=== PATIENT | female | born 1935 | race Caucasian/White ===

== ENCOUNTER 2020-03-26 07:34 | Outpatient (REF) | payer MEDICARE, SELFPAY ==
[2020-03-26 10:08] LABS: MANUAL DIFF FLAG NO
[2020-03-26 10:11] LABS: Glucose Urine UA NEG (NEG); Leukocyte Esterase Urine NEG (NEG); Nitrite Urine NEG (NEG); PH 6.5 (5.0-8.0); Urine Blood NEG (NEG); Urine Ketones NEG (NEG); Urine Protein NEG (NEG-TRACE)
[2020-03-26 10:14] LABS: Appearance Urine HAZY; Color Urine YELLOW
[2020-03-26 10:15] LABS: Basophils Absolute Auto 0.1 X10*3/uL (0.0-0.2); Eosinophils Absolute Auto 0.1 X10*3/uL (0.0-0.4); Eosinophils Percent Auto 1.5 % (0-4); Hematocrit 30.6 % (37-47); Hemoglobin 11.4 g/dl (12.0-16.0); Imm Gran Abs Auto 0.01 X10*3/uL (0.00-0.03); Imm Gran Pct Auto 0.2 % (0.0-0.4); Lymphocytes Percent Auto 16.6 % (20-40); Mean Corpuscular HGB Conc 37.3 g/dl (31.0-35.0); Mean Corpuscular Hemoglobin 35.3 pg (27.0-33.0); Mean Corpuscular Volume 94.7 fL (80-98); Mean Platelet Volume 11.2 fL (9.4-12.3); Monocytes Absolute Auto 0.4 X10*3/uL (0.1-1.2); Monocytes Percent Auto 6.5 % (2-11); Neutrophils Absolute Auto 4.3 X10*3/uL (2.0-8.3); Neutrophils Percent Auto 74.2 % (45-73); Platelet Count 323 X10*3/uL (160-400); Red Blood Count 3.23 X10*6/uL (4.20-5.50); Red Cell Distribution Width 20.2 % (11.0-16.0); White Blood Count 5.8 X10*3/uL (4.8-10.8)
[2020-03-26 10:43] LABS: Alanine Aminotransferase 11 U/L (0-31); Alkaline Phosphatase 73 U/L (39-117); Anion Gap 12 (12-20); Aspartate Amino Transferase 14 U/L (5-31); Bilirubin Total 0.9 mg/dL (0.0-1.0); Blood Urea Nitrogen 19 mg/dL (9-16); Calcium 8.8 mg/dL (8.4-10.2); Carbon Dioxide 29 mmol/L (22-29); Chloride 102 mmol/L (96-108); Cholesterol 143 mg/dL; Estimated Glomerular Filt Rate > 60; Glucose Fasting 86 mg/dL (60-99); HDL Cholesterol 66 mg/dL; LDL Cholesterol Calculated 62 mg/dl; Potassium 4.3 mmol/l (3.3-5.1); Sodium 139 mmol/L (135-145); Total Protein 6.3 g/dL (6.5-8.0); Triglycerides 76 mg/dL
[2020-03-26 11:11] LABS: T4 Thyroxine 7.3 ug/dL (4.5-12.0); Thyroid Stimulating Hormone 2.65 uIU/mL (0.32-4.0)
[2020-03-26 11:24] LABS: Folate > 20.0 ng/mL (> or = 4.0); Vitamin B12 > 2000 pg/mL (200-900)
[2020-03-26 11:45] LABS: Vitamin D 25-OH Total 164.3 ng/mL (>30)
== END 2020-03-26 07:35 | disposition home or self-care (01) ==
LOC: HO.10HDL 07:34
PROVIDERS: Visit Provider Internal Medicine
DX: I10 Essential (primary) hypertension (principal); E78.00 Pure hypercholesterolemia, unspecified; M81.0 Age-related osteoporosis without current pathological fracture; F41.9 Anxiety disorder, unspecified; N39.0 Urinary tract infection, site not specified
CPT/HCPCS: 36415; 80053; 80061; 81003; 82306; 82607; 82746; 84436; 84443; 85025

== ENCOUNTER 2020-03-30 10:46 | Outpatient (REF) | payer MEDICARE, SELFPAY ==
--- NOTE | 2020-03-30 | MM_ITS ---
EXAMINATION: MM DIAGNOSTIC DIGITAL BREAST TOMOSYNTHESIS, BILATERAL CLINICAL INFORMATION: Due for yearly. Also follow-up probable benign parenchymal asymmetry posterior central left breast. The lifetime risk of breast cancer based on the Tyrer-Cuzick Model is 1%. COMPARISON: Mammography: 09/23/2019, 09/11/2019 (BI-RADS 0), 09/09/2018; outside exams 09/03/2017, 08/31/2016 ([facility]). TECHNIQUE: Digital breast tomosynthesis is performed in both the craniocaudal and mediolateral oblique views along with computer-aided detection (CAD). Synthesized 2D images are generated from the tomosynthesis. Additional left CC views are provided. FINDINGS: There are scattered areas of fibroglandular density (ACR BI-RADS breast composition Category b). There is no developing density or interval mass or architectural abnormality or abnormal calcifications. The finding for follow-up posterior central left breast on CC view is less conspicuous, decreased since 09/11/2019. The axilla and skin contours are unremarkable. Results are provided to the patient at time of visit by the technologist. Chronic surveillance for left-sided finding will be included at next bilateral mammography. MM/MM tomosynthesis diagnostic BI IMPRESSION: 1. No mammographic evidence of malignancy. 2. Finding on left for follow-up is less conspicuous, decreased. ASSESSMENT: BI-RADS 3: Probably Benign RECOMMENDATION: Diagnostic mammography at time of next annual exam, due in 12 months. This patient's information was entered into a reminder system with a target due date for their next mammogram.
== END 2020-03-30 10:47 | disposition home or self-care (01) ==
LOC: HO.MAMMO 10:46
PROVIDERS: Visit Provider Internal Medicine
DX: N64.89 Other specified disorders of breast (principal)
CPT/HCPCS: 77062; 77066

== ENCOUNTER 2020-04-26 11:23 | Outpatient (REF) | payer MEDICARE, SELFPAY ==
[2020-04-26 13:48] LABS: MANUAL DIFF FLAG NO
[2020-04-26 13:58] LABS: Basophils Absolute Auto 0.1 X10*3/uL (0.0-0.2); Basophils Percent Auto 1.1 % (0-2); Eosinophils Absolute Auto 0.1 X10*3/uL (0.0-0.4); Eosinophils Percent Auto 1.5 % (0-4); Hematocrit 33.7 % (37-47); Hemoglobin 10.9 g/dl (12.0-16.0); Imm Gran Abs Auto 0.02 X10*3/uL (0.00-0.03); Imm Gran Pct Auto 0.3 % (0.0-0.4); Immature Retic Fraction 15.2 % (3.0-15.9); Lymphocytes Absolute Auto 1.6 X10*3/uL (1.2-4.9); Lymphocytes Percent Auto 25.4 % (20-40); Mean Corpuscular HGB Conc 32.3 g/dl (31.0-35.0); Mean Corpuscular Hemoglobin 27.5 pg (27.0-33.0); Mean Corpuscular Volume 84.9 fL (80-98); Mean Platelet Volume 12.1 fL (9.4-12.3); Monocytes Absolute Auto 0.5 X10*3/uL (0.1-1.2); Monocytes Percent Auto 7.4 % (2-11); Neutrophils Absolute Auto 3.9 X10*3/uL (2.0-8.3); Neutrophils Percent Auto 64.3 % (45-73); Platelet Count 316 X10*3/uL (160-400); Red Blood Count 3.97 X10*6/uL (4.20-5.50); Red Cell Distribution Width 15.1 % (11.0-16.0); Retic HGB Equivalent 32.5 pg (30.0-35.0); Reticulocyte Percent 1.2 % (0.5-1.8); Reticulocytes Absolute 0.046 X10*6/uL (0.026-0.095); White Blood Count 6.1 X10*3/uL (4.8-10.8)
[2020-04-26 14:43] LABS: Iron 98 mcg/dL (30-160); Percent Iron Saturation 26 % (15-50); Total Iron Binding Capacity 380 mcg/dL (228-428); Unsaturated Iron Binding 282 ug/dL
[2020-04-26 15:04] LABS: Ferritin 10 ng/mL (10-250)
[2020-04-30 07:08] LABS: Folate > 20.0 ng/mL (> or = 4.0); Vitamin B12 > 2000 pg/mL (200-900)
== END 2020-04-26 11:24 | disposition home or self-care (01) ==
LOC: HO.10HDL 11:23
PROVIDERS: Visit Provider Internal Medicine
DX: D64.9 Anemia, unspecified (principal)
CPT/HCPCS: 36415; 82607; 82728; 82746; 83540; 85025; 85045

== ENCOUNTER 2020-06-02 09:54 | Emergency (ER) | payer MEDICARE, SELFPAY ==
--- NOTE | ~2020-06-02 | US_ITS ---
EXAMINATION: US VENOUS ULTRASOUND WITH DOPPLER LOWER EXTREMITY, RIGHT CLINICAL INFORMATION: Right calf pain COMPARISON: None TECHNIQUE: Ultrasound of the deep veins is performed from the hip to the calf with compression sonography and color and pulse Doppler assessment. Spectral analysis with color-flow imaging is performed. FINDINGS: There is normal venous compression and respiratory variation and augmented flow. The visualized common femoral vein, superficial femoral vein, profunda femoral vein, popliteal vein, and the trifurcation region shows no evidence of deep venous thrombosis. There is no significant popliteal fossa cyst. US/US venous duplex LE RT IMPRESSION: No DVT demonstrated in the right lower extremity.
--- NOTE | ~2020-06-02 | XR_ITS ---
EXAMINATION: XR KNEE, RIGHT CLINICAL INFORMATION: Right knee pain. COMPARISON: None TECHNIQUE: Four views of the right knee. FINDINGS: There is loss of medial and patellofemoral compartment joint space with moderate periarticular spurring. No loose bodies, bony erosive changes or joint effusion seen. No acute fracture or dislocation. XR/XR knee RT 4V IMPRESSION: Osteoarthritic changes medial and patellofemoral compartment right knee. No abnormal joint effusion or loose body seen.
[2020-06-02 10:09] VITALS: BP 146/92; PULSE 77; RESP 16; TEMP 36.4; O2SAT 98; BMI 24.6
--- NOTE | 2020-06-02 11:01 | ED.GENADULT ---
HPI - General Adult General Chief complaint: Extremity Injury, Lower Stated complaint: leg pain Time Seen by Provider: 06/02/20 12:34 Source: patient Mode of arrival: ambulatory Limitations: no limitations History of Present Illness HPI narrative: Patient presents to ED for right posterior calf pain since yesterday. Patient denies any recent trauma to right lower extremity. Patient came to the ED to be evaluated due to history of DVT in the right leg. Patient denies any chest pain or shortness of breath. Related Data Home Medications Medication Instructions Recorded Confirmed aspirin 81 mg tablet,delayed 81 mg PO DAILY 04/20/20 04/20/20 release calcium carbonate 600 mg calcium 600 mg PO BID 04/20/20 04/20/20 (1,500 mg) tablet estradiol 1 appful VAGINAL DAILY 04/20/20 04/20/20 fluconazole 150 mg tablet 150 mg PO DAILY 04/20/20 04/20/20 hydrochlorothiazide 25 mg tablet 25 mg PO DAILY 04/20/20 04/20/20 multivitamin 1 tab PO DAILY 04/20/20 04/20/20 omeprazole 20 mg capsule,delayed 20 mg PO BID 04/20/20 04/20/20 release oxybutynin chloride 5 mg 5 mg PO DAILY 04/20/20 04/20/20 tablet,extended release 24 hr Previous Rx's Medication Instructions Recorded raloxifene 60 mg tablet 60 mg PO DAILY #90 tab 01/17/20 celecoxib 200 mg capsule 200 mg PO DAILY #90 cap 03/29/20 atorvastatin 10 mg tablet 10 mg PO DAILY #90 tab 04/09/20 lorazepam 1 mg tablet 1 mg PO BID-QID PRN 90 Days #300 04/20/20 tab Allergies Allergy/AdvReac Type Severity Reaction Status Date / Time lisinopril [LISINOPRIL] Allergy Mild COUGH, Verified 04/06/20 11:21 shortness of breath Review of Systems Review of Systems: Yes all other systems are reviewed and are negative Constitutional: Constitutional: Reports as per HPI and Reports no additional constitutional complaints Eyes: Eyes: Reports as per HPI and Reports no additional eye complaints ENT: Reports system reviewed and no additional complaints, except as documented and Reports as per HPI Cardiovascular: Cardiovascular: Reports as per HPI and Reports no additional cardiovascular complaints Respiratory: Respiratory: Reports as per HPI and Reports no additional respiratory complaints Gastrointestinal: Gastrointestinal: Reports as per HPI and Reports no additional gastrointestinal complaints Genitourinary: Genitourinary: Reports no additional female genitourinary complaints and Reports as per HPI Musculoskeletal: Musculoskeletal: Reports no additional musculoskeletal complaints and Reports as per HPI Comments: Right posterior calf pain Neurologic: Reports system reviewed and no additional complaints, except as documented and Reports as per HPI Psychiatric: Psychiatric: Reports no additional psychiatric complaints and Reports as per HPI [facility] Past Medical History Medical History (Updated 06/02/20 @ 16:23 by WARD Montero) Anxiety Basal cell carcinoma Esophageal stricture GERD (gastroesophageal reflux disease) Hypercholesterolemia Hypertension Macular degeneration Osteoarthritis Osteoporosis Thyroid nodule Surgical History History of appendectomy History of bilateral cataract extraction History of left hip replacement History of right hip replacement History of total abdominal hysterectomy and bilateral salpingo-oophorectomy S/P thyroid biopsy Family History Family History (Updated 03/23/20 @ 09:37 by Maria Victoria Toro Robyn) Father Hemorrhage Mother Colitis Brother Multiple myeloma Sister Lymphoma Son In good health Daughter In good health Daughter In good health Social History Social History (Updated 04/20/20 @ 14:26 by Eileen Osborn CMA) Alcohol intake: never Smoking Status: Never smoker Smoked in Last 30 Days: No Use of substances other than those prescribed or required for medical reasons: No Advance Directives: Yes Advance Directives Information Provided: Yes Advance Directives on File: No Physical Exam Vital Signs: Vital Signs: Last Vital Signs Temp 97.6 F 06/02/20 10:09 Pulse 77 06/02/20 10:09 Resp 16 06/02/20 10:09 BP 146/92 H 06/02/20 10:09 Pulse Ox 98 06/02/20 10:09 Body Mass Index 24.6 Const: General: cooperative, healthy appearing, comfortable, no acute distress, well developed, alert and awake Orientation/consciousness: patient oriented x3 HENMT: Head: Yes normal to inspection, Yes No palpable skull fracture present, Yes normocephalic, Yes atraumatic and Yes abrasion Eyes: General: appearance normal, both eyes and all related structures Neck: Neck: Yes normal visual inspection, Yes full ROM, Yes no lymphadenopathy, Yes no meningeal signs, Yes trachea midline, Yes supple and No tender Resp: Effort & Inspection: normal respiratory effort and able to speak in complete sentences Auscultation: clear to auscultation bilaterally Cardio: Jugular venous distension: no JVD Heart sounds: S1 normal heart sound present and S2 normal heart sound present GI: Inspection: Yes normal to inspection and No abdominal wall ecchymosis Palpation (GI): Soft to palpation, not firm, nontender, no guarding and not rigid : General: No CVA tenderness and Yes no CVA tenderness Back/Spine/Pelvis: Back: no CVA tenderness, No CVA tenderness and No back tenderness Skin: General skin exam: no rashes or lesions noted and elasticity normal Neuro: General: patient oriented x3, moves all extremities and no meningeal signs Cranial nerves: Yes CN's II-XII intact bilaterally Extrem: Other: Right lower extremity: Negative for swelling, redness, hotness, ecchymosis, deformity of knee/thigh/leg/foot. Mild calf tenderness. Palpable pedal pulses. Vascular/motor/neuro exam intact. Negative for pitting edema Psych: Appearance: grossly normal, well kempt and not disheveled Course Course Course Narrative: Due to history of DVT patient will be sent for right lower extremity ultrasound to make sure there is no DVT. Reevaluation(s) Reevaluation #1: Lower extremity negative for DVT. Reevaluation #2: Xray negative for fracture. positive for osteoarthritis. Medical Decision Making MDM Narrative Medical decision making narrative: osteoarthritis Discharge Plan Discharge Clinical Impression: Osteoarthritis Patient Disposition: Home, Self-Care Instructions: Osteoarthritis (ED), Arthritis (ED) Additional Instructions: Return to the ED for lower extremity swelling, pitting edema, redness, calf pain, fever, chills, chest pain, shorntess of breath, worsening knee pain, or any other concerning symptoms. Take over the counter tyelnol for pain. Prescriptions: No Action raloxifene 60 mg tablet 60 mg PO DAILY Qty: 90 RF: 3 celecoxib 200 mg capsule 200 mg PO DAILY Qty: 90 RF: 2 atorvastatin 10 mg tablet 10 mg PO DAILY Qty: 90 RF: 3 multivitamin Tablet 1 tab PO DAILY RF: 0 calcium carbonate [Calcium 600] 600 mg calcium (1,500 mg) tablet 600 mg PO BID RF: 0 aspirin [Adult Aspirin Regimen] 81 mg tablet,delayed release (DR/EC) 81 mg PO DAILY RF: 0 fluconazole [Diflucan] 150 mg tablet 150 mg PO DAILY RF: 0 estradiol [Estrace] 0.01 % (0.1 mg/gram) cream 1 appful vaginal DAILY RF: 0 oxybutynin chloride [Ditropan XL] 5 mg tablet extended release 24hr 5 mg PO DAILY RF: 0 hydrochlorothiazide 25 mg tablet 25 mg PO DAILY RF: 0 omeprazole 20 mg capsule,delayed release(DR/EC) 20 mg PO BID RF: 0 lorazepam 1 mg tablet 1 mg PO BID-QID PRN (Reason: anxiety) 90 Days Qty: 300 RF: 2 Referrals: Po,Tor Fang MD [Primary Care Provider] - 2 days (Ultrasound negative for DVT. knee Xray shows osteoarthritis.) Print Language: Ukrainian
== END 2020-06-02 17:00 | disposition home or self-care (01) ==
PROVIDERS: Emergency Provider Emergency Medicine; PCP Internal Medicine
DX: M19.09 Primary osteoarthritis, other specified site (principal); M79.661 Pain in right lower leg; I10 Essential (primary) hypertension; Z86.718 Personal history of other venous thrombosis and embolism; Z79.82 Long term (current) use of aspirin; Z79.899 Other long term (current) drug therapy
CPT/HCPCS: 73564; 93971; 99283; 99284

== ENCOUNTER 2020-06-08 09:06 | Outpatient (REF) | payer MEDICARE, SELFPAY ==
[2020-06-08 10:26] LABS: MANUAL DIFF FLAG NO
[2020-06-08 10:42] LABS: Basophils Absolute Auto 0.1 X10*3/uL (0.0-0.2); Basophils Percent Auto 1.5 % (0-2); Eosinophils Absolute Auto 0.1 X10*3/uL (0.0-0.4); Eosinophils Percent Auto 2.3 % (0-4); Hematocrit 34.5 % (37-47); Imm Gran Abs Auto 0.01 X10*3/uL (0.00-0.03); Imm Gran Pct Auto 0.2 % (0.0-0.4); Immature Retic Fraction 10.8 % (3.0-15.9); Lymphocytes Absolute Auto 1.3 X10*3/uL (1.2-4.9); Lymphocytes Percent Auto 25.3 % (20-40); Mean Corpuscular HGB Conc 31.9 g/dl (31.0-35.0); Mean Corpuscular Hemoglobin 27.2 pg (27.0-33.0); Mean Corpuscular Volume 85.4 fL (80-98); Mean Platelet Volume 11.9 fL (9.4-12.3); Monocytes Absolute Auto 0.4 X10*3/uL (0.1-1.2); Monocytes Percent Auto 8.1 % (2-11); Neutrophils Absolute Auto 3.3 X10*3/uL (2.0-8.3); Neutrophils Percent Auto 62.6 % (45-73); Platelet Count 300 X10*3/uL (160-400); Red Blood Count 4.04 X10*6/uL (4.20-5.50); Red Cell Distribution Width 15.2 % (11.0-16.0); Retic HGB Equivalent 29.9 pg (30.0-35.0); Reticulocytes Absolute 0.042 X10*6/uL (0.026-0.095); White Blood Count 5.2 X10*3/uL (4.8-10.8)
[2020-06-08 11:01] LABS: Iron 41 mcg/dL (30-160); Percent Iron Saturation 11 % (15-50); Total Iron Binding Capacity 357 mcg/dL (228-428); Unsaturated Iron Binding 316 ug/dL
[2020-06-08 11:08] LABS: Ferritin 11 ng/mL (10-250)
[2020-06-08 11:29] LABS: Folate 19.1 ng/mL (> or = 4.0); Vitamin B12 1815 pg/mL (200-900)
== END 2020-06-08 09:07 | disposition home or self-care (01) ==
LOC: HO.10HDL 09:06
PROVIDERS: Visit Provider Internal Medicine
DX: D64.9 Anemia, unspecified (principal)
CPT/HCPCS: 36415; 82607; 82728; 82746; 83540; 85025; 85045

== ENCOUNTER 2020-10-19 12:15 | Outpatient (REF) | payer MEDICARE, SELFPAY ==
[2020-10-19 14:01] LABS: Glucose Urine UA NEG (NEG); Leukocyte Esterase Urine 3+ (NEG); Nitrite Urine NEG (NEG); Specific Gravity - Urine 1.015 (1.005-1.025); UACC Culture Trigger YES; Urine Blood NEG (NEG); Urine Ketones NEG (NEG); Urine Protein NEG (NEG-TRACE)
[2020-10-19 14:07] LABS: Appearance Urine CLEAR; Color Urine YELLOW
[2020-10-19 14:16] LABS: RBC Urine 0 /HPF (0); Squamous Epithelial Cell Urine TRACE /LPF; WBC Urine 30-49 /HPF (0-4)
[2020-10-19 14:17] LABS: Bacteria Urine 3+ /LPF; Renal Epithelial Cells Urine TRACE /LPF; WBC Clumps Urine NOTED
== END 2020-10-19 12:16 | disposition home or self-care (01) ==
LOC: HO.LAB 12:15
PROVIDERS: PCP Internal Medicine; Visit Provider Internal Medicine
DX: R30.0 Dysuria (principal)
CPT/HCPCS: 81001; 81003; 87086; 87088; 87186

== ENCOUNTER 2021-03-22 12:26 | Outpatient (REF) | payer MEDICARE, SELFPAY ==
--- NOTE | ~2021-03-22 | MM_ITS ---
EXAMINATION: MM DIAGNOSTIC DIGITAL BREAST TOMOSYNTHESIS, BILATERAL CLINICAL INFORMATION: Due for yearly. Also follow-up probable benign parenchymal asymmetry posterior central left breast on CC view. Age 85. No known family history breast cancer. COMPARISON: Mammography: 03/30/2020, 09/23/2019, 09/11/2019 (BI-RADS 0), 09/09/2018, 09/03/2017, 08/31/2016. TECHNIQUE: Digital breast tomosynthesis is performed in both the craniocaudal and mediolateral oblique views along with computer-aided detection (CAD). Synthesized 2D images are generated from the tomosynthesis. FINDINGS: There are scattered areas of fibroglandular density (ACR BI-RADS breast composition Category b). There are for follow-up is less conspicuous and likely similar to 2017. Left breast will be reassessed again at diagnostic exam at time of annual mammography, due in 12 months. The breasts are otherwise unremarkable with no interval mass or architectural abnormality or developing density. There are scattered bilateral vascular calcifications. There are some increased vascular calcifications mid outer right breast. The axilla and skin contours are unremarkable. Results are provided to the patient at time of visit by the technologist. MM/MM tomosynthesis diagnostic BI IMPRESSION: No significant changes from prior exams. No developing density. ASSESSMENT: BI-RADS 3: Probably Benign RECOMMENDATION: Diagnostic mammography at time of next annual exam, due in 12 months. This patient's information was entered into a reminder system with a target due date for their next mammogram.
== END 2021-03-22 12:27 | disposition home or self-care (01) ==
LOC: HO.MAMMO 12:26
PROVIDERS: PCP Internal Medicine; Visit Provider Internal Medicine
DX: N64.89 Other specified disorders of breast (principal)
CPT/HCPCS: 77062; 77066

== ENCOUNTER → 2021-09-20 08:56 | Outpatient (REF) | payer MEDICARE, SELFPAY ==
--- NOTE | 2021-09-20 09:03 | CA_ITS ---
Transthoracic Echocardiogram Patient (Last, First, Middle): Kim Herbert C Gender: Female Date of : 1935 Age: 85 Procedure Date: 09/20/2021 Procedure Type: Transthoracic Echocardiogram Location: OP Height: 162.56 cm Weight: 67.13 kg BSA: 1.72 m2 Heart Rate: bpm BP: 124 / 60 mmHg Conference Assistant: JEANINE Referring MD: Tor Rayo MD Magnetic Tape Typewriter Operator: Luis Sena MD Symptoms: R01.1 - Cardiac murmur, unspecified Study Quality: Good ECG Rhythm: Sinus Conclusions: - 1. Normal LV systolic function with impaired relaxation filling pattern and elevated filling pressures 2. Mildly dilated left atrium 3. Mild aortic stenosis 4. Moderate mitral calcification with [id number] mitral regurgitation 5. Normal RV systolic pressure 6. No gross pericardial effusion Findings Left Ventricle Normal left ventricular size, thickness, and systolic function. The visually estimated ejection fraction is between 60-65%. Spectral Doppler is indicative of an impaired relaxation filling pattern. Elevated filling pressures. E/E prime ratio is >15, consistent with elevated filling pressures. Right Ventricle Normal right ventricular cavity size and systolic function. Atria The left atrium is mildly dilated. There is no evidence of interatrial shunt. The right atrium is likely dilated. Aortic Valve There is mild calcification of the aortic valve. There is mild thickening of the aortic valve. There is mild aortic valve stenosis. The mean gradient is 12 mmHg. The aortic valve area is 1.53 cm2. There is no aortic valve regurgitation. Mitral Valve There is mild anterior and moderate posterior mitral leaflet thickening. There is moderate mitral annular calcification. There is mild to moderate mitral valve regurgitation. There is no mitral valve stenosis. Pulmonic Valve The pulmonic valve was not well visualized. Tricuspid Valve Likely normal tricuspid valve structure and function. There is trace tricuspid valve regurgitation. The right ventricular systolic pressure is normal. The right ventricular systolic pressure is 23 mmHg. Normal right atrial pressure. Great Vessels All visible segments of the aorta are normal in size. The pulmonary artery was not well visualized. Venous The inferior vena cava is normal in size and collapses greater than 50% with inspiration. Pericardium/Pleural There is no evidence of pericardial effusion. Prior Study Comparison Changes noted compared to prior study dated: 10/18/2015. mild aortic stenosis is noted and [id number] mitral regurgitation is noted Measurements 2D Linear Measurements IVSd: 1.07 0.6-0.9/0.6-1.0 cm LVIDd: 3.04 3.9-5.3/4.2-5.9 cm LVIDd Index: 1.77 2.4-3.2/2.2-3.1 cm/m2 LVIDs: 1.82 2.0-3.6 cm LVPWd: 1.09 0.7-1.1 cm Ao Root: 3.10 2.1-3.5 cm LA Diam: 3.50 2.7-3.8/3.0-4.0 cm LAIDs Index: 2.03 1.5-2.3 cm/m2 LV Mass: 117.01 67-162/88-224 g LV Mass Index: 68.03 43-95/49-115 g/m2 LVOT Diam: 2.00 3.0+(-)1.3 cm Mitral Valve MV VTI: 0.39 MV Pk Mat: 1.43 MV Mn Mat: 0.84 MV Pk Grad: 8.00 MV Mn Grad: 3.00 MV Pk E: 0.99 MV PK A: 1.35 MV Decel Time: 265.00 E/A: 0.70 E'Lateral: 4.68 E'Medial: 4.57 E/E' Med: 21.80 E/E' Lat: 21.20 PHT: 78.00 MVA PHT: 2.82 MVA Continuity: 2.29 Decel Loup: 3.75 Aortic Valve AoV Pk Mat: 2.45 AoV Mn Mat: 1.56 AoV VTI: 0.58 AoV Pk Grad: 24.00 Aov Mn Grad: 12.00 GIULIA Cont.VTI: 1.53 LVOT LVOT Pk Mat: 1.08 LVOT Mn Mat: 0.72 LVOT VTI: 0.28 LVOT Pk Grad: 5.00 LVOT Mn Grad: 3.00 LVOT Diam: 2.00 LVOT Area: 3.14 Diastolic Function MV Pk E: 0.99 MV Pk A: 1.35 E/A: 0.70 E'Medial: 4.57 E/E' Med: 21.80 E' Laterial: 4.68 E/E' Lat: 21.20 Right Ventricle TAPSE (mm): 32.00 Tricuspid Valve TR Pk Mat: 2.26 TR Pk Grad: 20.00 RA Press: 3.00 RVSP: 23.00 Great Vessels Aorta Ao Root-2D: 3.10 2.0-3.7 cm Ao Asc: 3.20 2.1-3.4 cm Pulmonary Valve PV Pk Mat: 1.13 Peak PV Grad: 5.00 Updated in Other Vendor System with Status of Final Luis Sena MD electronically signed on 09/20/2021 1:28:04 PM with status of Final
[2021-09-20 09:10] LABS: MANUAL DIFF FLAG NO
--- NOTE | 2021-09-20 09:25 | ECG_ITS ---
Test Reason : R01.1 Blood Pressure : / mmHG Vent. Rate : 087 BPM Atrial Rate : 087 BPM P-R Int : 180 ms QRS Dur : 086 ms QT Int : 368 ms P-R-T Axes : 066 014 049 degrees QTc Int : 442 ms Normal sinus rhythm Normal ECG When compared with ECG of 05-JUN-2006 10:34, No significant change was found Referred By: Natalya Crawford Electronically Signed By:Cody Kramer
[2021-09-20 09:55] LABS: Basophils Percent Auto 0.6 % (0-2); Eosinophils Absolute Auto 0.1 X10*3/uL (0.0-0.4); Hematocrit 36.3 % (37.0-47.0); Hemoglobin 11.9 g/dl (12.0-16.0); Imm Gran Abs Auto 0.03 X10*3/uL (0.00-0.03); Imm Gran Pct Auto 0.4 % (0.0-0.4); Lymphocytes Absolute Auto 1.4 X10*3/uL (1.2-4.9); Lymphocytes Percent Auto 20.4 % (20-40); Mean Corpuscular HGB Conc 32.8 g/dl (31.0-35.0); Mean Corpuscular Hemoglobin 27.2 pg (27.0-33.0); Mean Corpuscular Volume 83.1 fL (80.0-98.0); Mean Platelet Volume 10.7 fL (9.4-12.3); Monocytes Absolute Auto 0.5 X10*3/uL (0.1-1.2); Monocytes Percent Auto 6.9 % (2-11); Neutrophils Absolute Auto 4.7 x10*3/uL (2.0-8.3); Neutrophils Percent Auto 70.7 % (45-73); Platelet Count 309 X10*3/uL (160-400); Red Blood Count 4.37 X10*6/uL (4.20-5.50); Red Cell Distribution Width 14.6 % (11.0-16.0); White Blood Count 6.7 X10*3/uL (4.8-10.8)
[2021-09-20 10:22] LABS: Alanine Aminotransferase 14 U/L (0-31); Albumin Level 4.5 g/dL (3.5-5.0); Alkaline Phosphatase 76 U/L (39-117); Anion Gap 11 (12-20); Aspartate Amino Transferase 18 U/L (5-31); Blood Urea Nitrogen 15 mg/dL (9-16); Calcium 9.4 mg/dL (8.4-10.2); Carbon Dioxide 28 mmol/L (22-29); Chloride 99 mmol/L (96-108); Cholesterol 136 mg/dL; Estimated Glomerular Filt Rate > 60; Glucose Random 93 mg/dL (60-115); HDL Cholesterol 62 mg/dL; LDL Cholesterol Calculated 57 mg/dl; Potassium 4.3 mmol/L (3.3-5.1); Sodium 134 mmol/L (135-145); Triglycerides 88 mg/dL
[2021-09-20 10:47] LABS: Thyroid Stimulating Hormone 2.08 uIU/mL (0.32-4.0)
[2021-09-20 11:22] LABS: Folate > 20.0 ng/mL (> or = 4.0); Vitamin B12 1900 pg/mL (200-900)
== END ==
LOC: HO.CARD 08:56
PROVIDERS: Absent Provider Internal Medicine; PCP Internal Medicine; Visit Provider Nurse Practitioner Family
DX: R01.1 Cardiac murmur, unspecified (principal); I10 Essential (primary) hypertension; K21.9 Gastro-esophageal reflux disease without esophagitis; E78.00 Pure hypercholesterolemia, unspecified; M81.0 Age-related osteoporosis without current pathological fracture
CPT/HCPCS: 36415; 80053; 80061; 82306; 82607; 82746; 84439; 84443; 85025; 93005; 93306

== ENCOUNTER 2021-10-19 15:15 | Outpatient (REF) | payer MEDICARE, SELFPAY ==
[2021-10-19 17:31] LABS: Appearance Urine Clear; Color Urine Yellow; Glucose Urine UA Negative (Negative); Leukocyte Esterase Urine Negative (Negative); Nitrite Urine Negative (Negative); PH 6.5 (5.0-8.0); Specific Gravity - Urine <= 1.005 (1.005-1.025); Urine Blood Negative (Negative); Urine Ketones Negative (Negative); Urine Protein Negative (Neg-Trace)
== END 2021-10-19 15:16 | disposition home or self-care (01) ==
LOC: HO.LAB 15:15
PROVIDERS: PCP Internal Medicine; Visit Provider Internal Medicine
DX: R30.0 Dysuria (principal)
CPT/HCPCS: 81003

== ENCOUNTER 2021-11-15 14:10 | Outpatient (REF) | payer MEDICARE, SELFPAY ==
--- NOTE | ~2021-11-15 | MM_ITS ---
EXAMINATION: BONE DENSITOMETRY CLINICAL INDICATION: Age-related osteoporosis without current pathological fracture. COMPARISON: Previous BD dated 04/08/2019 and baseline BD dated 12/07/2006, spine; 08/27/2014, left forearm radius 33%. TECHNIQUE: Using a [employer]oyoo DXA System (software version: 13.1) manufactured by [employer] dual-energy x-ray absorptiometry was performed of the lumbar spine and left forearm radius 33%. Patient had 2 hip replacements, precluding bone density measurement. The images are of good technical quality. Summary results are attached. FINDINGS: AP SPINE L1-L4 (excluding L2): The data of L1-L4 has been changed to exclude the L2 vertebral body, because degenerative changes at this level may cause overestimation of lumbar spine density. Current: BMD 0.905 g/cm2, Z-score -0.3, T-score -2.2, osteopenia, 1.0% increase from previous, 11.9% decrease from baseline (<5% change is not significant). Prior: BMD 0.896 g/cm2. Baseline: BMD 1.027 g/cm2. LEFT FOREARM RADIUS 33%: BMD 0.569 g/cm2, Z-score -0.2, T-score -3.5, osteoporosis, 12.9% decrease from previous, 15.1% decrease from baseline (<5% change is not significant). Prior: BMD 0.653 g/cm2. Baseline: BMD 0.670 g/cm2. IDENTIFIED RISK FACTORS: Osteoporosis, low calcium intake, family history (parental hip fracture), history of fracture (adult). Early menopause, secondary osteoporosis, thiazide hysterectomy, bilateral oophorectomy. HISTORY OF FRACTURE: Wrist. MEDICATIONS: Calcium supplements or multivitamin, vitamin D. MM/XR DEXA axial skeleton IMPRESSION: 1. DIAGNOSIS: Osteoporosis based on the lowest T-score value of -3.5 in the forearm radius 33% applying World Health Organization criteria. 2. 10-YEAR FRACTURE RISK PREDICTION, FRAX: Not performed in this patient without a femoral neck BMD measurement. 3. Treatment Recommendations: NOF guidelines recommend consideration for treatment in postmenopausal women and men age 50 and older presenting with the following: -A hip or vertebral (clinical or morphometric) fracture. -T-score less than or equal to -2.5 at the femoral neck or spine after appropriate evaluation to exclude secondary causes. -Low bone mass at the hip or spine and a 10-year fracture probability by FRAX of greater than or equal to 3% for hip fracture or greater than or equal to 20% for major osteoporotic fracture based on the [place] adapted WHO algorithm. 4. Other Recommendations: All treatment decisions require clinical judgment and consideration of individual patient factors, including patient preferences, comorbidities, previous drug use, risk factors not captured in the FRAX model (e.g. frailty, falls, vitamin D deficiency, increased bone turnover, interval significant decline in bone density) and possible under or overestimation of fracture risk by FRAX. Additional medical evaluation for secondary cause of low bone mineral density may be appropriate. FUTURE SCAN RECOMMENDATION: People with diagnosed cases of osteoporosis or at high risk for fracture should have regular bone mineral density tests. For patients eligible for Medicare, routine testing is allowed once every 2 years. The testing frequency can be increased to one year for patients who have rapidly progressing disease, those who are receiving or discontinuing medical therapy to restore bone mass, or have additional risk factors.
== END 2021-11-15 14:11 | disposition home or self-care (01) ==
LOC: HO.MAMMO 14:10
PROVIDERS: PCP Internal Medicine; Visit Provider Internal Medicine
DX: Z13.820 Encounter for screening for osteoporosis (principal); M81.0 Age-related osteoporosis without current pathological fracture; Z78.0 Asymptomatic menopausal state
CPT/HCPCS: 77080

== ENCOUNTER 2022-03-22 13:13 | Outpatient (REF) | payer MEDICARE, SELFPAY ==
--- NOTE | ~2022-03-22 | MM_ITS ---
EXAMINATION: MM DIAGNOSTIC DIGITAL BREAST TOMOSYNTHESIS, BILATERAL CLINICAL INFORMATION: Due for yearly. Follow-up probable benign parenchymal asymmetry posterior central left breast. COMPARISON: Mammography: 03/22/2021, 03/30/2020, 09/23/2019, 09/11/2019, 01/10/2019, 09/03/2017, 08/31/2016; left breast ultrasound 09/23/2019 TECHNIQUE: Digital breast tomosynthesis is performed in both the craniocaudal and mediolateral oblique views along with computer-aided detection (CAD). Synthesized 2D images are generated from the tomosynthesis. FINDINGS: There are scattered areas of fibroglandular density (ACR BI-RADS breast composition Category b). The breast parenchymal pattern shows no erosive changes from prior study. There is no developing density or architectural abnormality or significant mass or abnormal calcifications. Again, there are scattered round and vascular calcifications. The area for follow-up is less conspicuous. The axilla and skin contours are are unremarkable. Results are provided to the patient at time of visit by the technologist. MM/MM tomosynthesis diagnostic BI IMPRESSION: No mammographic evidence of malignancy. ASSESSMENT: BI-RADS 2: Benign RECOMMENDATION: Routine annual mammography screening. This patient's information was entered into a reminder system with a target due date for their next mammogram.
== END 2022-03-22 13:14 | disposition home or self-care (01) ==
LOC: HO.MAMMO 13:13
PROVIDERS: Visit Provider Internal Medicine
DX: N64.89 Other specified disorders of breast (principal)
CPT/HCPCS: 77062; 77066

== ENCOUNTER 2022-04-10 09:38 | Outpatient (RCR) | payer MEDICARE, SELFPAY ==
[2022-04-10 10:09] VITALS: BP 138/67; PULSE 75; O2SAT 99
== END 2022-04-11 15:22 | disposition home or self-care (01) ==
LOC: HO.PT 09:38
PROVIDERS: PCP Internal Medicine
DX: M54.50 Low back pain, unspecified (principal); M25.552 Pain in left hip
CPT/HCPCS: 97110; 97162

== ENCOUNTER 2022-09-11 11:22 | Outpatient (AMB) | payer MEDICARE, SELFPAY ==
--- NOTE | 2022-09-11 11:25 | A.OFFPC_ITS ---
Vital Signs 09/11/22 11:27 Height 5 ft 5 in Weight 148 lb BMI 24.6 BP 130/68 Blood Pressure Location Lt brachial Position Sitting Pulse 80 Pulse Source Pulse Oximeter Pulse Oximetry (%) 95 Oxygen Delivery Method Room Air Intake Visit Reasons: right eye September 14 cataract Allergies lisinopril [LISINOPRIL] Allergy (Mild, Verified 09/11/22 11:28) COUGH, shortness of breath Medication List - Last Reconciled 09/11/22 by Tor Rayo MD atorvastatin 10 mg PO DAILY calcium carbonate (Calcium) 600 mg PO BID celecoxib 200 mg PO DAILY estradiol 0.01%(0.1mg/gram) (Estrace) 1 appful vaginal DAILY hydrochlorothiazide 25 mg PO DAILY lorazepam 1 mg PO BID-QID PRN 75 days multivitamin 1 tab PO DAILY omeprazole 20 mg PO BID oxybutynin chloride ER (Ditropan XL) 5 mg PO DAILY raloxifene 60 mg PO DAILY Tobacco use date assessed: 04/20/22 Fall risk assessment: No Falls in past year Last assessed Fall Risk: 09/11/22 Dental Screening Dental Screen Date: 09/11/22 Did you have a dental visit in the last 12 months?: Yes Did you have a dental problem in the last 6 months where you did not have access to dental care?: No Was dental information given to patient?: Patient has dentist HPI right eye September 14 cataract HPI Details 86-year-old female with hypertension, hypercholesterolemia GERD generalized anxiety disorder and osteoporosis last seen in April 2022 coming in for preoperative evaluation for cataract surgery.. Review of the notes patient sees Orthopedics for the left lateral hip pain April 2022 status post left total hip replacement due to this location diagnosis of right trochanteric bursitis sent for physical therapy did also have some steroid injections.. 09/14/2022 Left eye surgery laser [facility] Medical History Basal cell carcinoma Esophageal stricture GERD (gastroesophageal reflux disease) Hypercholesterolemia Hypertension Macular degeneration Osteoarthritis Osteoporosis Thyroid nodule Surgical History History of appendectomy History of bilateral cataract extraction History of left hip replacement History of right hip replacement History of total abdominal hysterectomy and bilateral salpingo-oophorectomy S/P thyroid biopsy Family History (Updated 09/11/22 @ 11:28 by Elieen Osborn CMA) Father Hemorrhage Mother Colitis Brother Multiple myeloma Sister Lymphoma Son In good health Daughter In good health Daughter In good health Social History Housing: House Alcohol intake: never Patient Tobacco Use Status: Never used Tobacco e-Cigarette/Vaping Use: Currently Using Second Hand Smoke Exposure: No service: No Current occupational status: retired Cognitive needs: Yes (cane) Hearing needs: No Vision needs: Yes Questionnaire PHQ-9 Over the last 2 weeks, how often have you been bothered by any of the following problems? 1. Little interest or pleasure in doing things: not at all 2. Feeling down, depressed, or hopeless: not at all 3. Trouble falling or staying asleep, or sleeping too much: not at all 4. Feeling tired or having little energy: not at all 5. Poor appetite or overeating: not at all 6. Feeling bad about yourself - or that you are a failure or have let yourself or your family down: not at all 7. Trouble concentrating on things, such as reading the newspaper or watching television: not at all 8. Moving or speaking so slowly that other people could have noticed. Or the opposite - being so fidgety or restless that you have been moving around a lot more than usual: not at all 9. Thoughts that you would be better off or of hurting yourself in some way: not at all Total score: 0 Depression Screening Interpretation: Negative Source: Developed by Drs. Michael Lindsay, Riki Beasley and colleagues, with an educational caitie from [employer]. Thrive Questionnaire Date Thrive assessed: 04/20/22 AUDIT C Alcohol Use Questionnaire (AUDIT-C) 1. How often do you have a drink containing alcohol?: Monthly or less 2. How many drinks containing alcohol do you have on a typical day when you are drinking?: 1 or 2 3. How often do you have six or more drinks on one occasion?: Never Total Score: 1 DANNA-7 AMB Questionnaire DANNA-7 Date DANNA - 7 assessed: 04/20/22 Source: Developed by Drs. Michael Lindsay, Riki Beasley and colleagues, with an educational caitie from [employer]. Review of Systems Const Denies poor appetite and Denies weakness Eyes Denies no additional complaints ENT Reports Normal hearing present, Denies dizziness, Denies nasal congestion, Denies tinnitus and Denies sore throat Card Denies chest pain, Denies syncope, Denies rapid heart rate and Denies dyspnea Resp Denies cough and Denies dyspnea GI Denies change in stool character, Reports constipation, Denies diarrhea, Denies nausea and Denies vomiting Denies urinary frequency, Denies difficulty voiding and Denies dysuria Neuro Reports Normal hearing present, Denies confusion, Denies dizziness, Denies syncope and Denies weakness Psych Denies confusion Physical exam (Primary Care) Vital Signs: Last Vital Signs Pulse 80 09/11/22 11:27 BP 130/68 09/11/22 11:27 Pulse Ox 95 09/11/22 11:27 Oxygen Delivery Method Room Air 09/11/22 11:27 BMI result Body Mass Index 24.6 Tobacco/Smoking Status: Tobacco use Status Tobacco use date assessed 04/20/22 09/11/22 11:39 Patient Tobacco Use Status Never used Tobacco 09/11/22 11:39 e-Cigarette/Vaping Use Currently Using 09/11/22 11:39 PHQ-9: PHQ-9 Score PHQ-9: Total score 0 09/11/22 11:39 Depression Screening Interpretation: Negative Thrive Assessment: Date of Thrive Assessment Date Thrive assessed 04/20/22 09/11/22 11:39 Const General: No confusion Orientation/consciousness: No confusion Eyes Conjunctivae: conjunctivae normal Resp Auscultation: clear to auscultation bilaterally Cardio Rate: regular rate Rhythm: regular rhythm GI Inspection: Yes normal to inspection Neuro General: No confusion Cranial nerves: Yes Normal hearing present Extrem General: Yes normal to inspection and No edema Assessment and Plan Assessment & Plan (1) Preop exam for internal medicine: Code(s): Z01.818 - Encounter for other preprocedural examination Plan: Going to undergo eye surgery but not cataracts. Blood work requested and EKG and awaiting results. With the age patient belongs to the intermediate risk category (2) Hypertension: Code(s): I10 - Essential (primary) hypertension Qualifiers: Hypertension type: essential hypertension Qualified Code(s): I10 - Essential (primary) hypertension Plan: Continue with blood pressure medication. Decrease salt intake and exercise patient continues on hydrochlorothiazide 25 mg once a day (3) Hypercholesterolemia: Code(s): E78.00 - Pure hypercholesterolemia, unspecified Plan: Avoid fried foods, chicken skin, eggs, butter margarine, pastries and meat. Be it pork or beef they have a lot of cholesterol on atorvastatin 10 mg once a day (4) GERD (gastroesophageal reflux disease): Code(s): K21.9 - Gastro-esophageal reflux disease without esophagitis Qualifiers: Esophagitis presence: without esophagitis Qualified Code(s): K21.9 - Gastro-esophageal reflux disease without esophagitis Plan: Avoid the foods that causes that usually spicy foods, tomato products, juices, coffee, soda and foods that your sensitive to. After eating do not lie down, allow 3-4 hours before in lie down. And keep the head of bed above 30 degrees to avoid the acid from going up. Takes omeprazole 20 mg twice a day (5) Generalized anxiety disorder: Code(s): F41.1 - Generalized anxiety disorder Plan: Continue with lorazepam as needed (6) Hip pain, left: Code(s): M25.552 - Pain in left hip (7) Tinnitus: Code(s): H93.19 - Tinnitus, unspecified ear Orders: Orders Basic Metabolic Panel Today Z01.818 - Encounter for other preprocedural examination ECG 12 lead EKG Today Z01.818 - Encounter for other preprocedural examination Referrals Speech and Hearing Referral H93.19 - Tinnitus, unspecified ear Medications: New lidocaine 5% leave on most painful area for up to 12 hrs 1 patch topical DAILY 30 ea 3RF M25.552 - Pain in left hip Coding Level of Care Code Est Pt Level 4 (70772) Diagnoses Preop exam for internal medicine Z01.818 Hypertension I10 Hypertension type: essential hypertension Hypercholesterolemia E78.00 GERD (gastroesophageal reflux disease) K21.9 Esophagitis presence: without esophagitis Generalized anxiety disorder F41.1 Hip pain, left M25.552 Tinnitus H93.19
[2022-09-11 11:27] VITALS: BP 130/68; PULSE 80; O2SAT 95; BMI 24.6
== END 2022-09-11 12:09 | disposition home or self-care (01) ==
PROVIDERS: PCP Internal Medicine; Visit Provider Internal Medicine
DX: Z01.818 Encounter for other preprocedural examination (principal); I10 Essential (primary) hypertension; E78.00 Pure hypercholesterolemia, unspecified; K21.9 Gastro-esophageal reflux disease without esophagitis; F41.1 Generalized anxiety disorder; M25.552 Pain in left hip; H93.19 Tinnitus, unspecified ear
CPT/HCPCS: 99214

== ENCOUNTER 2022-09-11 12:14 | Outpatient (REF) | payer MEDICARE, SELFPAY | END 2022-09-11 12:15 | disposition home or self-care (01) | LOC: HO.LAB 12:14 | PROVIDERS: PCP Internal Medicine; Visit Provider Internal Medicine | DX: Z01.818 Encounter for other preprocedural examination (principal) | CPT/HCPCS: 36415; 80048; 93005 ==

== ENCOUNTER → 2022-09-11 12:20 | Outpatient (BNV) | payer MEDICARE, SELFPAY | PROVIDERS: PCP Internal Medicine; Visit Provider Internal Medicine Cardiovascular Disease | DX: Z01.818 Encounter for other preprocedural examination (principal); H25.9 Unspecified age-related cataract | CPT/HCPCS: 93010 ==

== ENCOUNTER 2023-03-28 12:50 | Outpatient (REF) | payer MEDICARE, SELFPAY | END 2023-03-28 12:51 | disposition home or self-care (01) | LOC: HO.MAMMO 12:50 | PROVIDERS: PCP Internal Medicine; Visit Provider Internal Medicine | DX: Z12.31 Encounter for screening mammogram for malignant neoplasm of breast (principal) | CPT/HCPCS: 77063; 77067 ==

== ENCOUNTER → 2023-03-28 13:15 | Outpatient (BNV) | payer MEDICARE, SELFPAY | PROVIDERS: PCP Internal Medicine; Visit Provider Radiology Diagnostic Radiology | DX: Z12.31 Encounter for screening mammogram for malignant neoplasm of breast (principal) | CPT/HCPCS: 77063; 77067 ==

== ENCOUNTER 2023-04-24 13:16 | Outpatient (REF) | payer MEDICARE, SELFPAY | END 2023-04-24 13:17 | disposition home or self-care (01) | LOC: HO.SH 13:16 | PROVIDERS: Visit Provider Internal Medicine | DX: H90.3 Sensorineural hearing loss, bilateral (principal); H93.13 Tinnitus, bilateral | CPT/HCPCS: 92557; 92567 ==

== ENCOUNTER 2023-06-04 17:03 | Outpatient (AMB) | payer MEDICARE, SELFPAY ==
--- NOTE | 2023-06-04 17:15 | A.OFFPC_ITS ---
Vital Signs 06/04/23 17:16 Height 5 ft 1 in Weight 155 lb BMI 29.3 BP 130/70 Blood Pressure Location Lt brachial Position Sitting Pulse 90 Pulse Source Pulse Oximeter Pulse Oximetry (%) 98 Oxygen Delivery Method Room Air Intake Visit Reasons: Follow Up Gerd/ HTN Experiential Therapist Required: No Accompanied by: Daughter Allergies lisinopril [LISINOPRIL] Allergy (Mild, Verified 06/04/23 17:21) COUGH, shortness of breath Tobacco use date assessed: 06/04/23 Fall risk assessment: No Falls in past year Last assessed Fall Risk: 06/04/23 Dental Screening Dental Screen Date: 06/04/23 Did you have a dental visit in the last 12 months?: Yes Did you have a dental problem in the last 6 months where you did not have access to dental care?: No Was dental information given to patient?: Patient has dentist HPI Follow Up Gerd/ HTN HPI Details 87-year-old female with hypertension, hy percholesterolemia GERD generalized anxiety disorder last seen in September 2022 for preop for eye surgery. Patient is here for follow-up. Patient follows up with urology with overactive bladder on oxybutynin 5 mg once a day on Estrace for recurrent UTI. Increase dose of oxybutynin given 10 mg once a day. Patient also follows up with ormike morgan left knee injury with compartment osteoarthritis. steroid shot L knee. cannot tolerate the oxybutinin 10 mg - so decreased to 5 mg PFSH Medical History Basal cell carcinoma Esophageal stricture GERD (gastroesophageal reflux disease) Hypercholesterolemia Hypertension Macular degeneration Osteoarthritis Osteoporosis Thyroid nodule Surgical History S/P thyroid biopsy History of bilateral cataract extraction History of total abdominal hysterectomy and bilateral salpingo-oophorectomy History of appendectomy History of right hip replacement History of left hip replacement Family History Father Hemorrhage Mother Colitis Brother Multiple myeloma Sister Lymphoma Son In good health Daughter In good health Daughter In good health Social History Housing: House Alcohol intake: never Patient Tobacco Use Status: Never used Tobacco e-Cigarette/Vaping Use: Currently Using Second Hand Smoke Exposure: No service: No Current occupational status: retired Cognitive needs: Yes (cane) Hearing needs: No Vision needs: Yes Questionnaire PHQ-9 Over the last 2 weeks, how often have you been bothered by any of the following problems? 1. Little interest or pleasure in doing things: not at all 2. Feeling down, depressed, or hopeless: not at all 3. Trouble falling or staying asleep, or sleeping too much: not at all 4. Feeling tired or having little energy: not at all 5. Poor appetite or overeating: not at all 6. Feeling bad about yourself - or that you are a failure or have let yourself or your family down: not at all 7. Trouble concentrating on things, such as reading the newspaper or watching television: not at all 8. Moving or speaking so slowly that other people could have noticed. Or the opposite - being so fidgety or restless that you have been moving around a lot more than usual: not at all 9. Thoughts that you would be better off or of hurting yourself in some way: not at all Total score: 0 Depression Screening Interpretation: Negative Depression Screening Done: Yes 20074 - PHQ-9 Billing: Yes Source: Developed by Drs. Michael Lindsay, Nichole Santos, Riki Jacobo and colleagues, with an educational caitie from [employer]. Thrive Questionnaire Date Thrive assessed: 06/04/23 I am a: Patient What is your living situation today?: I have a steady place to live Within the past 12 months, did the food you bought not last and you didn't have the money to get more?: Never true Within the past 12 months, did you worry whether your food would run out before you got money to buy more?: Never true Do you have trouble paying for medicines?: No Do you have trouble getting transportation to medical appointments?: No Do you have trouble paying your heating and electricity bill?: No Do you have trouble taking care of your child, family member or friend?: No Do you have trouble with day-to-day activities such as bathing, preparing meals, shopping, managing finances, etc.?: No Are you currently unemployed and looking for a job?: No Are you interested in more education?: No Please select the resources that you would like help with: None Currently or been in a relationship where the following occur: no concerns reported THRIVE Score: 0 DANNA-7 AMB Questionnaire DANNA-7 Date DANNA - 7 assessed: 04/20/22 Source: Developed by Drs. Michael Lindsay, Nichole Santos, Riki Jacobo and colleagues, with an educational caitie from [employer]. Physical exam (Primary Care) Vital Signs: Last Vital Signs Pulse 90 06/04/23 17:16 BP 130/70 06/04/23 17:16 Pulse Ox 98 06/04/23 17:16 Oxygen Delivery Method Room Air 06/04/23 17:16 BMI result Body Mass Index 29.3 Tobacco/Smoking Status: Tobacco use Status Tobacco use date assessed 06/04/23 06/04/23 17:22 Patient Tobacco Use Status Never used Tobacco 06/04/23 17:18 e-Cigarette/Vaping Use Currently Using 06/04/23 17:18 PHQ-9: PHQ-9 Score PHQ-9: Total score 0 06/04/23 17:22 Depression Screening Interpretation: Negative Thrive Assessment: Date of Thrive Assessment Date Thrive assessed 06/04/23 06/04/23 17:22 Currently or been in a relationship where the following occur: no concerns reported Const General: alert; No acute distress Eyes Conjunctivae: conjunctivae normal Resp Auscultation: clear to auscultation bilaterally Cardio Rate: regular rate Rhythm: regular rhythm GI Inspection: Yes normal to inspection Extrem General: Yes normal to inspection and No edema Assessment and Plan Assessment & Plan (1) Hypertension: Code(s): I10 - Essential (primary) hypertension Qualifiers: Hypertension type: essential hypertension Qualified Code(s): I10 - Essential (primary) hypertension Plan: Continue with blood pressure medication. Decrease salt intake and exercise patient on hydrochlorothiazide 25 mg once a day (2) Hypercholesterolemia: Code(s): E78.00 - Pure hypercholesterolemia, unspecified Plan: Avoid fried foods, chicken skin, eggs, butter margarine, pastries and meat. Be it pork or beef they have a lot of cholesterol LDL goal of less than 130 and triglyceride of less than 150 patient on atorvastatin 10 mg once a day (3) GERD (gastroesophageal reflux disease): Code(s): K21.9 - Gastro-esophageal reflux disease without esophagitis Qualifiers: Esophagitis presence: without esophagitis Qualified Code(s): K21.9 - Gastro-esophageal reflux disease without esophagitis Plan: Avoid the foods that causes that usually spicy foods, tomato products, juices, coffee, soda and foods that your sensitive to. After eating do not lie down, allow 3-4 hours before in lie down. And keep the head of bed above 30 degrees to avoid the acid from going up. (4) Generalized anxiety disorder: Code(s): F41.1 - Generalized anxiety disorder Plan: Continue with present medication Orders: Orders Complete Blood Count Auto Diff Today I10 - Essential (primary) hypertension Free T4 (Free Thyroxine) Today I10 - Essential (primary) hypertension Thyroid Stimulating Hormone Today I10 - Essential (primary) hypertension Lipid Panel Today E78.00 - Pure hypercholesterolemia, unspecified, I10 - Essential (primary) hypertension Vitamin D 25-OH Total Today I10 - Essential (primary) hypertension Comprehensive Met. Panel Today I10 - Essential (primary) hypertension Vitamin B12 and Folate Today I10 - Essential (primary) hypertension Coding Level of Care Code Est Pt Level 4 (76420) Diagnoses Essential hypertension I10 Hypertension type: essential hypertension Hypercholesterolemia E78.00 Gastroesophageal reflux disease without esophagitis K21.9 Esophagitis presence: without esophagitis Generalized anxiety disorder F41.1
[2023-06-04 17:16] VITALS: BP 130/70; PULSE 90; O2SAT 98; BMI 29.3
== END 2023-06-04 18:11 | disposition home or self-care (01) ==
PROVIDERS: PCP Internal Medicine; Visit Provider Internal Medicine
DX: I10 Essential (primary) hypertension (principal); E78.00 Pure hypercholesterolemia, unspecified; K21.9 Gastro-esophageal reflux disease without esophagitis; F41.1 Generalized anxiety disorder
CPT/HCPCS: 99214

== ENCOUNTER 2023-06-25 08:40 | Outpatient (REF) | payer MEDICARE, SELFPAY ==
[2023-06-25 08:54] LABS: MANUAL DIFF FLAG NO
[2023-06-25 09:20] LABS: Basophils Absolute Auto 0.1 X10*3/uL (0.0-0.2); Basophils Percent Auto 0.5 % (0-2); Eosinophils Absolute Auto 0.1 X10*3/uL (0.0-0.4); Eosinophils Percent Auto 0.5 % (0-4); Hematocrit 35.7 % (37.0-47.0); Hemoglobin 12.1 g/dl (12.0-16.0); Imm Gran Abs Auto 0.05 X10*3/uL (0.00-0.03); Imm Gran Pct Auto 0.5 % (0.0-0.4); Lymphocytes Percent Auto 9.3 % (20-40); Mean Corpuscular HGB Conc 33.9 g/dl (31.0-35.0); Mean Corpuscular Hemoglobin 27.9 pg (27.0-33.0); Mean Corpuscular Volume 82.4 fL (80.0-98.0); Mean Platelet Volume 10.4 fL (9.4-12.3); Monocytes Absolute Auto 0.5 X10*3/uL (0.1-1.2); Neutrophils Percent Auto 84.2 % (45-73); Platelet Count 323 X10*3/uL (160-400); Red Blood Count 4.33 X10*6/uL (4.20-5.50); Red Cell Distribution Width 14.2 % (11.0-16.0); White Blood Count 10.7 X10*3/uL (4.8-10.8)
[2023-06-25 09:49] LABS: Alanine Aminotransferase 16 U/L (0-31); Albumin Level 4.4 g/dL (3.5-5.0); Alkaline Phosphatase 86 U/L (39-117); Anion Gap 11 (12-20); Aspartate Amino Transferase 18 U/L (5-31); Bilirubin Total 1.2 mg/dL (0.0-1.0); Blood Urea Nitrogen 15 mg/dL (9-16); Calcium 9.5 mg/dL (8.4-10.2); Carbon Dioxide 32 mmol/L (22-29); Chloride 93 mmol/L (96-108); Cholesterol 128 mg/dL (<200); Estimated Glomerular Filt Rate > 60; Glucose Random 99 mg/dL (60-115); HDL Cholesterol 50 mg/dL (>40); LDL Cholesterol Calculated 56 mg/dL (<100); Potassium 3.6 mmol/L (3.3-5.1); Sodium 132 mmol/L (135-145); Triglycerides 111 mg/dL (<150)
[2023-06-25 10:07] LABS: Thyroid Stimulating Hormone 1.45 uIU/mL (0.32-4.0); Vitamin D 25-OH Total 88.2 ng/mL (>30)
[2023-06-25 11:18] LABS: Folate 13.7 ng/mL (> or = 4.0); Vitamin B12 1638 pg/mL (200-900)
== END 2023-06-25 08:41 | disposition home or self-care (01) ==
LOC: HO.LAB 08:40
PROVIDERS: PCP Internal Medicine; Visit Provider Internal Medicine
DX: E78.00 Pure hypercholesterolemia, unspecified (principal); I10 Essential (primary) hypertension
CPT/HCPCS: 36415; 80053; 80061; 82306; 82607; 82746; 84439; 84443; 85025

== ENCOUNTER 2023-12-04 13:31 | Outpatient (AMB) | payer MEDICARE, SELFPAY ==
--- NOTE | 2023-12-04 13:36 | MHC.PC.OV ---
Vital Signs 12/04/23 13:38 Height 5 ft 1 in Weight 153 lb BMI 28.9 BP 138/72 Blood Pressure Location Lt brachial Position Sitting Pulse 83 Pulse Source Pulse Oximeter Pulse Oximetry (%) 98 Oxygen Delivery Method Room Air Intake Visit Reasons: DANNA Allergies lisinopril [LISINOPRIL] Allergy (Mild, Verified 12/04/23 13:39) COUGH, shortness of breath Tobacco use date assessed: 06/04/23 Fall risk assessment: No Falls in past year Last assessed Fall Risk: 12/04/23 Dental Screening Dental Screen Date: 06/04/23 HPI DANNA HPI Details 88-year-old overweight female with hypertension hypercholesterolemia GERD and generalized anxiety disorder last seen in June 2023. Patient follows up with Ophthalmology Dr. Tomy Howe seen in September 12. cough for a long time advised to take allergy med for 2 weeks and will evaluate [facility] Medical History (Updated 12/04/23 @ 18:55 by Tor Rayo MD) Ingrown toenail Vision abnormalities Dysuria Cataract Hip pain, left Preop exam for internal medicine Esophageal stricture Basal cell carcinoma Macular degeneration Osteoarthritis GERD (gastroesophageal reflux disease) Thyroid nodule Osteoporosis Hypercholesterolemia Hypertension Surgical History (Updated 12/04/23 @ 13:50 by Tor Rayo MD) Status post closed reduction of dislocated total hip prosthesis S/P thyroid biopsy History of bilateral cataract extraction History of total abdominal hysterectomy and bilateral salpingo-oophorectomy History of appendectomy History of right hip replacement History of left hip replacement Family History Father Hemorrhage Mother Colitis Brother Multiple myeloma Sister Lymphoma Son In good health Daughter In good health Daughter In good health Social History Housing: House Alcohol intake: never Patient Tobacco Use Status: Never used Tobacco e-Cigarette/Vaping Use: Currently Using Second Hand Smoke Exposure: No service: No Current occupational status: retired Cognitive needs: Yes (cane) Hearing needs: No Vision needs: Yes Questionnaire PHQ-9 Over the last 2 weeks, how often have you been bothered by any of the following problems? 1. Little interest or pleasure in doing things: not at all 2. Feeling down, depressed, or hopeless: not at all 3. Trouble falling or staying asleep, or sleeping too much: not at all 4. Feeling tired or having little energy: not at all 5. Poor appetite or overeating: not at all 6. Feeling bad about yourself - or that you are a failure or have let yourself or your family down: not at all 7. Trouble concentrating on things, such as reading the newspaper or watching television: not at all 8. Moving or speaking so slowly that other people could have noticed. Or the opposite - being so fidgety or restless that you have been moving around a lot more than usual: not at all 9. Thoughts that you would be better off or of hurting yourself in some way: not at all Total score: 0 Depression Screening Interpretation: Negative Depression Screening Done: Yes 05590 - PHQ-9 Billing: Yes Source: Developed by Drs. Michael Lindsay, Nichole Santos, Riki Jacobo and colleagues, with an educational caitie from [employer]. Thrive Questionnaire Date Thrive assessed: 06/04/23 I am a: Patient Are you currently unemployed and looking for a job?: No AUDIT C Alcohol Use Questionnaire (AUDIT-C) 1. How often do you have a drink containing alcohol?: Monthly or less 2. How many drinks containing alcohol do you have on a typical day when you are drinking?: 1 or 2 3. How often do you have six or more drinks on one occasion?: Never Total Score: 1 DANNA-7 AMB Questionnaire DANNA-7 Date DANNA - 7 assessed: 12/04/23 Feeling nervous, anxious, or on edge: 0 = Not at all Not being able to stop or control worryin = Not at all Worrying too much about different things: 0 = Not at all Trouble relaxin = Not at all Being so restless that it is hard to sit still: 0 = Not at all Becoming easily annoyed or irritable: 0 = Not at all Feeling afraid as if something awful might happen: 0 = Not at all Total DANNA-7 score (0-4 normal; 5-9 mild; 10-14 moderate; 15-21 severe): 0 Source: Developed by Drs. Michael Lindsay, Nichole Santos, Riki Jacobo and colleagues, with an educational caitie from [employer]. DANNA-7 Assessment Billing DANNA-7 Assessment Tool: DANNA-7 Assessment 91186 Physical exam (Primary Care) Vital Signs: Last Vital Signs Pulse 83 12/04/23 13:38 BP 138/72 12/04/23 13:38 Pulse Ox 98 12/04/23 13:38 Oxygen Delivery Method Room Air 12/04/23 13:38 BMI result Body Mass Index 28.9 Tobacco/Smoking Status: Tobacco use Status Tobacco use date assessed 06/04/23 12/04/23 13:44 Patient Tobacco Use Status Never used Tobacco 12/04/23 13:44 e-Cigarette/Vaping Use Currently Using 12/04/23 13:44 PHQ-9: PHQ-9 Score PHQ-9: Total score 0 12/04/23 13:51 Depression Screening Interpretation: Negative Thrive Assessment: Date of Thrive Assessment Date Thrive assessed 06/04/23 12/04/23 13:44 Const General: alert; No acute distress Eyes Conjunctivae: conjunctivae normal Resp Auscultation: clear to auscultation bilaterally Cardio Rate: regular rate Rhythm: regular rhythm GI Inspection: Yes normal to inspection Extrem General: Yes normal to inspection and No edema Coding Level of Care Code Est Pt Level 4 (48955) Diagnoses Gastroesophageal reflux disease without esophagitis K21.9 Esophagitis presence: without esophagitis Hypercholesterolemia E78.00 Essential hypertension I10 Hypertension type: essential hypertension Age-related osteoporosis without current pathological fracture M81.0 Osteoporosis type: age-related Presence of current pathological fracture: without current pathological fracture Chronic cough R05.3 Cough type: chronic Nonrheumatic aortic valve stenosis I35.0 Cardiac valve disease etiology: nonrheumatic Additional Codes DANNA-7 Assessment Billing - DANNA-7 Assessment Tool: DANNA-7 Assessment [id number] ([id number]) Assessment & Plan Assessment & Plan (1) GERD (gastroesophageal reflux disease): Code(s): K21.9 - Gastro-esophageal reflux disease without esophagitis Category: Medical Qualifiers: Esophagitis presence: without esophagitis Qualified Code(s): K21.9 - Gastro-esophageal reflux disease without esophagitis Plan: Avoid the foods that causes that usually spicy foods, tomato products, juices, coffee, soda and foods that your sensitive to. After eating do not lie down, allow 3-4 hours before in lie down. And keep the head of bed above 30 degrees to avoid the acid from going up. (2) Hypercholesterolemia: Code(s): E78.00 - Pure hypercholesterolemia, unspecified Category: Medical Plan: Avoid fried foods, chicken skin, eggs, butter margarine, pastries and meat. Be it pork or beef they have a lot of cholesterol LDL goal of less than 130 and triglyceride of less than 150 on atorvastatin 10 mg once a day June 2023 last blood work (3) Hypertension: Code(s): I10 - Essential (primary) hypertension Category: Medical Qualifiers: Hypertension type: essential hypertension Qualified Code(s): I10 - Essential (primary) hypertension Plan: Continue with blood pressure medication. Decrease salt intake and exercise patient is on hydrochlorothiazide 25 mg once a day. Concern about hyponatremia (4) Osteoporosis: Comment: November 2016, April 2019, 2021 Code(s): M81.0 - Age-related osteoporosis without current pathological fracture Category: Medical Qualifiers: Osteoporosis type: age-related Presence of current pathological fracture: without current pathological fracture Qualified Code(s): M81.0 - Age-related osteoporosis without current pathological fracture Plan: Continue with raloxifene and bone density is due (5) Cough: Code(s): R05.9 - Cough, unspecified Category: Medical Qualifiers: Cough type: chronic Qualified Code(s): R05.3 - Chronic cough Plan: Discussed about workup and advised to give a trial of allergy medication. Chest x-ray requested (6) Aortic stenosis: Comment: 2021 1.5 cm Code(s): I35.0 - Nonrheumatic aortic (valve) stenosis Category: Medical Qualifiers: Cardiac valve disease etiology: nonrheumatic Qualified Code(s): I35.0 - Nonrheumatic aortic (valve) stenosis Plan: Will continue to monitor Orders: Orders XR DEXA axial skeleton Today M81.0 - Age-related osteoporosis without current pathological fracture Free T4 (Free Thyroxine) Today E78.00 - Pure hypercholesterolemia, unspecified Thyroid Stimulating Hormone Today E78.00 - Pure hypercholesterolemia, unspecified Vitamin D 25-OH Total Today E78.00 - Pure hypercholesterolemia, unspecified Magnesium Today E78.00 - Pure hypercholesterolemia, unspecified XR chest 2V Today R05.9 - Cough, unspecified CA echo transthoracic complete Today I35.0 - Nonrheumatic aortic (valve) stenosis, R05.9 - Cough, unspecified Complete Blood Count Auto Diff Today E78.00 - Pure hypercholesterolemia, unspecified Comprehensive Met. Panel Today E78.00 - Pure hypercholesterolemia, unspecified Lipid Panel Today E78.00 - Pure hypercholesterolemia, unspecified Vitamin B12 and Folate Today E78.00 - Pure hypercholesterolemia, unspecified B Type Natriuretic Peptide Today R05.9 - Cough, unspecified
[2023-12-04 13:38] VITALS: BP 138/72; PULSE 83; O2SAT 98; BMI 28.9
== END 2023-12-04 14:13 | disposition home or self-care (01) ==
PROVIDERS: PCP Internal Medicine; Visit Provider Internal Medicine
DX: K21.9 Gastro-esophageal reflux disease without esophagitis (principal); E78.00 Pure hypercholesterolemia, unspecified; I10 Essential (primary) hypertension; M81.0 Age-related osteoporosis without current pathological fracture; R05.3 Chronic cough; I35.0 Nonrheumatic aortic (valve) stenosis

== ENCOUNTER → 2023-12-04 13:31 | Outpatient (BNVA) | payer MEDICARE, SELFPAY | PROVIDERS: PCP Internal Medicine; Visit Provider Internal Medicine | DX: I35.0 Nonrheumatic aortic (valve) stenosis (principal); E78.00 Pure hypercholesterolemia, unspecified; R05.9 Cough, unspecified; I10 Essential (primary) hypertension; M81.0 Age-related osteoporosis without current pathological fracture; K21.9 Gastro-esophageal reflux disease without esophagitis | CPT/HCPCS: 96127; 99212 ==

== ENCOUNTER 2023-12-08 10:14 | Outpatient (REF) | payer MEDICARE, SELFPAY ==
--- NOTE | ~2023-12-08 | XR_ITS ---
EXAMINATION: XR CHEST 2 VIEWS CLINICAL INFORMATION: Cough, unspecified R05.9. COMPARISON: XR Chest 07/08/2015 TECHNIQUE: 2 views of the chest were obtained. FINDINGS: Slight interstitial prominence which may reflect infectious/inflammatory etiology. Elevation right hemidiaphragm. No pneumothorax. Trachea is midline. Cardiac mediastinal silhouette is not enlarged. Aorta demonstrates atherosclerotic calcifications. No large pleural effusion. Osseous structures are intact. Soft tissues are unremarkable. XR/XR chest 2V IMPRESSION: 1. Slight interstitial prominence which may reflect infectious/inflammatory etiology. 2. Elevation right hemidiaphragm. Electronically signed by: Wyatt Broussard MD 02/19/2024 01:34 PM EST
== END 2023-12-08 10:15 | disposition home or self-care (01) ==
LOC: HO.XRAY 10:14
PROVIDERS: PCP Internal Medicine; Visit Provider Internal Medicine
DX: R05.9 Cough, unspecified (principal)
CPT/HCPCS: 71046

== ENCOUNTER 2023-12-15 10:05 | Outpatient (REF) | payer MEDICARE, SELFPAY ==
[2023-12-15 10:29] LABS: MANUAL DIFF FLAG NO
[2023-12-15 11:00] LABS: Basophils Absolute Auto 0.1 X10*3/uL (0.0-0.2); Basophils Percent Auto 0.8 % (0-2); Eosinophils Absolute Auto 0.1 X10*3/uL (0.0-0.4); Eosinophils Percent Auto 0.8 % (0-4); Hematocrit 35.6 % (37.0-47.0); Hemoglobin 12.2 g/dl (12.0-16.0); Imm Gran Abs Auto 0.02 X10*3/uL (0.00-0.03); Imm Gran Pct Auto 0.3 % (0.0-0.4); Lymphocytes Absolute Auto 1.1 X10*3/uL (1.2-4.9); Mean Corpuscular HGB Conc 34.3 g/dl (31.0-35.0); Mean Corpuscular Hemoglobin 29.1 pg (27.0-33.0); Mean Platelet Volume 10.4 fL (9.4-12.3); Monocytes Absolute Auto 0.5 X10*3/uL (0.1-1.2); Monocytes Percent Auto 7.3 % (2-11); Neutrophils Absolute Auto 4.6 x10*3/uL (2.0-8.3); Neutrophils Percent Auto 73.8 % (45-73); Platelet Count 333 X10*3/uL (160-400); Red Blood Count 4.19 X10*6/uL (4.20-5.50); White Blood Count 6.2 X10*3/uL (4.8-10.8)
[2023-12-15 11:24] LABS: B Type Natriuretic Peptide 46 pg/mL (<100)
[2023-12-15 11:55] LABS: Alanine Aminotransferase 18 U/L (0-31); Albumin Level 4.5 g/dL (3.5-5.0); Alkaline Phosphatase 77 U/L (39-117); Anion Gap 13 (12-20); Aspartate Amino Transferase 18 U/L (5-31); Bilirubin Total 1.3 mg/dL (0.0-1.0); Blood Urea Nitrogen 13 mg/dL (9-16); Calcium 10.2 mg/dL (8.4-10.2); Carbon Dioxide 30 mmol/L (22-29); Chloride 96 mmol/L (96-108); Cholesterol 141 mg/dL (<200); Estimated Glomerular Filt Rate > 60; Glucose Random 97 mg/dL (60-115); HDL Cholesterol 56 mg/dL (>40); LDL Cholesterol Calculated 66 mg/dL (<100); Magnesium 2.1 mg/dL (1.6-2.6); Potassium 3.4 mmol/L (3.3-5.1); Sodium 136 mmol/L (135-145); Total Protein 6.9 g/dL (6.5-8.0); Triglycerides 97 mg/dL (<150)
[2023-12-15 12:11] LABS: Free T4 (Free Thyroxine) 1.07 ng/dL (0.71-1.85); Thyroid Stimulating Hormone 1.88 uIU/mL (0.32-4.0); Vitamin D 25-OH Total 105.1 ng/mL (>30)
[2023-12-15 12:12] LABS: Folate 14.8 ng/mL (> or = 4.0); Vitamin B12 1400 pg/mL (200-900)
== END 2023-12-15 10:06 | disposition home or self-care (01) ==
LOC: HO.LAB 10:05
PROVIDERS: PCP Internal Medicine; Visit Provider Internal Medicine
DX: R05.9 Cough, unspecified (principal); E78.00 Pure hypercholesterolemia, unspecified
CPT/HCPCS: 36415; 80053; 80061; 82306; 82607; 82746; 83735; 83880; 84439; 84443; 85025

== ENCOUNTER → 2023-12-26 14:51 | Outpatient (REF) | payer MEDICARE, SELFPAY ==
--- NOTE | 2023-12-26 14:54 | CA_ITS ---
Transthoracic Echocardiogram Patient (Last, First, Middle): Kim Herbert C Gender: Female Date of : 1935 Age: 88 Procedure Date: 12/26/2023 Procedure Type: Transthoracic Echocardiogram Location: OP Height: 162.56 cm Weight: 69.4 kg BSA: 1.75 m2 Heart Rate: bpm BP: 130 / 78 mmHg Project Estimator: KRISTEL Referring MD: Tor Rayo MD Symptoms: R05.9 - Cough, unspecified Study Quality: Adequate ECG Rhythm: Sinus Conclusions: - The left ventricular systolic function is normal. The calculated ejection fraction is 64% by biplane method. - There is moderate to severe aortic valve stenosis. - There is moderate posterior mitral annular calcification. Findings Left Ventricle Normal left ventricular cavity size. The left ventricular systolic function is normal. The calculated ejection fraction is 64% by biplane method. There is no evidence of regional wall motion abnormalities. Evidence suggests grade I (mild) diastolic dysfunction. There is mild septal asymmetric hypertrophy. Right Ventricle Normal right ventricular cavity size and systolic function. Atria The left atrium is mildly dilated. The right atrium is normal in size. Aortic Valve There is moderate calcification of the aortic valve. There is moderate to severe aortic valve stenosis. The peak aortic velocity is 3.54 m/s with a calculated peak gradient of 50 mmHg. The mean gradient is 29 mmHg. The aortic valve area is 0.72 cm2. There is trace (trivial) aortic valve regurgitation. Dimensionless index 0.31. Stroke volume index 32ml/m2. Mitral Valve There is moderate posterior mitral annular calcification. There is mild mitral valve regurgitation. There is no mitral valve stenosis. Pulmonic Valve The pulmonic valve is likely normal. Tricuspid Valve There is trace tricuspid valve regurgitation. There is no evidence of pulmonary hypertension. Great Vessels The asc aorta is normal in size. Venous The inferior vena cava is normal in size and collapses greater than 50% with inspiration. Pericardium/Pleural There is no evidence of pericardial effusion. Prior Study Comparison Changes noted compared to prior study dated: 09/20/2021. Progression of aortic stenosis. Measurements 2D Linear Measurements IVSd: 1.19 0.6-0.9/0.6-1.0 cm LVIDd: 3.54 3.9-5.3/4.2-5.9 cm LVIDd Index: 2.02 2.4-3.2/2.2-3.1 cm/m2 LVIDs: 2.29 2.0-3.6 cm LVPWd: 0.94 0.7-1.1 cm LA Diam: 4.00 2.7-3.8/3.0-4.0 cm LAIDs Index: 2.29 1.5-2.3 cm/m2 LV Mass: 143.64 67-162/88-224 g LV Mass Index: 82.08 43-95/49-115 g/m2 LVOT Diam: 1.80 3.0+(-)1.3 cm 2D Systolic Function EF 4C: 67.10 >55% EF 2C: 63.10 >55% EF BiP: 63.50 >55% Mitral Valve MV Pk E: 0.94 MV PK A: 1.29 MV Decel Time: 218.00 E/A: 0.70 E'Lateral: 4.79 E'Medial: 4.03 E/E' Med: 23.20 E/E' Lat: 19.50 PHT: 64.00 MVA PHT: 3.44 Decel [place]: 4.30 MR Vol - PW Dopp: 11.52 MR VTI: 1.92 MR ERO: 6.00 MR Alias Mat: 0.37 MR RAD: 0.40 Aortic Valve AoV Pk Mat: 3.54 AoV Mn Mat: 2.55 AoV VTI: 0.78 AoV Pk Grad: 50.00 Aov Mn Grad: 29.00 GIULIA Cont.VTI: 0.72 LVOT LVOT Pk Mat: 1.09 LVOT Mn Mat: 0.74 LVOT VTI: 0.22 LVOT Pk Grad: 5.00 LVOT Mn Grad: 2.00 LVOT Diam: 1.80 LVOT Area: 2.54 Diastolic Function MV Pk E: 0.94 MV Pk A: 1.29 E/A: 0.70 E'Medial: 4.03 E/E' Med: 23.20 E' Laterial: 4.79 E/E' Lat: 19.50 Right Ventricle TAPSE (mm): 21.90 TVS' Mat: 11.20 Tricuspid Valve TR Pk Mat: 2.38 TR Pk Grad: 23.00 RA Press: 3.00 RVSP: 26.00 Great Vessels Aorta Sinus of Valsalva: 3.50 2.0-3.5 cm Ao Asc: 3.70 2.1-3.4 cm Updated in Other Vendor System with Status of Final Aguilar Mcelroy MD electronically signed on 12/26/2023 4:13:56 PM with status of Final
== END ==
LOC: HO.CARD 14:51
PROVIDERS: PCP Internal Medicine; Visit Provider Internal Medicine
DX: R05.9 Cough, unspecified (principal); I35.0 Nonrheumatic aortic (valve) stenosis
CPT/HCPCS: 90471; 90656; 93306

== ENCOUNTER → 2023-12-26 14:54 | Outpatient (BNV) | payer MEDICARE, SELFPAY | PROVIDERS: PCP Internal Medicine; Visit Provider Internal Medicine | DX: I35.2 Nonrheumatic aortic (valve) stenosis with insufficiency (principal); I34.0 Nonrheumatic mitral (valve) insufficiency; I35.8 Other nonrheumatic aortic valve disorders; I34.81 Nonrheumatic mitral (valve) annulus calcification | CPT/HCPCS: 93306 ==

== ENCOUNTER 2023-12-26 16:01 | Outpatient (AMB) | payer MEDICARE, SELFPAY ==
--- NOTE | 2023-12-26 16:03 | AM.OFFVISNUR ---
Intake Visit Reasons: Flu shot Allergies lisinopril [LISINOPRIL] Allergy (Mild, Verified 12/04/23 13:39) COUGH, shortness of breath Office Procedures Flu Questionnaire Does the patient have a severe egg allergy?: No Does the patient have severe life threatening allergies?: No Does the patient have a fever or illness today?: No Has the patient ever had Guillain-Aneta Syndrome?: No Has the patient ever had any past reaction to a flu shot?: No Assessment & Plan Assessment & Plan Orders: Orders Influenza [id number] Immunization Today Z23 - Encounter for immunization Medications: New Fluarix Triv [id number] (PF) (flu vacc [id number] 6mos up(PF)) 0.5 mL IM ONCE 0.5 mL 0RF NS Z23 - Encounter for immunization
== END 2023-12-26 16:13 | disposition home or self-care (01) ==
PROVIDERS: PCP Internal Medicine; Visit Provider Internal Medicine
DX: Z23 Encounter for immunization (principal)

== ENCOUNTER 2024-03-27 09:50 | Outpatient (AMB) | payer MEDICARE, SELFPAY ==
[2024-03-27 10:04] VITALS: BP 136/72; PULSE 94; O2SAT 98; BMI 29.3
--- NOTE | 2024-03-27 10:04 | MHC.PC.OV ---
Vital Signs 03/27/24 10:04 Height 5 ft 1 in Weight 155 lb BMI 29.3 BP 136/72 Blood Pressure Location Lt brachial Position Sitting Pulse 94 Pulse Source Pulse Oximeter Pulse Oximetry (%) 98 Oxygen Delivery Method Room Air Intake Visit Reasons: cough, osteoporosis Allergies lisinopril [LISINOPRIL] Allergy (Mild, Verified 03/27/24 10:04) COUGH, shortness of breath Tobacco use date assessed: 06/04/23 Fall risk assessment: No Falls in past year Last assessed Fall Risk: 03/27/24 Dental Screening Dental Screen Date: 03/27/24 Did you have a dental visit in the last 12 months?: Yes Did you have a dental problem in the last 6 months where you did not have access to dental care?: No Was dental information given to patient?: Patient has dentist HPI cough, osteoporosis HPI Details The patient is an 88-year-old female presenting with a history of aortic stenosis and for a follow-up evaluation. She has been managed conservatively for aortic stenosis, noted during her last evaluation in December to have a valve opening measurement of 0.72 cm? indicating significant tightness. She remains asymptomatic but has had routine cardiology follow-ups, the last of which was with Dr. Donnelly. An agreement has been made to re-evaluate her condition with an echocardiogram in four months. Her cardiac condition is monitored alongside her anxiety disorder, which is currently managed with as-needed medications. Her GERD is treated with omeprazole, and her osteopenia is under surveillance with routine bone density studies, her last being in November 2021. An upcoming bone density scan is scheduled to assess her current bone health status. She has had a history of elevated Vitamin B12, reaching levels above 1400 pg/mL noted from previous lab work; however, no supplemental B12 is currently given. Her Vitamin D levels are elevated in prior evaluations, but no adjustments have been made at present due to seasonal exposure variations. She maintains a hydration regimen mindful of her low-normal sodium and takes potassium-rich foods to balance effects from hydrochlorothiazide therapy. [facility] Medical History (Updated 03/27/24 @ 10:38 by Tor Rayo MD) Anemia Ingrown toenail Vision abnormalities Dysuria Cataract Hip pain, left Preop exam for internal medicine Esophageal stricture Basal cell carcinoma Macular degeneration Osteoarthritis GERD (gastroesophageal reflux disease) Thyroid nodule Osteoporosis Hypercholesterolemia Hypertension Surgical History (Updated 12/04/23 @ 13:50 by Tor Rayo MD) Status post closed reduction of dislocated total hip prosthesis S/P thyroid biopsy History of bilateral cataract extraction History of total abdominal hysterectomy and bilateral salpingo-oophorectomy History of appendectomy History of right hip replacement History of left hip replacement Family History Father Hemorrhage Mother Colitis Brother Multiple myeloma Sister Lymphoma Son In good health Daughter In good health Daughter In good health Social History Housing: House Alcohol intake: never Patient Tobacco Use Status: Never used Tobacco Tobacco use type: Cigarette e-Cigarette/Vaping Use: Currently Using Second Hand Smoke Exposure: No service: No Current occupational status: retired Cognitive needs: Yes (cane) Hearing needs: No Vision needs: Yes Questionnaire PHQ-9 Over the last 2 weeks, how often have you been bothered by any of the following problems? 1. Little interest or pleasure in doing things: not at all 2. Feeling down, depressed, or hopeless: not at all 3. Trouble falling or staying asleep, or sleeping too much: not at all 4. Feeling tired or having little energy: not at all 5. Poor appetite or overeating: not at all 6. Feeling bad about yourself - or that you are a failure or have let yourself or your family down: not at all 7. Trouble concentrating on things, such as reading the newspaper or watching television: not at all 8. Moving or speaking so slowly that other people could have noticed. Or the opposite - being so fidgety or restless that you have been moving around a lot more than usual: not at all 9. Thoughts that you would be better off or of hurting yourself in some way: not at all Total score: 0 Depression Screening Interpretation: Negative Depression Screening Done: Yes 03742 - PHQ-9 Billing: Yes Source: Developed by Drs. Michael Lindsay, Nichole Santos, Riki Jacobo and colleagues, with an educational caitie from [employer]. Thrive Questionnaire Date Thrive assessed: 03/27/24 I am a: Patient What is your living situation today?: I have a steady place to live Within the past 12 months, did the food you bought not last and you didn't have the money to get more?: Never true Within the past 12 months, did you worry whether your food would run out before you got money to buy more?: Never true Do you have trouble paying for medicines?: No Do you have trouble getting transportation to medical appointments?: No Do you have trouble paying your heating and electricity bill?: No Do you have trouble taking care of your child, family member or friend?: No Do you have trouble with day-to-day activities such as bathing, preparing meals, shopping, managing finances, etc.?: No Are you currently unemployed and looking for a job?: No Are you interested in more education?: No Currently or been in a relationship where the following occur: No concerns reported THRIVE Score: 0 AUDIT C Alcohol Use Questionnaire (AUDIT-C) 1. How often do you have a drink containing alcohol?: Monthly or less 2. How many drinks containing alcohol do you have on a typical day when you are drinking?: 1 or 2 3. How often do you have six or more drinks on one occasion?: Never Total Score: 1 DANNA-7 AMB Questionnaire DANNA-7 Date DANNA - 7 assessed: 03/27/24 Feeling nervous, anxious, or on edge: 0 = Not at all Not being able to stop or control worryin = Not at all Worrying too much about different things: 0 = Not at all Trouble relaxin = Not at all Being so restless that it is hard to sit still: 0 = Not at all Becoming easily annoyed or irritable: 0 = Not at all Feeling afraid as if something awful might happen: 0 = Not at all Total DANNA-7 score (0-4 normal; 5-9 mild; 10-14 moderate; 15-21 severe): 0 Source: Developed by Drs. Michael Lindsay, Nichole Santos, Riki Jacobo and colleagues, with an educational caitie from [employer]. DANNA-7 Assessment Billing DANNA-7 Assessment Tool: DANNA-7 Assessment 94757 Physical exam (Primary Care) Vital Signs: Last Vital Signs Pulse 94 03/27/24 10:04 BP 136/72 03/27/24 10:04 Pulse Ox 98 03/27/24 10:04 Oxygen Delivery Method Room Air 03/27/24 10:04 BMI result Body Mass Index 29.3 Tobacco/Smoking Status: Tobacco use Status Tobacco use date assessed 06/04/23 03/27/24 10:05 Patient Tobacco Use Status Never used Tobacco 03/27/24 10:05 Tobacco use type Cigarette 03/27/24 10:05 e-Cigarette/Vaping Use Currently Using 03/27/24 10:05 PHQ-9: PHQ-9 Score PHQ-9: Total score 0 03/27/24 10:39 Depression Screening Interpretation: Negative Thrive Assessment: Date of Thrive Assessment Date Thrive assessed 03/27/24 03/27/24 10:05 Currently or been in a relationship where the following occur: No concerns reported Const General: alert; No acute distress Eyes Conjunctivae: conjunctivae normal Resp Auscultation: clear to auscultation bilaterally Cardio Rate: regular rate Rhythm: regular rhythm GI Inspection: Yes normal to inspection Extrem General: Yes normal to inspection and No edema Coding Level of Care Code Est Pt Level 4 (21835) Diagnoses Nonrheumatic aortic valve stenosis I35.0 Cardiac valve disease etiology: nonrheumatic Generalized anxiety disorder F41.1 Gastroesophageal reflux disease without esophagitis K21.9 Esophagitis presence: without esophagitis Age-related osteoporosis without current pathological fracture M81.0 Osteoporosis type: age-related Presence of current pathological fracture: without current pathological fracture Essential hypertension I10 Hypertension type: essential hypertension Hypercholesterolemia E78.00 Additional Codes DANNA-7 Assessment Billing - DANNA-7 Assessment Tool: DANNA-7 Assessment 17063 ([id number]) PHQ-9 - 05203 - PHQ-9 Billing: Yes ([id number]) Assessment & Plan Assessment & Plan (1) Aortic stenosis: Comment: mild 2021 1.5 cm December 2023he left ventricular systolic function is normal. The calculated ejection fraction is 64% by biplane method. - There is moderate to severe aortic valve stenosis. 0.72 cm2 - There is moderate posterior mitral annular calcification. Code(s): I35.0 - Nonrheumatic aortic (valve) stenosis Category: Medical Qualifiers: Cardiac valve disease etiology: nonrheumatic Qualified Code(s): I35.0 - Nonrheumatic aortic (valve) stenosis (2) Generalized anxiety disorder: Code(s): F41.1 - Generalized anxiety disorder Category: Medical (3) GERD (gastroesophageal reflux disease): Code(s): K21.9 - Gastro-esophageal reflux disease without esophagitis Category: Medical Qualifiers: Esophagitis presence: without esophagitis Qualified Code(s): K21.9 - Gastro-esophageal reflux disease without esophagitis (4) Osteoporosis: Comment: November 2016, April 2019, 2021 Code(s): M81.0 - Age-related osteoporosis without current pathological fracture Category: Medical Qualifiers: Osteoporosis type: age-related Presence of current pathological fracture: without current pathological fracture Qualified Code(s): M81.0 - Age-related osteoporosis without current pathological fracture (5) Hypertension: Code(s): I10 - Essential (primary) hypertension Category: Medical Qualifiers: Hypertension type: essential hypertension Qualified Code(s): I10 - Essential (primary) hypertension (6) Hypercholesterolemia: Code(s): E78.00 - Pure hypercholesterolemia, unspecified Category: Medical Plan - To monitor aortic stenosis with planned follow-up echocardiogram in four months. - Continued referral and follow-up with cardiology for aortic valve assessment. - Ongoing management of anxiety with current medication regimen as needed. - Maintain GERD treatment with omeprazole daily. - Surveillance of osteopenia with the upcoming bone density scan. - Regular blood work to monitor Sodium and Potassium levels; dietary adjustments for potassium intake. - Advisement against supplementation due to consistently high levels. - Monitor Vitamin D; no additional supplementation required. - Counseling on preventive measures against seasonal illnesses and adherence to hygiene practices. - Regular vaccination updates and health maintenance, including flu and potential RSV vaccinations.
== END 2024-03-27 10:56 | disposition home or self-care (01) ==
PROVIDERS: PCP Internal Medicine; Visit Provider Internal Medicine
DX: I35.0 Nonrheumatic aortic (valve) stenosis (principal); F41.1 Generalized anxiety disorder; K21.9 Gastro-esophageal reflux disease without esophagitis; M81.0 Age-related osteoporosis without current pathological fracture; I10 Essential (primary) hypertension; E78.00 Pure hypercholesterolemia, unspecified

== ENCOUNTER → 2024-03-27 09:50 | Outpatient (BNVA) | payer MEDICARE, SELFPAY | PROVIDERS: PCP Internal Medicine; Visit Provider Internal Medicine | DX: I35.0 Nonrheumatic aortic (valve) stenosis (principal); F41.1 Generalized anxiety disorder; K21.9 Gastro-esophageal reflux disease without esophagitis; M81.0 Age-related osteoporosis without current pathological fracture; I10 Essential (primary) hypertension; E78.00 Pure hypercholesterolemia, unspecified | CPT/HCPCS: 96127; 99212 ==

== ENCOUNTER 2024-04-02 13:20 | Outpatient (REF) | payer MEDICARE, SELFPAY ==
--- NOTE | ~2024-04-02 | MM_ITS ---
EXAMINATION: DXA BONE DENSITY AXIAL HISTORY: Estrogen deficiency TECHNIQUE: [employer] Dual energy absorptiometry (DEXA) of the lumbar spine and distal forearm was performed. The hips were not evaluated due to a history of prior bilateral total hip arthroplasty. COMPARISON: Comparison is made with the prior examination dated 11/15/2021. FINDINGS: The bone mineral density of the lumbar spine is 0.930 with a T-score of -2.1, and a Z-score of -0.3. This represents a BMD change of -1.9% compared to the prior exam. This is not statistically significant. The bone mineral density of the distal forearm is 0.558 with a T-score of -3.6, and a Z-score of -0.2. This represents BMD change of -1.9% compared to the prior exam. MM/XR DEXA axial skeleton IMPRESSION: Based on bone mineral density, and according to World Health Organization (WHO) criteria, the diagnosis is consistent with osteoporosis. All bone density values are in grams per centimeter squared (g/cm2). Statistically, 68% of repeat scans fall within 1 SD (+/- 0.010 g/cm2 for AP spine L1-L4) and 1 SD (+/- 0.012 g/cm2 for femur total) FRAX is a trademark of the [employer] Metabolic [employer] Disease, a World Health Organization (WHO) Collaborating Center. Electronically signed by: Michael Jamison MD 04/07/2024 11:51 AM EST
--- OUTSIDE RECORDS SUMMARY | 2024-04-02 15:27 | XMS_ITS | Clinical Summary ---
Author Organization [facility] Address [address] [place] [address] Care Team Providers Care Automatic Stacker Name Role Phone Tor Rayo MD Primary Care Provider [phone] Allergies Active Allergy Reactions Criticality Noted Date Comments Lisinopril 07/01/2017 Medications Medication Sig Dispensed Refills Start Date End Date Status atorvastatin (LIPITOR) tablet 10 mg 0 05/14/2017 Active hydrochlorothiazide (HYDRODIURIL) tablet 25 mg 0 04/20/2017 Active raloxifene (EVISTA) tablet 60 mg TAKE 1 TABLET ONCE A DAY ORALLY 90 DAYS 3 04/29/2017 Active omeprazole (PRILOSEC) 20 MG capsule 0 04/09/2017 Active celecoxib (CELEBREX) 200 MG capsule 1 CAPSULE ONCE A DAY ORALLY 90 DAYS 3 06/18/2017 Active Active Problems Problem Noted Date Diagnosed Date History of hysterectomy Hx: UTI (urinary tract infection) Dysuria Frequency of urination Nocturia Social History Tobacco Use Types Packs/Day Years Used Date Smoking Tobacco: Never Assessed Sex and Gender Information Value Date Recorded Sex Assigned at Not on file Gender Identity Not on file Sexual Orientation Not on file Last Filed Vital Signs Vital Sign Reading Time Taken Comments Blood Pressure 122/76 07/02/2017 1:46 PM EDT Pulse - - Temperature - - Respiratory Rate - - Oxygen Saturation - - Inhaled Oxygen Concentration - - Weight 68.5 kg (151 lb) 07/02/2017 1:46 PM EDT Height 165.1 cm (5' 5 ) 07/02/2017 1:46 PM EDT Body Mass Index 25.13 07/02/2017 1:46 PM EDT Plan of Treatment Health Maintenance Due Date Last Done Comments COVID-19 Vaccine (#1) 04/12/1936 Depression Screening 1947 Preventative Health Evaluation 10/10/1953 DTap / Tdap / Td (1 - Tdap) 10/10/1954 Shingrix-Zoster Vaccine (1 of 2) 10/10/1985 Fall Risk Assessment 10/10/2000 Osteoporosis Screening (DEXA Scan) 10/10/2000 Pneumococcal Vaccine (1 of 1 - PCV) 10/10/2000 RSV Adult > 60+ Yrs or Pregn ant (1 - 1-dose 75+ series) 10/10/2010 Influenza Vaccine (#1) 2023 Hepatitis B Vaccines Aged Out No long er eligible based on patient's age to complete this topic RSV Ped < 20 months Aged Out No longe r eligible based on patient's age to complete this topic Care Teams Automatic Stacker Relationship Specialty Start Date End Date Po, Tor Fang MD [address] [place] [address] [address] [facility] [place] [address] PCP - General Internal Medicine 06/12/17
--- OUTSIDE RECORDS SUMMARY | 2024-04-02 15:27 | XMS_ITS ---
Author Organization [facility] Address [address] [place] [id number] Care Team Providers Care Charging Manipulator Name Role Phone Tor Rayo Primary Care Provider Marisol Carlson [phone] Encounters Encounter Location Date Provider Diagnosis [facility] [address] [place] [address] 02/05/2024 Marisol Morales Plan Of Treatment No Information Progress Notes * SKAGGSKim STARR CDOB: 6 (88 yo F)Acc No.[id number]:02/05/2024 Progress Note Patient:?Alexi SKAGGSith Jaclyn Provider:?Marisol Morales DPM :1935???Age:88 Y???Sex:Female D ate:02/05/2024 Address:[address] [place], [place] [id number] Pcp:Tor Rayo Subjective: * Chief Complaints: * ??? * Medical History:? Objective: * Vitals:? Assessment: Plan: * Treatment: * Images: * The named appointment provid er may or may not be the originator of this progress note, and it is not deemed complete until electronically signed by the appointment provider. Sign off status: Pending * Provider:?Marisol Morales DPM Date:?05/2023 Generated for Elinai charlotte/Famontserrat/eTransmitting on:?04/02/2024 03:27 PM EST
--- OUTSIDE RECORDS SUMMARY | 2024-04-02 15:27 | XMS_ITS | Encounter Summary ---
Author Organization [facility] Address [address] [place] [address] Care Team Providers Care Cisco Unified Communications Engineer Name Role Phone Tor Rayo MD Primary Care Provider [phone] Encounter Details Date Type Department Care Team (Late st Contact Info) Description 03/25/2024 Lab Requisition [facility] - Main Lab [address] [place] [id number] Ashley Brown MD [address] [facility] [address] [place] [address] Urinary tract infection, site not specified Social History Tobacco Use Types Packs/Day Years Used Date Smoking Tobacco: Never Assessed Sex and Gender Information Value Date Recorded Sex Assigned at Not on file Gender Identity Not on file Sexual Orientation Not on file documented as of this encounter Plan of Treatment Not on file documented as of this encounter Procedures Procedure Name Priority Date/Time Associated Diagnosis Comments BACTERIAL IDENTIFICATION AND SUSCEPTIBILITY, AEROBIC Routine 03/24/2024 12:00 AM EST Urinary tract infection, site not specified documented in this encounter Results * (ABNORMAL) Bacterial identification and susceptibility, aerobic (03/24/2024 12:00 AM EST) Culture, Bacterial ID and Sensitivity Escherichia coli(A) MADONNA 03/27/2024 10:36 AM EST [facility] Comment: This is an edited result. Previous organism was Gram negative bacilli on 03/25/2024 at 1349 EST. Culture, Bacterial ID and Sensitivity Pseudomonas aeruginosa(A) MADONNA 03/27/2024 10:36 AM EST [facility] Comment: The organism value for this result has been updated. These results have been appended to the previously preliminary verified report. Culture, Bacterial ID and Sensitivity Proteus mirabilis(A) MADONNA 03/27/2024 10:36 AM EST [facility] Comment: The organism value for this result has been updated. These results have been appended to the previously preliminary verified report. Edited result: Previously reported as Proteus species on 03/26/2024 at 0828 EST. Other Urine specimen from urethra / Unknown 03/24/2024 03/25/2024 12:46 PM EST Narrative Organism Antibiotic Method Susceptibility Escherichia coli Amoxicillin/Clavulanate MADONNA <=2 ug/ml: Susceptible Escherichia coli Ampicillin/Sulbactam MADONNA <=2 ug/ml: Susceptible Escherichia coli Piperacillin/Tazobactam MADONNA <=4 ug/ml: Susceptible Escherichia coli Cefazolin (Urine) MADONNA 2 ug/ml: Susceptible Escherichia coli Cefoxitin MADONNA <=4 ug/ml: Susceptible Escherichia coli Ceftazidime MADONNA <=0.5 ug/ml: Susceptible Escherichia coli Ceftriaxone MADONNA <=0.25 ug/ml: Susceptible Escherichia coli Cefepime MADONNA <=0.12 ug/ml: Susceptible Escherichia coli Meropenem MADONNA <=0.25 ug/ml: Susceptible Escherichia coli Amikacin MADONNA 2 ug/ml: Susceptible Escherichia coli Gentamicin MADONNA <=1 ug/ml: Susceptible Escherichia coli Ciprofloxacin MADONNA <=0.06 ug/ml: Susceptible Escherichia coli Levofloxacin MADONNA <=0.12 ug/ml: Susceptible Escherichia coli Nitrofurantoin MADONNA <=16 ug/ml: Susceptible Escherichia coli Trimethoprim/Sulfame thoxazol e MADONNA <=20 ug/ml: Susceptible Pseudomonas aeruginosa Piperacillin/Tazobactam MADONNA 16 ug/ml: Susceptible Pseudomonas aeruginosa Ceftazidime MADONNA 2 ug/ml: Susceptible Pseudomonas aeruginosa Cefepime MADONNA 2 ug/ml: Susceptible Pseudomonas aeruginosa Meropenem MADONNA <=0.25 ug/ml: Susceptible Pseudomonas aeruginosa Amikacin MADONNA 2 ug/ml: Susceptible Pseudomonas aeruginosa Ciprofloxacin MADONNA 0.5 ug/ml: Susceptible Pseudomonas aeruginosa Levofloxacin MADONNA 1 ug/ml: Susceptible Proteus mirabilis Ampicillin/Sulbactam MADONNA <=2 ug/ml: Susceptible Proteus mirabilis Piperacillin/Tazobactam MADONNA <=4 ug/ml: Susceptible Proteus mirabilis Cefazolin (Urine) MADONNA 2 ug/ml: Susceptible Proteus mirabilis Cefoxitin MADONNA <=4 ug/ml: Susceptible Proteus mirabilis Ceftazidime MADONNA <=0.5 ug/ml: Susceptible Proteus mirabilis Ceftriaxone MADONNA <=0.25 ug/ml: Susceptible Proteus mirabilis Cefepime MADONNA <=0.12 ug/ml: Susceptible Proteus mirabilis Meropenem MADONNA <=0.25 ug/ml: Susceptible Proteus mirabilis Amikacin MADONNA 2 ug/ml: Susceptible Proteus mirabilis Gentamicin MADONNA <=1 ug/ml: Susceptible Proteus mirabilis Ciprofloxacin MADONNA <=0.06 ug/ml: Susceptible Proteus mirabilis Levofloxacin MADONNA <=0.12 ug/ml: Susceptible Proteus mirabilis Nitrofurantoin MADONNA 128 ug/ml: Resistant Proteus mirabilis Trimethoprim/Sulfame thoxazol e MADONNA <=20 ug/ml: Susceptible Ashley Brown MD LAB MICROBIO LOGY - GENERAL ORDERABLES [facility] [address] [place] [address], documented in this encounter Visit Diagnoses Diagnosis Urinary tract infection, site not specified documented in this encounter Care Teams Cisco Unified Communications Engineer Relationship Specialty Start Date End Date Tor Rayo MD [address] [place] [address] [address] [facility] [place] [address] PCP - General Internal Medicine 03/25/24 documented as of this encounter
--- OUTSIDE RECORDS SUMMARY | 2024-04-02 15:27 | XMS_ITS ---
Author Organization [facility] Address [address] [place] [address] Care Team Providers Care Certified Lactation Educator Name Role Phone Tor Rayo Primary Care Provider Marisol Carlson [phone] REASON FOR VISIT Seen Sooner Encounters Encounter Location Date Provider Diagnosis [facility] [address] [place] [address] 11/14/2023 Marisol Morales Plan Of Treatment No Information Progress Notes * SHARIFA Kim CDOB: (88 yo F)Acc No.[id number]:11/14/2023 Progress Note Patient:?Kim SKAGGS Provider:?Marisol Morales DPM :1935???Age:88 Y???Sex:Female D ate:11/14/2023 Address:[address] [place], [place] [id number] Pcp:Tor Rayo Subjective: * Chief Complaints: * ???1. Seen Sooner. * Medical History:? Objective: * Vitals:? Assessment: Plan: * Treatment: * Images: * The named appointment provid er may or may not be the originator of this progress note, and it is not deemed complete until electronically signed by the appointment provider. Sign off status: Pending * Provider:?Marisol Morales DPM Date:?01/2024 Generated for Anita porter/Carmita/eTransmitting on:?04/02/2024 03:26 PM EST
--- OUTSIDE RECORDS SUMMARY | 2024-04-02 15:27 | XMS_ITS | Clinical Summary ---
Author Organization [address] [facility] Address [address] [place] [address] Phone Care Team Providers Care Baker Test Name Role Phone Tor Rayo MD Primary Care Provider [phone] Encounters Date Type Department Care Team Description 03/25/2024 Lab Requisition [facility] - Main Lab [address] [facility] [place] [address] Ashley Brown MD Urinary tract infection, site not specified from Last 3 Months Social History Tobacco Use Types Packs/Day Years Used Date Smoking Tobacco: Never Assessed Sex and Gender Information Value Date Recorded Sex Assigned at Not on file Gender Identity Not on file Sexual Orientation Not on file Plan of Treatment Health Maintenance Due Date Last Done Comments DTaP,Tdap,and Td Vaccines (1 - Tdap) 10/10/1954 Zoster Vaccines (1 of 2) 10/10/1985 Pneumococcal Vaccine: 65+ Ye ars (1 of 1 - PCV) 10/10/2000 RSV Immunization Patients 60 + Years Old (1 - 1-dose 75+ series) 10/10/2010 Depression Screening 02/05/2022 Falls Risk Assessment 02/05/2022 Medicare Annual Wellness Visit 02/05/2022 Osteoporosis Screening (Bone Density Screening) 02/05/2022 Social Influencers of Health Screening 02/05/2022 COVID-19 Vaccine ( - 2023-2 5 season) 2023 Influenza Vaccine (#1) 2023 HIB Vaccines Aged Out No longer eligi ble based on patient's age to complete this topic HPV Vaccines Aged Out No longer eligi ble based on patient's age to complete this topic Hepatitis A Vaccines Aged Out No long er eligible based on patient's age to complete this topic Hepatitis B Vaccines Aged Out No long er eligible based on patient's age to complete this topic IPV Vaccines Aged Out No longer eligi ble based on patient's age to complete this topic MMR Vaccines Aged Out No longer eligi ble based on patient's age to complete this topic Meningococcal ACWY Vaccine Aged Out N o longer eligible based on patient's age to complete this topic RSV Immunization Patients Un arvind 20 months Aged Out No longer eligible b ased on patient's age to complete this topic Varicella Vaccines Aged Out No longer eligible based on patient's age to complete this topic Procedures Procedure Name Priority Date/Time Associated Diagnosis Comments BACTERIAL IDENTIFICATION AND SUSCEPTIBILITY, AEROBIC Routine 03/24/2024 12:00 AM EST Urinary tract infection, site not specified from Last 3 Months Results * (ABNORMAL) Bacterial identification and susceptibility, aerobic (03/24/2024 12:00 AM EST) Culture, Bacterial ID and Sensitivity Escherichia coli(A) MADONNA 03/27/2024 10:36 AM EST [facility] Comment: This is an edited result. Previous organism was Gram negative bacilli on 03/25/2024 at 1349 EST. Culture, Bacterial ID and Sensitivity Pseudomonas aeruginosa(A) MADONNA 03/27/2024 10:36 AM EST [facility] Comment: The organism value for this result has been updated. These results have been appended to the previously preliminary verified report. Culture, Bacterial ID and Sensitivity Proteus mirabilis(A) MADONNA 03/27/2024 10:36 AM EST [facility] Comment: The organism value for this [...] MD LAB MICROBIO LOGY - GENERAL ORDERABLES RAJNI [facility] [address] [place] [address], [place] [phone] from Last 3 Months Care Teams Baker Test Relationship Specialty Start Date End Date Po, MD Tor [address] [place] [address] Dr [address] [facility] [place] [address] PCP - General Internal Medicine 03/25/24
--- OUTSIDE RECORDS SUMMARY | 2024-04-02 15:27 | XMS_ITS | Patient Health Record ---
Author Organization [facility] Address [address] [place] [address] Care Team Providers Care Mobile Mechanic Name Role Phone Tor Rayo Primary Care Provider Unavailmilli e Marisol Morales Unavailable [phone] Allergies Allergen (clinical drug ingredient) Drug/Non Drug Allergy documented on EMR Reaction Allergy Type Onset Date Status lisinopril Lisinopril coughing Drug Allergy Activ e Reason For Referral Diagnosis 1 Unspecified atherosc lerosis of [place] arteries of extremities, bilateral legs (I70.203) Diagnosis 2 Tinea unguium (B35.1 ) Diagnosis 3 Pain in right toe(s) (M79.674) Diagnosis 4 Pain in left toe(s) (M79.675) Diagnosis 5 Ingrowing nail (L60. 0) Diagnosis 6 Pes planus of right foot (M21.41) Diagnosis 7 Metatarsalgia of rig ht foot (M77.41) Diagnosis 8 Cellulitis of right toe (L03.031) Referring Provider First Name Tor Referring Provider Last Name Referred [facility] Referred Provider Marisol Morales Referred Address [address] [facility],[place], [place],[address], Referred Provider Specialty Podiatry Referral Priority Routine Medications Medication SIG (Take, Route, Frequency, Duration) Notes Start Date End Date Status Keflex 500 MG 1 capsule Orally every 12 hrs for 5 days 01/17/2019 Not-Taking Keflex 500 MG 1 capsule Orally every 12 hrs for 7 days 08/01/2016 Not-Taking hydroCHLOROthiazide 12.5 MG Orally Active Macrodantin Not-Taki ng Atorvastatin Calcium Active Lisinopril Not-Takin g Raloxifene HCl Activ e Cephalexin 500 MG 1 tablet Orally Twice a day for 5 days Not-Taking Aspirin Not-Taking Multi Vitamin Daily Active Omeprazole Active CeleBREX Active Calcium Active Ammonium Lactate 12 % APPLY TO AFFECTED AREA TWICE A DAY TO FEET for 30 Active Immunizations Vaccine Route Administration Date Status Jason nts COVID-19 Pfizer BioNTech Vaccine Unknown 11/29/2020 Administered First Dose: 04/10/20 Second Dose: 05/01/20 Social History Tobacco Use: Social History Observation Description Date Details (start date - stop date) Never Smoker NA - NA Tobacco Use/Smoking Question Answer Notes Are you a: nonsmoker Additional Findings: Tobacco Non-User Current no n-smoker Alcohol Screen Question Answer Notes Did you have a drink containing alcohol in the p ast year? No Points 0 Interpretation Negative Tobacco use other than smoking: Question Answer Notes Are you an other tobacco user? No Problems Problem Type SNOMED Code ICD Code Onset Dates Problem Status W/U Status Risk Notes Problem [id number] Unspecified atherosclerosis of [place] arteries of extremities, bilateral legs (I70.203) Active confirmed Problem Acquired hammer toe of left foot (2021737285976193) Other hammer toe(s) (acquired), left foot (M20.42) Active confirmed Problem Atherosclerosis of [place] artery of both lower extremities, with unspecified presence of clinical manifestation (I70.203) Active confirmed Problem Localized, primary osteoarthritis of the ankle and/or foot (906480089) Arthritis of joint of lesser toe, left (M19.072) Active confirmed Vital Signs Blood pressure diastolic 80 mm Hg 06/26/2023 Height 5 ft 4 in in 11/13/2023 Blood pressure systolic 130 mm Hg 06/26/2023 Weight 130 lbs 11/13/2023 BMI 22.31 kg/m2 11/13/2023 Encounters Encounter Location Date [facility] [address] 06/26/2023 Marisol Morales Atherosclerosis of [place] artery of both lower extremities, with unspecified presence of clinical manifestation I70.203 ; Tinea unguium B35.1 ; Pain in right toe(s) M79.674 and Pain in left toe(s) M79.675 [facility] [address] 11/13/2023 Marisol Morales Atherosclerosis of [place] artery of both lower extremities, with unspecified presence of clinical manifestation I70.203 ; Other hammer toe(s) (acquired), left foot M20.42 ; Tinea unguium B35.1 ; Pain in right toe(s) M79.674 ; Pain in left toe(s) M79.675 and Arthritis of joint of lesser toe, left M19.072 [facility] [address] [address] [place] [address] [facility]14[facility]2023 [facility] [address] 11/12/2023 Marisol Morales [facility] [address] 02/04/2024 Marisol Morales Assessments Encounter Date Diagnosis (ICD Code) Assessment Notes Treatment Notes Treatment Clinical Notes Section Notes 06/26/2023 Tinea unguium (ICD-10 - B35.1) 06/26/2023 Atherosclerosis of [place] artery of both lower extremities, with unspecified presence of clinical manifestation (ICD-10 - I70.203) 11/13/2023 Other hammer toe(s) (acquired), left foot (ICD-10 - M20.42) 11/13/2023 Atherosclerosis of [place] artery of both lower extremities, with unspecified presence of clinical manifestation (ICD-10 - I70.203) 11/13/2023 Tinea unguium (ICD-10 - B35.1) 06/26/2023 Pain in right toe(s) (ICD-10 - M79.674) 06/26/2023 Pain in left toe(s) (ICD-10 - M79.675) 11/13/2023 Pain in right toe(s) (ICD-10 - M79.674) 11/13/2023 Pain in left toe(s) (ICD-10 - M79.675) 11/13/2023 Arthritis of joint of lesser toe, left (ICD-10 - M19.072) Plan Of Treatment Pending Test Test Name Order Date *Uric Acid, Serum 06/27/2016 ESR 06/27/2016 X ray : Foot, left 3V 07/26/2016 X ray : Foot, left 3V 06/29/2017 [id number] NAIL, 6 OR MORE 09/07/2017 07616-FEVBTET NAIL, 6 OR MORE 12/07/2017 [id number] NAIL, 6 OR MORE 05/23/2016 [id number] NAIL, 6 OR MORE 05/08/2017 [id number] NAIL, 1-5 01/11/2016 21947-XWGCTYD NAIL, 1-5 02/15/2015 [id number] NAIL, 1-5 03/24/2015 05455-TRTPSGN NAIL, 1-5 07/07/2015 80338-Aongbktv Plate 03/24/2015 74676-Ifccgagv Plate 02/15/2016 84372-Xyibgssb Plate 04/04/2016 71375-Twynhtes Plate 02/15/2015 05635-Uwtdszdl Plate 01/30/2018 57513-Tledohgn Plate 07/26/2016 25756- Debride <25 sq cm 08/01/2016 41642 I&D ABSCESS- SIMPLE,SINGLE 016 [id number]-PUVEGSXZ DYSTROPHIC NAILS ANY # K2094-WNAYLUCA DYSTROPHIC NAILS ANY # Insurance Providers Payer Name Payer Address Payer Phone Subscriber Number Group Number Insured Name Patient Relationship to Insured Coverage Start Date Coverage End Date Blue[employer] 65 Medicare Preferred [address] [place] [address] [id number] Kim Skaggs Self - patient is the insured Medical (General) History Medical History History ICD Code osteoarthritis Osteoporosis Reflux Hypertension High Cholesterol Surgical History Surgery Date(Month/Year) left hip replacement 2003 right hip replacement 2000 Basal Cells removed from nose 03/25 left hand/ cyst 09/10/2020
--- OUTSIDE RECORDS SUMMARY | 2024-04-02 15:27 | XMS_ITS ---
Author Organization [facility] Address [address] [place] [address] Care Team Providers Care Ordering Machine Operator Name Role Phone Tor Rayo Primary Care Provider Marisol Carlson [phone] REASON FOR VISIT cx 02/08/24 Encounters Encounter Location Date Provider Diagnosis [address] [address] 02/04/2024 Marisol Morales Plan Of Treatment No Information Progress Notes * Kim SKAGGS CDOB: [birth year] (88 yo F)Acc No.[id number]:02/04/2024 Patient:?Kim SKAGGS :1935???Age:88 Y???Sex:Female Address:[address] [place] [address], [address] * true * Date:? Generated for Anita porter/Carmita/eTransmitting on:?04/02/2024 03:26 PM EST
== END 2024-04-02 13:21 | disposition home or self-care (01) ==
LOC: HO.MAMMO 13:20
PROVIDERS: PCP Internal Medicine; Visit Provider Internal Medicine
DX: Z12.31 Encounter for screening mammogram for malignant neoplasm of breast (principal); M81.0 Age-related osteoporosis without current pathological fracture
CPT/HCPCS: 77063; 77067; 77080

== ENCOUNTER → 2024-04-02 14:00 | Outpatient (BNV) | payer MEDICARE, SELFPAY | PROVIDERS: PCP Internal Medicine; Visit Provider Radiology Diagnostic Radiology | DX: M81.0 Age-related osteoporosis without current pathological fracture (principal) | CPT/HCPCS: 77063; 77067; 77080; 77081 ==

== ENCOUNTER 2024-06-26 11:36 | Outpatient (AMB) | payer MEDICARE, SELFPAY ==
--- NOTE | 2024-06-26 11:44 | MHC.PC.OV ---
Vital Signs 06/26/24 12:02 Height 5 ft 1 in Weight 150 lb 4 oz BMI 28.4 BP 130/74 Blood Pressure Location Lt brachial Position Sitting Pulse 88 Pulse Source Pulse Oximeter Temp 97.3 F Temp Source Temporal Artery Scan Pulse Oximetry (%) 97 Oxygen Delivery Method Room Air Intake Visit Reasons: DANNA, hypercholesterolo, Track Laying Machine Operator Required: No Accompanied by: Daughter Allergies lisinopril [LISINOPRIL] Allergy (Mild, Verified 06/26/24 12:02) COUGH, shortness of breath Tobacco use date assessed: 06/26/24 Fall risk assessment: No Falls in past year Last assessed Fall Risk: 06/26/24 Dental Screening Dental Screen Date: 03/27/24 [facility] Medical History (Updated 06/26/24 @ 12:07 by Tor Rayo MD) Anemia Ingrown toenail Vision abnormalities Dysuria Cataract Hip pain, left Preop exam for internal medicine Esophageal stricture Basal cell carcinoma Macular degeneration Osteoarthritis GERD (gastroesophageal reflux disease) Thyroid nodule Osteoporosis Hypercholesterolemia Hypertension Surgical History Status post closed reduction of dislocated total hip prosthesis S/P thyroid biopsy History of bilateral cataract extraction History of total abdominal hysterectomy and bilateral salpingo-oophorectomy History of appendectomy History of right hip replacement History of left hip replacement Family History Father Hemorrhage Mother Colitis Brother Multiple myeloma Sister Lymphoma Son In good health Daughter In good health Daughter In good health Social History Housing: House Alcohol intake: never Patient Tobacco Use Status: Never used Tobacco Tobacco use type: Cigarette e-Cigarette/Vaping Use: Currently Using Second Hand Smoke Exposure: No service: No Current occupational status: retired Cognitive needs: Yes (cane) Hearing needs: No Vision needs: Yes Questionnaire Thrive Questionnaire Date Thrive assessed: 03/27/24 DANNA-7 AMB Questionnaire DANNA-7 Date DANNA - 7 assessed: 03/27/24 Source: Developed by Drs. Michael Lindsay, Nichole Santos, Riki Jacobo and colleagues, with an educational caitie from [employer]. Physical exam (Primary Care) Vital Signs: Last Vital Signs Temp 97.3 F 06/26/24 12:02 Pulse 88 06/26/24 12:02 BP 130/74 06/26/24 12:02 Pulse Ox 97 06/26/24 12:02 Oxygen Delivery Method Room Air 06/26/24 12:02 BMI result Body Mass Index 28.4 Tobacco/Smoking Status: Tobacco use Status Tobacco use date assessed 06/26/24 06/26/24 12:03 Patient Tobacco Use Status Never used Tobacco 06/26/24 11:44 Tobacco use type Cigarette 06/26/24 11:44 e-Cigarette/Vaping Use Currently Using 06/26/24 11:44 Thrive Assessment: Date of Thrive Assessment Date Thrive assessed 03/27/24 06/26/24 11:44 Const General: alert; No acute distress Eyes Conjunctivae: conjunctivae normal Resp Auscultation: clear to auscultation bilaterally Cardio Rate: regular rate Rhythm: regular rhythm GI Inspection: Yes normal to inspection Extrem General: Yes normal to inspection and No edema Coding Level of Care Code Est Pt Level 4 (48299) Diagnoses Nonrheumatic aortic valve stenosis I35.0 Cardiac valve disease etiology: nonrheumatic Essential hypertension I10 Hypertension type: essential hypertension Hypercholesterolemia E78.00 Age-related osteoporosis without current pathological fracture M81.0 Osteoporosis type: age-related Presence of current pathological fracture: without current pathological fracture Gastroesophageal reflux disease without esophagitis K21.9 Esophagitis presence: without esophagitis Generalized anxiety disorder F41.1 Assessment & Plan Assessment & Plan (1) Aortic stenosis: Comment: mild 2021 1.5 cm December 2023he left ventricular systolic function is normal. The calculated ejection fraction is 64% by biplane method. - There is moderate to severe aortic valve stenosis. 0.72 cm2 - There is moderate posterior mitral annular calcification. Dr. Martin Code(s): I35.0 - Nonrheumatic aortic (valve) stenosis Category: Medical Qualifiers: Cardiac valve disease etiology: nonrheumatic Qualified Code(s): I35.0 - Nonrheumatic aortic (valve) stenosis Plan: Last echocardiogram in December 2023 moderately severe at 0.[address] Martin echo next week. (2) Hypertension: Code(s): I10 - Essential (primary) hypertension Category: Medical Qualifiers: Hypertension type: essential hypertension Qualified Code(s): I10 - Essential (primary) hypertension Plan: Continue with blood pressure medication. Decrease salt intake and exercise on hydrochlorothiazide only (3) Hypercholesterolemia: Code(s): E78.00 - Pure hypercholesterolemia, unspecified Category: Medical Plan: Avoid fried foods, chicken skin, eggs, butter margarine, pastries and meat. Be it pork or beef they have a lot of cholesterol LDL goal of less than 70 and triglyceride of less than 150 on atorvastatin 10 mg once a day (4) Osteoporosis: Comment: November 2016, April 2019, 2021March 2024 Code(s): M81.0 - Age-related osteoporosis without current pathological fracture Category: Medical Qualifiers: Osteoporosis type: age-related Presence of current pathological fracture: without current pathological fracture Qualified Code(s): M81.0 - Age-related osteoporosis without current pathological fracture Plan: No significant change from prior bone density (5) GERD (gastroesophageal reflux disease): Code(s): K21.9 - Gastro-esophageal reflux disease without esophagitis Category: Medical Qualifiers: Esophagitis presence: without esophagitis Qualified Code(s): K21.9 - Gastro-esophageal reflux disease without esophagitis Plan: Avoid the foods that causes that usually spicy foods, tomato products, juices, coffee, soda and foods that your sensitive to. After eating do not lie down, allow 3-4 hours before in lie down. And keep the head of bed above 30 degrees to avoid the acid from going up. On omeprazole (6) Generalized anxiety disorder: Code(s): F41.1 - Generalized anxiety disorder Category: Medical Plan: Continue with lorazepam as needed Plan History of Present Illness The patient is an 88-year-old female presenting for follow-up management primarily for aortic stenosis and osteoporosis. Her aortic stenosis has shown moderate to severe progression on an echocardiogram from December 2023 with a valve area of 0.72 cm?. She adjusts her activity to prevent exertional dyspnea and reports stability in her symptoms, including avoided episodes of fatigue or deterioration in exercise tolerance. Osteoporosis was identified through a March 2024 bone density scan, revealing decreased density in the lumbar spine. The patient reports stable bone condition with minimal change since prior assessments. Routine blood tests from December 2023 showed no anemia and normal renal and liver function, alongside favorable lipid profiles (LDL cholesterol at 66 mg/dL), with active management using atorvastatin and hydrochlorothiazide. Her treatment for GERD with omeprazole continues without noted complications. During evaluations, the patient denies new symptoms such as shortness of breath, fatigue, or increased tiredness, reinforcing her current medication regimen for essential hypertension, hypercholesterolemia, and anxiety with lorazepam as needed. Health Maintenance - Annual echocardiograms to monitor progression of aortic stenosis - Bone density testing in March 2024 showed osteoporosis with lumbar spine involvement - Routine blood work conducted in December 2023 with adequate lipid management and no anemia, normal electrolytes, and renal and liver function Social History Review of Systems - Cardiovascular: Denies chest pain or dyspnea. Reports slowing of gait without need for mid-activity pauses. - Musculoskeletal: Reports awareness of weak bones but denies changes since last bone density assessment. - Neurological: Denies fatigue or unexpected tiredness. - Respiratory: Denies shortness of breath upon normal exertion. - Digestive: Denies new or worsening symptoms of reflux. Physical Exam Results - Labs: LDL cholesterol at 66 mg/dL; normal anemia screening, renal, and liver function tests as of December 2023. - Tests and Diagnostics: Echocardiogram from December 2023 showed moderately severe aortic stenosis with valve area of 0.72 cm?. Bone density test from March 2024 indicating osteoporosis in the lumbar spine. Plan The ongoing management plan will continue with hydrochlorothiazide and atorvastatin for hypertension and cholesterol levels, respectively. The patient's current echo results suggest no immediate procedural risk, allowing time for observation until further cardiology input next Sunday, with subsequent discussion to start potential TAVR preparations as appropriate. Management of osteoporosis remains consistent with previous assessments, and gastrointestinal symptoms of GERD managed by ongoing omeprazole without new symptoms to report. Periodic reevaluation of anxiety and medication effects with lorazepam will be applied, tailoring therapy according to patient response. Pre-procedural imaging and repeat chest x-ray might be evaluated during the TAVR workup process. Patient was informed and verbally consented to the use of an ambient scribe for clinic note documentation during this visit. Discussion Notes I discussed with the patient the ongoing stability of her aortic stenosis, confirmed through echo findings, and reinforced continued surveillance with echocardiograms. We went over the coordinated plan for cardiology involvement, Dr. Martin?s subsequent follow-up, and the anticipatory guidance for potential TAVR discussions. I assured the patient that procedural interventions are straightforward with great outcome history, especially regarding transcatheter method planning. For osteoporosis, no significant osteoporosis treatment change is required with stable bone density reports noted. The patient expressed comfort with medications including omeprazole and lorazepam for GERD and anxiety, respectively. I reiterated the need to maintain follow-up consistency for medication effects and periodic lipid re-evaluation. The possibility of technique correlation with chest x-ray results was discussed briefly, with plans to address possible research manufacturing operator variability verification in adjunct clinical settings. Patient Instructions - Continue current medications as prescribed. - Attend follow-up echocardiogram and cardiology consultation next Sunday. - Report any new or worsening symptoms such as chest pain, increased fatigue, or significant changes in physical health. - Maintain routine physical activity within comfortable limits and report noticeable changes. - Follow up with Dr. Martin for further continuity of care. - Adhere to lifestyle recommendations including a heart-healthy diet and routine low-impact physical activity to promote bone health.
[2024-06-26 12:02] VITALS: BP 130/74; PULSE 88; TEMP 36.3; O2SAT 97; BMI 28.4
--- OUTSIDE RECORDS SUMMARY | 2024-06-26 14:00 | XMS_ITS ---
Author Organization [facility] Address [address] [place] [address] Care Team Providers Care Commercial Credit Specialist Name Role Phone Tor Rayo Primary Care Provider Marisol Carlson Unavailable [phone] Allergies Allergen (clinical drug ingredient) Drug/Non Drug Allergy documented on EMR Reaction Allergy Type Onset Date Status Lisinopril coughing Drug Allergy Active REASON FOR VISIT At Risk Footcare, Painful Nail(s) aggrevated by shoes and causing difficulty standing/walking. Medications Medication SIG (Take, Route, Frequency, Duration) Notes Start Date End Date Status Raloxifene HCl Activ e Atorvastatin Calcium 10 MG 1 tablet Oral ly Once a day Active Multi Vitamin Daily Active PreserVision AREDS 2 Active hydroCHLOROthiazide 25 MG 1 tablet in th e morning Orally Once a day Active Macrodantin Not-Taki ng Cephalexin 500 MG 1 tablet Orally Twic e a day for 5 days Not-Taking Lisinopril Not-Takin g Keflex 500 MG 1 capsule Orally every 12 hrs for 7 days 08/01/2016 Not-Taking Keflex 500 MG 1 capsule Orally every 12 hrs for 5 days 01/17/2019 Not-Taking Omeprazole 20 MG as directed Orally Once a day Active Calcium Active CeleBREX Active Aspirin Not-Taking Ammonium Lactate 12 % APPLY TO AFFECTED AREA TWICE A DAY TO FEET for 30 Not-Taking Social History Tobacco Use: Social History Observation Description Date Details (start date - stop date) Never Smoker NA - NA Tobacco Use/Smoking Question Answer Notes Are you a: nonsmoker Additional Findings: Tobacco Non-User Current no n-smoker Tobacco use other than smoking: Question Answer Notes Are you an other tobacco user? No Vital Signs Height 5 ft 4 in in 06/20/2024 Weight 151 lbs 06/20/2024 BMI 25.92 kg/m2 06/20/2024 Blood pressure systolic 130 mm Hg 06/21/19 25 Blood pressure diastolic 80 mm Hg 025 Encounters Encounter Location Date Provider Diagnosis [facility] [address] [place] [address] 06/20/2024 Marisol Morales Atherosclerosis of [place] artery of both lower extremities, with unspecified presence of clinical manifestation I70.203 ; Tinea unguium B35.1 ; Pain in right toe(s) M79.674 and Pain in left toe(s) M79.675 Assessments Encounter Date Diagnosis (ICD Code) Assessment Notes Treatment Notes Treatment Clinical Notes Section Notes 06/20/2024 Atherosclerosis of [place] artery of both lower extremities, with unspecified presence of clinical manifestation (ICD-10 - I70.203) 06/20/2024 Tinea unguium (ICD-10 - B35.1) 06/20/2024 Pain in right toe(s) (ICD-10 - M79.674) 06/20/2024 Pain in left toe(s) (ICD-10 - M79.675) Plan Of Treatment Next Appt Details Follow Up: 3 Months, Reason: Provider Name:Marisol nails, 09/24/2024 11:30:00 AM, [address] [place] [address], [id number], Procedure Notes * Category Sub-Category Detail Notes Debride Nail 6-10 Nail debridement Due to the cl inical pathology outlined in the exam findings, performance of this nail treatment is medically necessary as its management by an unskilled/untrained nonprofessional would put this patients foot and overall health at risk. Therefore, debridement to affected nail(s), as described in exam ( TA, T1, T2, T3, T4, T5, T6, T7, T8, T9, ), was performed exclusively by the physician of record to reduce/remove overall nail length, girth, thickness, subungual debris, and necrotic tissue, by manual and/or electrical means through the use of a nail nipper and/or dremel-type cutter grinder, to a more viable healthy nail plate or bed tissue 6-10 nails in total. Silver nitrate was used for any petechial bleeding as necessary. Definitive antifungal treatment options, both pharmaceutical and surgical, have been reviewed and discussed with the patient. The patient solely prefers the use of intermittent/as needed professional debridement services for their nail condition and understands the need for additional periodic treatments to maintain effectiveness in symptomatic relief - 03385 Keratoma Treatment Parring or Cutting o f Benign Hyperkeratotic Lesion(s) , (-56) 2-4 Lesions - Due to the at risk nature of the patients medical condition as documented in the exam findings, performance of this keratoderma treatment is medically necessary as its management by an unskilled/untrained nonprofessional would put this patients foot and overall health at risk. Therefore, the benign hyperkeratotic lesions, (2) in total, locations as stated and described in the exam ( SUB MTH (s) 1 B/L, Plantar Heel(s), B/L), were pared, and/or cut utilizing a sterile 15 blade, tissue nippers, and/or power dremel instrumentation by the physician of record - 06160, Q8 Progress Notes * Kim SKAGGS CDOB: 6 (88 yo F)Acc No.[id number]:06/20/2024 Progress Note Patient:?Kim SKAGGS C Provider:?Marisol Morales DPM :1935???Age:88 Y???Sex:Female D ate:06/20/2024 Address:[address] [place], [place] [address] Pcp:Tor Rayo Subjective: * Chief Complaints: * ???At Risk FootcarePainful N ail(s) aggrevated by shoes and causing difficulty standing/walking. * HPI: ???At Risk footcare:?Pt States Last PCP Visit:?Date?09/03/2023 * ROS:?General/Constitutional:?Nausea?denies.?Vomiting?denies.?Hunger Thirst?denies.?Loss appetite?denies.?Chills?denies.?Fatigue?denies.?Fever?denies.?Night Sweats?denies.?Unexplained weight loss?denies.?Unexplained weight gain?denies.?HEENTM:?Dentures?denies.?Dizziness?denies.?Glasses/contacts?denies.?Retinopathy?de nies.?Blurred/double vision?denies.?TMJ?denies.?Discharge/drainage?denies.?Implants?denies.?Sore throat?denies.?Dental implants?denies.?Hard of hearing ?denies.?Difficulty chewing/swallowing/speaking?denies.?Nose bleeds?denies.?Sore mouth?denies.?Respiratory:?On Oxygen?denies.?Pneumonia/pleurisy?denies.?Bronchitis?denies.?Emphysema?denies.?C oughing?denies.?Cough blood?denies.?Shortness of breath?denies.?Wheezing?denies.?Cardiovascular:?Pacemaker?denies.?MVP?denies.?WPW?denies.?CHF?denies.?Heart attack?denies.?Septal defect?denies.?Rapid beat?denies.?Chest pain ?denies.?Atrial Fib.?denies.?Murmur/Palpitations?denies.?Gastrointestinal:?Hemorrhoids?denies.?Stomach/Abdominal pain?denies.?Dark blood stool?denies.?Irritable bowel ?denies.?Constipation?denies.?Diarrhea?denies.?Hematology:?Swelling?denies.?Clots?denies.?Varicose Veins?denies.?Bruising?denies.?Bleeding problem?denies.?Genitourinary:?Blood urine?denies.?Frequent/Painfu/urination/bladder control?denies.?Kidney stones?denies.?Infection (UTI)?denies.?Nephropathy?denies.?sex trans dis (STD)?denies.?Prostate?denies.?Musculoskeletal:?Hammertoes?denies.?Bunions?denies.?Back Pain?denies.?Muscle Cramps/ Resting?denies.?Muscle cramps / walking?denies.?Generalized aches and pains?admits.?Weakness?denies.?Integ.:?Mascorro?denies.?Scars?denies.?Corns/calluses?denies.?Ingrown nails?admits.?Painful nails?denies.?Open Sores?denies.?Rashes?denies.?Neurologic:?Difficulty sleeping?denies.?Brain disorder?denies.?Numbness?denies.?Balance trouble?denies.?Confusion?denies.?Fainting/blackouts?denies.?Tingling?denies.?Tr emors?denies.? * Medical History:? * Surgical History:?left hip r eplacement 2004right hip replacement 2001Basal Cells removed from nose 03/25le hand/ cyst 09/10/2020 * Hospitalization/Major Diagno stic Procedure:?Denies Past Hospitalization * Family History:?Mother: dece ased, crohns disease.?Father: , diagnosed with Other specified conditions influencing health status.? * Social History:?Tobacco Use:?Tobacco Use/Smoking?Are you a:?nonsmoker ?Additional Findings: Tobacco Non-User?Current non-smoker ?Tobacco use other than smoking?Are you an other tobacco user??No ???Miscellaneous:?Caffeine: yes, coffee, 1-2 cups per day. ?Children: yes, 3. ?Exercise: yes, walking, [facility]. ?Marital status: . ?Occupation: retired nurse. * Medications:?TakingPreserVis ion AREDS 2 hydroCHLOROthiazide 25 MG Tablet 1 tablet in the morning Orally Once a day Atorvastatin Calcium 10 MG Tablet 1 tablet Orally Once a day Raloxifene HCl Multi Vitamin Daily Omeprazole 20 MG Capsule Delayed Release as directed Orally Once a day CeleBREX Calcium Taking PreserVision AREDS 2 Taking hydroCHLOROthiazide 25 MG Tablet 1 tablet in the morning Orally Once a day Taking Atorvastatin Calcium 10 MG Tablet 1 tablet Orally Once a day Taking Raloxifene HCl Taking Multi Vitamin Daily Taking Omeprazole 20 MG Capsule Delayed Release as directed Orally Once a day Taking CeleBREX Taking Calcium Not-Taking/PRNAmmonium Lactate 12 % Cream APPLY TO AFFECTED AREA TWICE A DAY TO FEET Aspirin Keflex 500 MG Capsule 1 capsule Orally every 12 hrs Keflex 500 MG Capsule 1 capsule Orally every 12 hrs Macrodantin Lisinopril Cephalexin 500 MG Tablet 1 tablet Orally Twice a day Medication List reviewed and reconciled with the patientNot-Taking/PRN Ammonium Lactate 12 % Cream APPLY TO AFFECTED AREA TWICE A DAY TO FEET Not-Taking/PRN Aspirin Not-Taking/PRN Keflex 500 MG Capsule 1 capsule Orally every 12 hrs Not- Taking/PRN Keflex 500 MG Capsule 1 capsule Orally every 12 hrs Not-Taking/PRN Macrodantin Not-Taking/PRN Lisinopril Not-Taking/PRN Cephalexin 500 MG Tablet 1 tablet Orally Twice a day Medication List reviewed and reconciled with the patient * Allergies:?Lisinopril: cough ingyes[Allergies Verified] Objective: * Vitals:?Ht: 5 ft 4 in, Wt: 1 51, BMI: 25.92, Shoe size: 8.5-9, BP: 130/80 mm Hg, Wt-k.49 kg. * Examination: ???Dermatologic: ?SKIN FINDINGS:?Skin exam reveals Keratotic lesion(s) located at, SUB MTH (s) 1 B/L, Plantar Heel(s), B/L.?Vascular: ?DP PULSES (B):? 1/4, B/L.?PT PULSES (B):? 0/4, B/L.?CAPILLARY FILL TIME:? delayed, all digits, B/L.?TROPHIC CONDITION-TEXTURE/ELASTICITY/TURGOR/HAIR GROWTH (B):? decreased, B/L.?TEMPERTURE GRADIENT (C):? decreased, cool to cool, proximal to distal, B/L.?PIGMENTATION:?normal, B/L.?EDEMA (C):?absent, B/L.?Nails: ?NAILS are:?Elongated, overgrown, dystrophic, lytic, greater than 3mm thick, discolored and friable with crumbly malodorous subungual debris, with pain on palpation, , TA, T1, T2, T3, T4, T5, T6, T7, T8, T9.?Orthopedic: ?MUSCLE STRENGTH:?5/5 all groups in a symmetrical fashion, B/L.?BUNION:?Medially prominent 1st MPJ , Lateral tracking 1st MPJ incompletely reducible , LEFT.?DIGITAL DEFORMITIES:?Digital contracture, PIPJ, 2-5 B/L, reducible with WB, or to push-up test, no over, nor underlapping.? Assessment: * Assessment: 1.?Tinea unguium - B35.1 (Pr imary)???2.?Atherosclerosis of [place] artery of both lower extremities, with unspecified presence of clinical manifestation - I70.203???3.?Pain in right toe(s) - M79.674???4.?Pain in left toe(s) - M79.675??? Plan: * Treatment: * Procedures:?Debride Nail 6-10:?Nail debridement?Due to the clinical pathology outlined in the exam findings, performance of this nail treatment is medically necessary as its management by an unskilled/untrained nonprofessional would put this patients foot and overall health at risk. Therefore, debridement to affected nail(s), as described in exam ( TA, T1, T2, T3, T4, T5, T6, T7, T8, T9, ), was performed exclusively by the physician of record to reduce/remove overall nail length, girth, thickness, subungual debris, and necrotic tissue, by manual and/or electrical means through the use of a nail nipper and/or dremel-type cutter grinder, to a more viable healthy nail plate or bed tissue 6- 10 nails in total. Silver nitrate was used for any petechial bleeding as necessary. Definitive antifungal treatment options, both pharmaceutical and surgical, have been reviewed and discussed with the patient. The patient solely prefers the use of intermittent/as needed professional debridement services for their nail condition and understands the need for additional periodic treatments to maintain effectiveness in symptomatic relief - 23497.?Keratoma Treatment:?Parring or Cutting of Benign Hyperkeratotic Lesion(s)?,(-56) 2-4 Lesions - Due to the at risk nature of the patients medical condition as documented in the exam findings, performance of this keratoderma treatment is medically necessary as its management by an unskilled/untrained nonprofessional would put this patients foot and overall health at risk. Therefore, the benign hyperkeratotic lesions, (2) in total, locations as stated and described in the exam ( SUB MTH (s) 1 B/L,Plantar Heel(s),B/L), were pared, and/or cut utilizing a sterile 15 blade, tissue nippers, and/or power dremel instrumentation by the physician of record - 72457, Q8.? * Procedure Codes:?66998 DEBRI DE NAIL, 6 OR MORE, Modifiers: XS 37186 TRIM SKIN LESIONS, 2 TO 4, Modifiers: XS , Q8 * Follow Up:?3 Months * Images: * Sign off status: Completed true * Provider:?Marisol Morales DPM Date:? Generated for Anita porter/Carmita/Boaz on:?06/26/2024 01:59 PM EDT History and Physical Notes * HPI (History of Present Illness) Category Sub-Category Detail Notes Category Not es At Risk footcare Pt States Last PCP Visit: Date: Examination Category Sub-Category Detail Notes Category Not es Dermatologic SKIN FINDINGS: Skin exam reveal s Keratotic lesion(s) located at, SUB MTH (s) 1 B/L, Plantar Heel(s), B/L Orthopedic BUNION: Medially promine nt 1st MPJ , Lateral tracking 1st MPJ incompletely reducible , LEFT DIGITAL DEFORMITIES: Digital contracture , PIPJ, 2-5 B/L, reducible with WB, or to push-up test, no over, nor underlapping MUSCLE STRENGTH: 5/5 all groups in a symmetrical fashion, B/L Vascular DP PULSES (B): 1/4, B/L PT PULSES (B): 0/4, B/L CAPILLARY FILL TIME: delayed, all digits , B/L TEMPERTURE GRADIENT (C): decreased, cool to cool, proximal to distal, B/L TROPHIC CONDITION-TEXTURE/ELASTICITY/TURGOR/HAIR GROWTH (B): decreased, B/L EDEMA (C): absent, B/L PIGMENTATION: normal, B/L Nails NAILS are: Elongated, overg rown, dystrophic, lytic, greater than 3mm thick, discolored and friable with crumbly malodorous subungual debris, with pain on palpation, , TA, T1, T2, T3, T4, T5, T6, T7, T8, T9
--- OUTSIDE RECORDS SUMMARY | 2024-06-26 14:00 | XMS_ITS ---
Author Organization [facility] Address [address] [place] [address] Care Team Providers Care Communications Officer Name Role Phone Tor Rayo Primary Care Provider Marisol Carlson [phone] Encounters Encounter Location Date Provider Diagnosis [address] [address] 02/05/2024 Marisol Morales Plan Of Treatment Next Appt Details Provider Name:Marisol nails, 09/24/2024 11:30:00 AM, [address] [place], [address], Progress Notes * Kim SKAGGS CDOB: (88 yo F)Acc No.[id number]:02/05/2024 Progress Note Patient:?Kim SKAGGS Provider:?Marisol Morales DPM :1935???Age:88 Y???Sex:Female D ate:02/05/2024 Address:[address] [place] [address] Pcp:Tor Rayo Subjective: * Chief Complaints: * ??? * Medical History:? Objective: * Vitals:? Assessment: Plan: * Treatment: * Images: * The named appointment provid er may or may not be the originator of this progress note, and it is not deemed complete until electronically signed by the appointment provider. Sign off status: Pending * Provider:?Marisol Morales DPM Date:?05/2023 Generated for Anita porter/Carmita/Boaz on:?06/26/2024 02:00 PM EDT
--- OUTSIDE RECORDS SUMMARY | 2024-06-26 14:00 | XMS_ITS ---
Author Organization [facility] Address [address] [place] [address] Care Team Providers Care Wallpaper Installer Name Role Phone Tor Rayo Primary Care Provider Marisol Carlson Unavailable [phone] Rosa Fuentes [phone] REASON FOR VISIT Seen Sooner Encounters Encounter Location Date Provider Diagnosis [address] [address] 06/23/2024 Rosa Fuentes Plan Of Treatment Next Appt Details Provider Name:Marisol nails, 09/24/2024 11:30:00 AM, [address] [place] [address], [phone], Progress Notes * Kim SKAGGS CDOB: (88 yo F)Acc No.[id number]:06/23/2024 Progress Note Patient:?Kim SKAGGS Provider:?Rosa Fuentes DPM :1935???Age:88 Y???Sex:Female D ate:06/23/2024 Address:[address] [place] [phone] Pcp:Tor Rayo Subjective: * Chief Complaints: * ???1. Seen Sooner. * Medical History:? Objective: * Vitals:? Assessment: Plan: * Treatment: * Images: * The named appointment provid er may or may not be the originator of this progress note, and it is not deemed complete until electronically signed by the appointment provider. Sign off status: Pending * Provider:?Rosa Fuentes DPM Date:?0 06/23/2024 Generated for Anita porter/Carmita/Boaz on:?06/26/2024 02:00 PM EDT
--- OUTSIDE RECORDS SUMMARY | 2024-06-26 14:00 | XMS_ITS | Clinical Summary ---
Author Organization [facility] Address [address] [place] [address] Phone Care Team Providers Care Supervising Broker Name Role Phone Tor Rayo MD Primary Care Provider [phone] Social History Tobacco Use Types Packs/Day Years Used Date Smoking Tobacco: Never Assessed Comments Unknown Sex and Gender Information Value Date Recorded Sex Assigned at Not on file Legal Sex Female 2:10 AM EST Gender Identity Not on file Sexual Orientation Not on file Plan of Treatment Health Maintenance Due Date Last Done Comments DTaP,Tdap,and Td Vaccines (1 - Tdap) 10/10/1954 Pneumococcal Vaccine: 50+ Ye ars (1 of 1 - PCV) 10/10/1985 Zoster Vaccines (1 of 2) 10/10/1985 RSV Immunization Adult Patie nts (1 - 1-dose 75+ series) 10/10/2010 Depression Screening 02/05/2022 Falls Risk Assessment 02/05/2022 Medicare Annual Wellness Visit 02/05/2022 Osteoporosis Screening (Bone Density Screening) 02/05/2022 Social Influencers of Health Screening 02/05/2022 COVID-19 Vaccine ( - 2023-2 5 season) 2023 Influenza Vaccine (Season Ended) 2024 HIB Vaccines Aged Out No longer eligi [...] patient's age to complete this topic Meningococcal B Vaccine Aged Out No l onger eligible based on patient's age to complete this topic RSV Immunization Patients Un arvind 20 months Aged Out No longer eligible b ased on patient's age to complete this topic Varicella Vaccines Aged Out No longer eligible based on patient's age to complete this topic Insurance BLUE CROSS - [place] MEDICARE ADVANTAGE Care Teams Supervising Broker Relationship Specialty Start Date End Date Tor Rayo MD [address] [place] [address] [address] [facility] [place] [address] PCP - General Internal Medicine 03/25/24
--- OUTSIDE RECORDS SUMMARY | 2024-06-26 14:00 | XMS_ITS | Encounter Summary ---
Author Organization [facility] Address [address] [place] [address] Care Team Providers Care Development Executive Name Role Phone Tor Rayo MD Primary Care Provider [phone] Encounter Details Date Type Department Care Team (Late st Contact Info) Description 03/25/2024 Lab Requisition [facility] [address] [place] [address] Ashley Brown MD [address] [facility] [address] [place] [address] Urinary tract infection, site not specified Social [...] Escherichia coli(A) MADONNA 03/27/2024 10:36 AM EST [facility] Comment: This is an edited result. Previous organism was Gram negative bacilli on 03/25/2024 at 1349 EST. Culture, Bacterial ID and Sensitivity Pseudomonas aeruginosa(A) MADONNA 03/27/2024 10:36 AM EST [facility] Comment: The organism value for this result has been updated. These results have been appended to the previously preliminary verified report. Culture, Bacterial ID and Sensitivity Proteus mirabilis(A) MADONNA 03/27/2024 10:36 AM EST [facility] Comment: The organism value for [...] Trimethoprim/Sulfame thoxazol e MADONNA <=20 ug/ml: Susceptible us Ashley Brown MD LAB MICROBIOLOGY - G ENERAL ORDERABLES Final Result Performing Organization Address [facility]/State/ZIP Co de Phone Number [facility] [address] [place] [address], documented in this encounter Visit Diagnoses Diagnosis Urinary tract infection, site not specified documented in this encounter Care Teams Development Executive Relationship Specialty Start Date End Date Tor Rayo MD [address] [place] [address] [address] [facility] [place] [address] PCP - General Internal Medicine 03/25/24 documented as of this encounter
--- OUTSIDE RECORDS SUMMARY | 2024-06-26 14:00 | XMS_ITS | Clinical Summary ---
Author Organization [facility] Address [address] [place] [address] Care Team Providers Care Corral Boss Name Role Phone Tor Rayo MD Primary Care Provider [phone] Allergies Active Allergy Reactions Criticality Noted Date [...] age to complete this topic Care Teams Corral Boss Relationship Specialty Start Date End Date Po, Tor Fang MD [address] [place] [address] Dr [address] [facility] [place] [address] PCP - General Internal Medicine 06/12/17
--- OUTSIDE RECORDS SUMMARY | 2024-06-26 14:00 | XMS_ITS | Patient Health Record ---
Author Organization [facility] Address [address] [place] [address] Care Team Providers Care Die Cut Operator Name Role Phone Tor Rayo Primary Care Provider Marisol Carlson Unavailable [phone] Rosa Fuentes Unavailable [phone] Allergies Allergen (clinical drug ingredient) Drug/Non Drug Allergy documented on EMR Reaction Allergy Type Onset Date Status Lisinopril coughing Drug Allergy Active Reason For Referral Diagnosis 1 Unspecified atherosc lerosis of mi'kmaq arteries of extremities, bilateral legs (I70.203) Diagnosis [...] Name Tor Referring Provider [facility] Name [facility] Provider Marisol Morales Referred Address [address] [facility],[place], [place],[address], Referred Provider Specialty Podiatry Referral Priority Routine Medications Medication SIG (Take, Route, Frequency, Duration) Notes Start Date End Date Status Aspirin Not-Taking Ammonium Lactate 12 % APPLY TO AFFECTED AREA TWICE A DAY TO FEET for 30 Not-Taking PreserVision AREDS 2 Active Keflex 500 MG 1 capsule Orally every 12 hrs for 7 days 08/01/2016 Not-Taking Keflex 500 MG 1 capsule Orally every 12 hrs for 5 days 01/17/2019 Not-Taking hydroCHLOROthiazide 25 MG 1 tablet in th e morning Orally Once a day Active Macrodantin Not-Taki ng Raloxifene HCl Activ e Cephalexin 500 MG 1 tablet Orally Twic e a day for 5 days Not-Taking Atorvastatin Calcium 10 MG 1 tablet Oral ly Once a day Active Lisinopril Not-Takin g Omeprazole 20 MG as directed Orally Once a day Active Multi Vitamin Daily Active Calcium Active CeleBREX Active Immunizations Vaccine Route Administration Date Status Comme nts COVID-19 Pfizer BioNTech Vaccine Unknown 11/29/2020 [...] Problem Status W/U Status Risk Notes Problem [id number] Unspecified atherosclerosis 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'kmaq arteries of extremities, bilateral legs (I70.203) Active confirmed Problem Acquired hammer toe of left foot (2647146501887509) Other hammer toe(s) (acquired), left foot (M20.42) Active confirmed Problem Bilateral atherosclerosis of arteries of lower limbs (disorder) (70617947415382157 ) Atherosclerosis of mi'kmaq artery of both lower extremities, with unspecified presence of clinical manifestation (I70.203) Active confirmed Problem Localized, primary osteoarthritis of the ankle and/or foot (482807243) Arthritis of joint of lesser toe, left (M19.072) Active confirmed Vital Signs Blood pressure diastolic 80 mm Hg 06/20/2024 Height 5 ft 4 in in 06/20/2024 Blood pressure systolic 130 mm Hg 06/20/2024 Weight 151 lbs 06/20/2024 BMI 25.92 kg/m2 06/20/2024 Encounters Encounter Location Date Provider Diagnosis [facility] [address] [place] [address] 11/13/2023 Marisol Morales Atherosclerosis of mi'kmaq artery of both lower extremities, with unspecified presence of clinical manifestation I70.203 ; Other hammer toe(s) (acquired), left foot M20.42 ; Tinea unguium B35.1 ; Pain in right toe(s) M79.674 ; Pain in left toe(s) M79.675 and Arthritis of joint of lesser toe, left M19.072 [facility] [address] [place] [address] 06/20/2024 Marisol Morales Atherosclerosis of mi'kmaq artery of both lower extremities, with unspecified presence of clinical manifestation I70.203 ; Tinea unguium B35.1 ; Pain in right toe(s) M79.674 and Pain in left toe(s) M79.675 [facility] [address] 11/12/2023 Marisol Morales [address] [address] 02/04/2024 Marisol Morales Assessments Encounter Date Diagnosis (ICD Code) Assessment Notes Treatment Notes Treatment Clinical Notes Section Notes 11/13/2023 Other hammer toe(s) (acquired), left foot (ICD-10 - M20.42) 11/13/2023 Atherosclerosis of mi'kmaq artery of both lower extremities, with unspecified presence of clinical manifestation (ICD-10 - I70.203) 06/20/2024 Tinea unguium (ICD-10 - B35.1) 06/20/2024 Atherosclerosis of mi'kmaq artery of both lower extremities, with unspecified presence of clinical manifestation (ICD-10 - I70.203) 06/20/2024 Pain in right toe(s) (ICD-10 - M79.674) 11/13/2023 Tinea unguium (ICD-10 - B35.1) 06/20/2024 Pain in left toe(s) (ICD-10 - [...] X ray : Foot, left 3V 06/29/2017 07847-SXFHCZG NAIL, 6 OR MORE 09/07/2017 67675-XXARDCB NAIL, 6 OR MORE 12/07/2017 99514-XUHUBMA NAIL, 6 OR MORE 05/23/2016 97425-JHYBMDS NAIL, 6 OR MORE 05/08/2017 03381-IXWABVS NAIL, 1-5 01/11/2016 72379-PWYQYOJ NAIL, 1-5 02/15/2015 24609-YHQKEKB NAIL, 1-5 03/24/2015 34062-HXXPGWX NAIL, 1-5 07/07/2015 79905-Kffgifvx Plate 03/24/2015 54010-Opqnyrdz Plate 02/15/2016 63219-Uvwzpwuj Plate 04/04/2016 88399-Zrzltbex Plate 02/15/2015 46075-Gzxqephw Plate 01/30/2018 35416-Mjobqqlg Plate 07/26/2016 88257- Debride <25 sq cm 08/01/2016 43587 I&D ABSCESS- SIMPLE,SINGLE 016 B1806-YAFORGTC DYSTROPHIC NAILS ANY # [id number] DYSTROPHIC NAILS ANY # Next Appt Details Provider Name:Marisol nails, 09/24/2024 11:30:00 AM, [address] [place] [address], [phone], Insurance Providers Payer Name Payer Address Payer Phone Subscriber Number Group Number Insured Name Patient Relationship to Insured Coverage Start Date Coverage End Date [facility] 65 Medicare Preferred [address] [place] [address] [id number] Kim Skaggs Self - patient is the insured Medical (General) History Medical History History ICD Code osteoarthritis Osteoporosis Reflux Hypertension High Cholesterol Surgical History Surgery Date(Month/Year) left hip replacement 2003 right hip replacement 2000 Basal Cells removed from nose 03/25 left hand/ cyst 09/10/2020
== END 2024-06-26 12:15 | disposition home or self-care (01) ==
LOC: HO.HMCH 11:37
PROVIDERS: PCP Internal Medicine; Visit Provider Internal Medicine
DX: I35.0 Nonrheumatic aortic (valve) stenosis (principal); I10 Essential (primary) hypertension; E78.00 Pure hypercholesterolemia, unspecified; M81.0 Age-related osteoporosis without current pathological fracture; K21.9 Gastro-esophageal reflux disease without esophagitis; F41.1 Generalized anxiety disorder

== ENCOUNTER → 2024-06-26 11:36 | Outpatient (BNVA) | payer MEDICARE, SELFPAY | PROVIDERS: PCP Internal Medicine; Visit Provider Internal Medicine | DX: E78.00 Pure hypercholesterolemia, unspecified (principal); I35.0 Nonrheumatic aortic (valve) stenosis; I10 Essential (primary) hypertension; M81.0 Age-related osteoporosis without current pathological fracture; K21.9 Gastro-esophageal reflux disease without esophagitis; F41.1 Generalized anxiety disorder | CPT/HCPCS: 99212 ==

== ENCOUNTER 2024-07-15 10:23 | Outpatient (AMB) | payer MEDICARE, SELFPAY ==
--- NOTE | 2024-07-15 10:32 | A.OFFPC_ITS ---
Vital Signs 07/15/24 10:33 Height 5 ft 1 in Weight 152 lb BMI 28.7 BP 120/80 Blood Pressure Location Lt brachial Position Sitting Pulse 79 Pulse Source Pulse Oximeter Temp 97.1 F Temp Source Temporal Artery Scan Pulse Oximetry (%) 97 Oxygen Delivery Method Room Air Intake Visit Reasons: [facility] 07/02 afib Intake Note: Patient is here for hospital discharge follow up. Patient was discharged from [facility] on 07/02/24. Financial Manager Required: No Deep Submergence Vehicle Operator: Present Accompanied by: Daughter Allergies lisinopril [LISINOPRIL] Allergy (Mild, Verified 07/15/24 10:35) COUGH, shortness of breath Medication List - Last Reviewed 07/15/24 by MERARY Medrano apixaban (Eliquis) 5 mg PO BID atorvastatin 10 mg PO DAILY calcium carbonate (Calcium 600) 600 mg PO BID celecoxib 200 mg PO DAILY estradiol 0.01%(0.1mg/gram) (Estrace) 1 appful vaginal DAILY lidocaine 5% 1 patch topical DAILY lorazepam 1 mg PO BID-QID PRN 75 days metoprolol succinate ER 25 mg PO DAILY multivitamin 1 tab PO DAILY omeprazole 20 mg PO BID raloxifene 60 mg PO DAILY trospium mg PO Tobacco use date assessed: 07/15/24 Fall risk assessment: No Falls in past year Last assessed Fall Risk: 07/15/24 Dental Screening Dental Screen Date: 03/27/24 HPI [facility] 07/02 afib HPI Details 88-year-old female with past medical his tory of hypertension, hypercholesterolemia, osteoporosis, GERD, generalized anxiety disorder and aortic stenosis last seen 06/[address] Rayo coming in for hospital discharge follow up. In review of the notes, patient was seen in [facility] 06/30/2024 for rapid heart rate and concern for AFib in the setting of chest pain. Patient was found to be in atrial fibrillation and admitted for further workup.? Presenting with concerns regarding atrial fibrillation management post-recent hospitalization. She experienced a singular episode of atrial fibrillation, returning to sinus rhythm without intervention while admitted at [facility]. The patient's history of hydrochlorothiazide use may link to hypokalemia contributing to the cardiac event, following which it was discontinued. Echocardiographic assessment for aortic stenosis showed no progression, leading to delay in planned TAVR. The patient is now managed on metoprolol and apixaban, with emphasis on monitoring heart rate and preventing atrial fibrillation recurrence. She was seen by her buff wheel fabricator post-hospitalization advised to continue on metoprolol and Eliquis without plans of Holter monitor and TAVR was postponed. Per her daughter she was advised by cards she could stay on the Celebrex and conjunction with the Eliquis. [facility] Medical History Anemia Ingrown toenail Vision abnormalities Dysuria Cataract Hip pain, left Preop exam for internal medicine Esophageal stricture Basal cell carcinoma Macular degeneration Osteoarthritis GERD (gastroesophageal reflux disease) Thyroid nodule Osteoporosis Hypercholesterolemia Hypertension Surgical History Status post closed reduction of dislocated total hip prosthesis S/P thyroid biopsy History of bilateral cataract extraction History of total abdominal hysterectomy and bilateral salpingo-oophorectomy History of appendectomy History of right hip replacement History of left hip replacement Family History Father Hemorrhage Mother Colitis Brother Multiple myeloma Sister Lymphoma Son In good health Daughter In good health Daughter In good health Social History Housing: House Alcohol intake: never Patient Tobacco Use Status: Never used Tobacco Tobacco use type: Cigarette e-Cigarette/Vaping Use: Never Used Second Hand Smoke Exposure: No service: No Current occupational status: retired Cognitive needs: Yes (cane) Hearing needs: No Vision needs: Yes Questionnaire PHQ-9 Over the last 2 weeks, how often have you been bothered by any of the following problems? 1. Little interest or pleasure in doing things: not at all 2. Feeling down, depressed, or hopeless: not at all 3. Trouble falling or staying asleep, or sleeping too much: not at all 4. Feeling tired or having little energy: not at all 5. Poor appetite or overeating: not at all 6. Feeling bad about yourself - or that you are a failure or have let yourself or your family down: not at all 7. Trouble concentrating on things, such as reading the newspaper or watching television: not at all 8. Moving or speaking so slowly that other people could have noticed. Or the opposite - being so fidgety or restless that you have been moving around a lot more than usual: not at all 9. Thoughts that you would be better off or of hurting yourself in some way: not at all Total score: 0 Depression Screening Interpretation: Negative Depression Screening Done: Yes Source: Developed by Drs. Michael Lindsay, Nichole Santos, Riki Jacobo and colleagues, with an educational caitie from hereO. Thrive Questionnaire Date Thrive assessed: 03/27/24 I am a: Patient What is your living situation today?: I have a steady place to live Within the past 12 months, did the food you bought not last and you didn't have the money to get more?: Never true Within the past 12 months, did you worry whether your food would run out before you got money to buy more?: Never true Do you have trouble paying for medicines?: No Do you have trouble getting transportation to medical appointments?: No Do you have trouble paying your heating and electricity bill?: No Do you have trouble taking care of your child, family member or friend?: No Do you have trouble with day-to-day activities such as bathing, preparing meals, shopping, managing finances, etc.?: No Are you currently unemployed and looking for a job?: No Are you interested in more education?: No Please select the resources that you would like help with: None Currently or been in a relationship where the following occur: No concerns reported THRIVE Score: 0 AUDIT C Alcohol Use Questionnaire (AUDIT-C) 1. How often do you have a drink containing alcohol?: Never Total Score: 0 DANNA-7 AMB Questionnaire DANNA-7 Date DANNA - 7 assessed: 03/27/24 Feeling nervous, anxious, or on edge: 0 = Not at all Not being able to stop or control worryin = Not at all Worrying too much about different things: 0 = Not at all Trouble relaxin = Not at all Being so restless that it is hard to sit still: 0 = Not at all Becoming easily annoyed or irritable: 0 = Not at all Feeling afraid as if something awful might happen: 0 = Not at all Total DANNA-7 score (0-4 normal; 5-9 mild; 10-14 moderate; 15-21 severe): 0 Source: Developed by Drs. Michael Lindsay, Nichole Santos, Riki Jacobo and colleagues, with an educational caitie from here[employer]. Review of Systems Const Denies body aches, Denies chills, Denies fever(s), Denies headache(s) and Denies poor appetite Eyes Reports no additional complaints ENT Denies dizziness and Denies headache(s) Card Denies chest pain, Denies syncope, Denies irregular heart rhythm, Denies lightheadedness and Denies dyspnea Resp Denies cough and Denies dyspnea Reports no additional complaints Musc Reports no additional complaints and Denies abnormal gait Skin/Breast Reports system reviewed and no additional complaints, except as documented Neuro Denies abnormal gait, Denies dizziness, Denies syncope and Denies headache(s) Psych Reports no additional complaints Physical exam (Primary Care) Vital Signs: Last Vital Signs Temp 97.1 F 07/15/24 10:33 Pulse 79 07/15/24 10:33 BP 120/80 07/15/24 10:33 Pulse Ox 97 07/15/24 10:33 Oxygen Delivery Method Room Air 07/15/24 10:33 BMI result Body Mass Index 28.7 Tobacco/Smoking Status: Tobacco use Status Tobacco use date assessed 07/15/24 07/15/24 10:34 Patient Tobacco Use Status Never used Tobacco 07/15/24 10:34 Tobacco use type Cigarette 07/15/24 10:34 e-Cigarette/Vaping Use Never Used 07/15/24 10:39 PHQ-9: PHQ-9 Score PHQ-9: Total score 0 07/15/24 10:44 Depression Screening Interpretation: Negative Thrive Assessment: Date of Thrive Assessment Date Thrive assessed 03/27/24 07/15/24 10:34 Currently or been in a relationship where the following occur: No concerns reported Const General: cooperative, healthy appearing, comfortable and no acute distress Orientation/consciousness: patient oriented x3 HENMT Head: Yes normocephalic Ears: hearing grossly normal bilaterally General nose exam: Normal external nose present Eyes General: appearance normal, both eyes and all related structures Conjunctivae: conjunctivae normal Neck Neck: Yes full ROM and Yes no lymphadenopathy Resp Effort & Inspection: normal respiratory effort Auscultation: clear to auscultation bilaterally, no crackles, no rales, no rhonchi and no wheezes Cardio Rate: regular rate Rhythm: regular rhythm Heart sounds: Murmur heart sound present () Skin General skin exam: no rashes or lesions noted Neuro General: patient oriented x3 Gait exam (Neuro): Normal gait present Extrem General: Yes normal to inspection, Yes full ROM and No edema Psych Affect: normal affect Attitude: cooperative Insight: Good insight present (Psych) Judgement: Good judgement present (Psych) Coding Level of Care Code Est Pt Level 4 (02708) Diagnoses Nonrheumatic aortic valve stenosis I35.0 Cardiac valve disease etiology: nonrheumatic Essential hypertension I10 Hypertension type: essential hypertension Atrial fibrillation I48.91 Assessment & Plan Assessment & Plan (1) Aortic stenosis: Comment: mild 2021 1.5 cm December 2023he left ventricular systolic function is normal. The calculated ejection fraction is 64% by biplane method. - There is moderate to severe aortic valve stenosis. 0.72 cm2 - There is moderate posterior mitral annular calcification. Dr. Donnelly Code(s): I35.0 - Nonrheumatic aortic (valve) stenosis Category: Medical Qualifiers: Cardiac valve disease etiology: nonrheumatic Qualified Code(s): I35.0 - Nonrheumatic aortic (valve) stenosis Plan: Patient has been following with Dr. Donnelly recent echo showing no progression of aortic stenosis and Cardiology recommending postponing TAVR and repeat echo in 9 months to monitor progression. Patient is not currently symptomatic. Denies any chest pain or shortness of breath. (2) Hypertension: Code(s): I10 - Essential (primary) hypertension Category: Medical Qualifiers: Hypertension type: essential hypertension Qualified Code(s): I10 - Essential (primary) hypertension Plan: Continue on current blood pressure medication. Avoid salt intake and encourage healthy diet and regular exercise. (3) Atrial fibrillation: Comment: 06/2023 Code(s): I48.91 - Unspecified atrial fibrillation Category: Medical Plan: Patient found to be in atrial fibrillation while admitted at [facility] patient converted to normal sinus rhythm spontaneously and without intervention. While admitted her hydrochlorothiazide was discontinued due to hypokalemia and patient was started on metoprolol for rate control and Eliquis for anticoagulation. She was seen by her buff wheel fabricator who did not address this and no plans for Holter monitor to continue monitoring for atrial fibrillation. Plan to obtain hospital notes and Cardiology notes for next steps. Plan The patient will proceed with a therapeutic regimen inclusive of metoprolol XL 25 mg for heart rate control and apixaban 5 mg BID to mitigate thromboembolic risk from atrial fibrillation. A athletic monitor is recommended to track any arrhythmia recurrence. Continuation of this management strategy is based on the lack of further atrial fibrillation episodes and controlled blood pressure readings. Her medication plan excludes hydrochlorothiazide due to adverse electrolyte effects linked to her recent hospitalization. Reevaluation for aortic stenosis will accompany echocardiographic assessment in nine months, while maintaining regular cardiology consultations. This note was constructed using voice recognition software. While every effort has been made to ensure accuracy and aluminum siding applicator, still areas may have been included sometimes these areas may affect the content or meeting of the given symptoms. Total time spent caring for the patient today was 30 minutes. This includes time spent before the visit reviewing the chart, time spent during the visit, and time spent after the visit and documentation. Patient was informed and verbally consented to the use of an ambient scribe for clinic note documentation during this visit. Medications: New apixaban (Eliquis) 5 mg PO BID 90 days 180 tabs 0RF metoprolol succinate ER 25 mg PO DAILY 90 tabs 0RF
[2024-07-15 10:33] VITALS: BP 120/80; PULSE 79; TEMP 36.2; O2SAT 97; BMI 28.7
--- OUTSIDE RECORDS SUMMARY | 2024-07-15 11:30 | XMS_ITS ---
Author Organization [facility] Address [address] [place] [address] Care Team Providers Care Rabbler Name Role Phone Tor Rayo Primary Care Provider Marisol Carlson Unavailable [phone] Allergies Allergen (clinical drug ingredient) Drug/Non Drug Allergy documented on EMR Reaction Allergy Type Onset Date Status lisinopril Lisinopril coughing Drug Allergy Activ e REASON FOR VISIT At Risk Footcare, Painful [...] 025 Encounters Encounter Location Date Provider Diagnosis [facility] [address] [place] [address] 06/20/2024 Marisol Morales Atherosclerosis of prairie band artery of both lower extremities, with unspecified presence of clinical manifestation I70.203 ; Tinea unguium B35.1 ; Pain in right toe(s) M79.674 and Pain in left toe(s) M79.675 Assessments Encounter Date Diagnosis (ICD Code) Assessment Notes Treatment Notes Treatment Clinical Notes Section Notes 06/20/2024 Atherosclerosis of prairie band artery of both lower extremities, with unspecified presence of clinical manifestation (ICD-10 - I70.203) 06/20/2024 Tinea unguium (ICD-10 - B35.1) 06/20/2024 Pain in right toe(s) (ICD-10 - M79.674) 06/20/2024 Pain in left toe(s) (ICD-10 - M79.675) Plan Of Treatment Next Appt Details Follow Up: 3 Months, Reason: Provider Name:Marisol nails, 09/24/2024 11:30:00 AM, [address] [place] [address], [phone], Procedure Notes * Category Sub-Category Detail Notes [...] use of a nail nipper and/or dremel-type grinder set up operator external, to a more viable healthy nail plate [...] to maintain effectiveness in symptomatic relief - 60406 Keratoma Treatment Parring or Cutting o f [...] instrumentation by the physician of record - 27792, Q8 Progress Notes * Kim SKAGGS CDOB: 6 (88 yo F)Acc No.[id number]:06/20/2024 Progress Note Patient:?Kim SKAGGS Provider:?Marisol Morales DPM :1935???Age:88 Y???Sex:Female D ate:06/20/2024 Address:[address] [place], [place] [phone] Pcp:Tor Rayo Subjective: * Chief Complaints: * [...] hip replacement 2001Basal Cells removed from nose 03/25left hand/ cyst 09/10/2020 * Hospitalization/Major Diagno stic [...] 1.?Tinea unguium - B35.1 (Pr imary)???2.?Atherosclerosis of prairie band artery of both lower extremities, with unspecified [...] use of a nail nipper and/or dremel-type grinder set up operator external, to a more viable healthy nail plate [...] to maintain effectiveness in symptomatic relief - 50523.?Keratoma Treatment:?Parring or Cutting of Benign Hyperkeratotic Lesion(s)?,(-56) [...] instrumentation by the physician of record - 52625, Q8.? * Procedure Codes:?09399 DEBRI DE NAIL, 6 OR MORE, Modifiers: XS 17061 TRIM SKIN LESIONS, 2 TO 4, Modifiers: XS , Q8 * Follow Up:?3 Months * Images: * Sign off status: Completed true * Provider:?Marisol Morales DPM Date:? Generated for Anita porter/Carmita/Boaz on:?07/15/2024 11:30 AM EDT History and Physical Notes * HPI [...]
--- OUTSIDE RECORDS SUMMARY | 2024-07-15 11:30 | XMS_ITS | Patient Health Record ---
Author Organization [facility] Address [address] [place] [address] Care Team Providers Care Rfid Engineer Name Role Phone Tor Rayo Primary Care Provider Marisol Carlson Unavailable [phone] Rosa Fuentes Unavailable [phone] Allergies Allergen (clinical drug ingredient) Drug/Non Drug Allergy documented on EMR Reaction Allergy Type Onset Date Status lisinopril Lisinopril coughing Drug Allergy Activ e Reason For Referral Diagnosis 1 Unspecified atherosc lerosis of [place] arteries of extremities, bilateral legs (I70.203) Diagnosis [...] Name Tor Referring Provider Last Name [facility] Referred Provider Marisol Morales Referred Address [address] [facility],[place], [place],[address], Referred Provider Specialty Podiatry Referral Priority Routine [...] Problem Status W/U Status Risk Notes Problem [id number] Unspecified atherosclerosis of [place]ogn[place] arteries of extremities, bilateral legs (I70.203) Active confirmed Problem Acquired hammer toe of left foot (4986311690724450) Other hammer toe(s) (acquired), left foot (M20.42) Active confirmed Problem Bilateral atherosclerosis of arteries of lower limbs (disorder) (73664727497709551 ) Atherosclerosis of afognak artery of both lower extremities, with unspecified presence of clinical manifestation (I70.203) Active confirmed Problem Localized, primary osteoarthritis of the ankle and/or foot (396058320) Arthritis of joint of lesser toe, left (M19.072) Active confirmed Vital Signs Blood pressure diastolic 80 mm Hg 06/20/2024 Height 5 ft 4 in in 06/20/2024 Blood pressure systolic 130 mm Hg 06/20/2024 Weight 151 lbs 06/20/2024 BMI 25.92 kg/m2 06/20/2024 Encounters Encounter Location Date Provider Diagnosis [facility] [address] [place] [address] 11/13/2023 Marisol Morales Atherosclerosis of afognak artery of both lower extremities, with unspecified presence of clinical manifestation I70.203 ; Other hammer toe(s) (acquired), left foot M20.42 ; Tinea unguium B35.1 ; Pain in right toe(s) M79.674 ; Pain in left toe(s) M79.675 and Arthritis of joint of lesser toe, left M19.072 [facility] [address] [place] [address] 06/20/2024 Marisol Morales Atherosclerosis of afognak artery of both lower extremities, with unspecified presence of clinical manifestation I70.203 ; Tinea unguium B35.1 ; Pain in right toe(s) M79.674 and Pain in left toe(s) M79.675 [facility] [address] 11/12/2023 Marisol Morales [facility] [address] [place] [address] 02/04/2024 Marisol Morales Assessments Encounter Date Diagnosis (ICD Code) Assessment Notes Treatment Notes Treatment Clinical Notes Section Notes 11/13/2023 Other hammer toe(s) (acquired), left foot (ICD-10 - M20.42) 11/13/2023 Atherosclerosis of afognak artery of both lower extremities, with unspecified presence of clinical manifestation (ICD-10 - I70.203) 06/20/2024 Tinea unguium (ICD-10 - B35.1) 06/20/2024 Atherosclerosis of afognak artery of both lower extremities, with unspecified [...] X ray : Foot, left 3V 06/29/2017 58552-BAEDPEJ NAIL, 6 OR MORE 09/07/2017 30858-HEFCTAO NAIL, 6 OR MORE 12/07/2017 52768-HSVCTWT NAIL, 6 OR MORE 05/23/2016 64695-QDSZCSW NAIL, 6 OR MORE 05/08/2017 27488-AYMCCRY NAIL, 1-5 01/11/2016 36765-OYKCSTM NAIL, 1-5 02/15/2015 30480-UHPYRJQ NAIL, 1-5 03/24/2015 94726-KEGPMXD NAIL, 1-5 07/07/2015 33207-Kqxsvukj Plate 03/24/2015 56126-Gecndyot Plate 02/15/2016 94714-Ohdsyxef Plate 04/04/2016 29871-Mibjfwkt Plate 02/15/2015 10325-Gkhaxpec Plate 01/30/2018 90444-Fepfqyxt Plate 07/26/2016 74932- Debride <25 sq cm 08/01/2016 44261 I&D ABSCESS- SIMPLE,SINGLE 016 A0776-DYQUAHPI DYSTROPHIC NAILS ANY # A8344-VWEWBXES DYSTROPHIC NAILS ANY # Next Appt Details Provider Name:Marisol Robyn nails, 09/24/2024 11:30:00 AM, [address] [place], [address], Insurance Providers Payer Name Payer Address Payer Phone Subscriber Number Group Number Insured Name Patient Relationship to Insured Coverage Start Date Coverage End Date [facility] 65 Medicare Preferred [address] [place] [address] [id number] Kim Skaggs Self - patient is the insured Medical (General) History Medical History History ICD Code osteoarthritis Osteoporosis Reflux Hypertension High Cholesterol Surgical History Surgery Date(Month/Year) left hip replacement 2003 right hip replacement 2000 Basal Cells removed from nose 03/25 left hand/ cyst 09/10/2020
--- OUTSIDE RECORDS SUMMARY | 2024-07-15 11:30 | XMS_ITS ---
Author Organization [facility] Address [address] [place] [address] Care Team Providers Care Window Shade Cutter Name Role Phone Tor Rayo Primary Care Provider Marisol Carlson Unavailable [phone] Rosa Fuentes [phone] REASON FOR VISIT Seen Sooner Encounters Encounter Location Date Provider Diagnosis [address] [address] 06/23/2024 Rosa Fuentes Plan Of Treatment Next Appt Details Provider Name:Marisol nails, 09/24/2024 11:30:00 AM, [address] [place] [address], [phone], Progress Notes * Kim SKAGGS CDOB: (88 yo F)Acc No.[id number]:06/23/2024 Progress Note Patient:?Kim SKAGGS Provider:?Rosa Fuentes DPM :1935???Age:88 Y???Sex:Female D ate:06/23/2024 Address:[address] [place] [id number] Pcp:Tor Rayo Subjective: * Chief Complaints: * [...] DPM Date:?0 06/23/2024 Generated for Anita porter/Carmita/Boaz on:?07/15/2024 11:30 AM EDT
--- OUTSIDE RECORDS SUMMARY | 2024-07-15 11:30 | XMS_ITS | Clinical Summary ---
Author Organization [facility] Address [address] [place] [address] Care Team Providers Care Dulite Machine Bluer Name Role Phone Tor Rayo MD Primary Care Provider [phone] Allergies Active Allergy Reactions Criticality Noted Date [...] age to complete this topic Care Teams Dulite Machine Bluer Relationship Specialty Start Date End Date Po, Tor Fang MD [address] [place] [address] [address] [facility] [place] [address] PCP - General Internal Medicine 06/12/17
--- OUTSIDE RECORDS SUMMARY | 2024-07-15 11:31 | XMS_ITS ---
Author Organization [facility] Address [address] [place] [address] Care Team Providers Care Traveling Nurse Name Role Phone Tor Rayo Primary Care Provider Marisol Carlson [phone] Encounters Encounter Location Date Provider Diagnosis [address] [address] 02/05/2024 Marisol Morales Plan Of Treatment Next Appt Details Provider Name:Marisol nails, 09/24/2024 11:30:00 AM, [address] [place], [address], Progress Notes * Kim SKAGGS CDOB: (88 yo F)Acc No.[id number]:02/05/2024 Progress Note Patient:?Kim SKAGGS Provider:?Marisol Morales DPM :1935???Age:88 Y???Sex:Female D ate:02/05/2024 Address:[address] [place] [phone] Pcp:Tor Rayo Subjective: * Chief Complaints: * ??? * Medical History:? Objective: * Vitals:? Assessment: Plan: * Treatment: * Images: * The named appointment provid er may or may not be the originator of this progress note, and it is not deemed complete until electronically signed by the appointment provider. Sign off status: Pending * Provider:?Marisol Morales DPM Date:?05/2023 Generated for Anita porter/Carmita/Boaz on:?07/15/2024 11:30 AM EDT
== END 2024-07-15 11:13 | disposition home or self-care (01) ==
LOC: HO.HMCH 10:24
PROVIDERS: PCP Internal Medicine
DX: I35.0 Nonrheumatic aortic (valve) stenosis (principal); I10 Essential (primary) hypertension; I48.91 Unspecified atrial fibrillation

== ENCOUNTER → 2024-07-15 10:23 | Outpatient (BNVA) | payer MEDICARE, SELFPAY | PROVIDERS: PCP Internal Medicine | DX: I35.0 Nonrheumatic aortic (valve) stenosis (principal); I10 Essential (primary) hypertension; I48.91 Unspecified atrial fibrillation | CPT/HCPCS: 96127; 99212 ==

== ENCOUNTER → 2024-07-23 23:59 | Outpatient (BNV) | payer MEDICARE, SELFPAY | PROVIDERS: PCP Internal Medicine; Visit Provider Internal Medicine | DX: I35.0 Nonrheumatic aortic (valve) stenosis (principal); I48.91 Unspecified atrial fibrillation; I10 Essential (primary) hypertension | CPT/HCPCS: G0180 ==

== ENCOUNTER 2024-07-30 11:50 | Outpatient (AMB) | payer MEDICARE, SELFPAY ==
--- NOTE | 2024-07-30 12:00 | AM.OFFWIN_ITS ---
Intake Vital Signs 07/30/24 12:06 Height 5 ft 1 in Weight 148 lb 4 oz BMI 28.0 BP 144/78 H Blood Pressure Location Rt brachial Position Sitting Respiration 16 Pulse 86 Pulse Source Pulse Oximeter Temp 98.2 F Temp Source Oral Pulse Oximetry (%) 95 Oxygen Delivery Method Room Air Intake Visit Reasons: EP ? broken LT second toe Intake Note: EP c/o ? broken LT second toe Patient Tobacco Use Status: Never used Tobacco Cooker Helper Required: No Is last menstrual period known: No Post menopausal: No Patient : No Allergies lisinopril [LISINOPRIL] Allergy (Mild, Verified 07/30/24 12:04) COUGH, shortness of breath Do you need a note to return to daycare/school/sports/work: No HPI HPI Comments History of Present Illness Details History of Present Illness - The patient is an 88-year-old female w ith a past med hx of osteoporosis, HTN, HLD, afib on eliquis, GERD presenting with left foot pain, specifically at the joint of the second toe. - The onset of pain occurred either yest erday or the night before. - The patient is uncertain about the cau se but speculates it might be due to an impact against a wall. - The pain was severe enough to cause in somnia last night. - The patient is currently on Apixaban ( Eliquis), which poses a risk for bruising and other complications. Physical Exam General: Cooperative, healthy appearing, comfortable, no acute distress and well developed Orientation: Patient oriented x3 Limitations: No limitations Head: Normal to inspection Ears: Hearing grossly normal bilaterally Nose: Normal External nose present Face and sinus: Normal facial exam Eyes: Appearance normal, both eyes and all related structures Neck: Normal visual inspection and Yes full ROM Respiratory: Normal respiratory effort and able to speak in complete sentences. Skin: No rashes or lesions noted Neuro: Patient oriented x3 Extremities: TTP left 2nd toe MTP with diffuse ecchymosis along the toe into the joint and foot. Full ROM all toes, NVI all toes. no TTP remainder of left foot. [facility] Medical History Anemia Ingrown toenail Vision abnormalities Dysuria Cataract Hip pain, left Preop exam for internal medicine Esophageal stricture Basal cell carcinoma Macular degeneration Osteoarthritis GERD (gastroesophageal reflux disease) Thyroid nodule Osteoporosis Hypercholesterolemia Hypertension Surgical History Status post closed reduction of dislocated total hip prosthesis S/P thyroid biopsy History of bilateral cataract extraction History of total abdominal hysterectomy and bilateral salpingo-oophorectomy History of appendectomy History of right hip replacement History of left hip replacement Family History Father Hemorrhage Mother Colitis Brother Multiple myeloma Sister Lymphoma Son In good health Daughter In good health Daughter In good health Social History Housing: House Alcohol intake: never Patient Tobacco Use Status: Never used Tobacco Tobacco use type: Cigarette e-Cigarette/Vaping Use: Never Used Second Hand Smoke Exposure: No service: No Current occupational status: retired Cognitive needs: Yes (cane) Hearing needs: No Vision needs: Yes Review of Systems Const All systems reviewed & are unremarkable except as noted in HPI and below Physical Exam Vital Signs: Last Vital Signs Temp 98.2 F 07/30/24 12:06 Pulse 86 07/30/24 12:06 Resp 16 07/30/24 12:06 BP 144/78 H 07/30/24 12:06 Pulse Ox 95 07/30/24 12:06 Oxygen Delivery Method Room Air 07/30/24 12:06 BMI result Body Mass Index 28.0 Assessment & Plan Assessment & Plan (1) Toe pain, left: Code(s): M79.675 - Pain in left toe(s) Plan: The patient will undergo an x-ray of the left foot to evaluate the joint of the second toe for any fractures or dislocation. The x-ray will help in deciding the appropriate management, whether it be surgical or conservative. The patient has been advised to seek immediate medical care if she experiences a fall or head injury. After the x-ray, the results will be reviewed to determine further steps. The patient was provided with instructions to proceed to the lab for imaging and return for a follow-up discussion regarding the findings. FINDINGS: Three views of the foot are submitted. The bones are osteopenic. There is no fracture or dislocation. There is moderate osteoarthritis of the 1st MTP joint with joint space narrowing and osteophyte formation. There is also moderate osteoarthritis of the intertarsal and tarsometatarsal joints. There is calcification of the plantar fascia. XR/XR foot LT min 3V IMPRESSION: Degenerative changes of the left foot as described. Electronically signed by: Michael Jamison MD 07/30/2024 12:41 PM EDT RP Ralf taped toe, recommended ice, rest and tylenol. Follow up with PCP if no improvement in her pain over the coming weeks. Patient was informed and verbally consented to the use of an ambient scribe for clinic note documentation during this visit. Orders: Orders XR foot LT min 3V Today M79.675 - Pain in left toe(s) Coding Level of Care Code Est Pt Level 4 (21569) Diagnoses Toe pain, left M79.675
[2024-07-30 12:06] VITALS: BP 144/78; PULSE 86; RESP 16; TEMP 36.8; O2SAT 95; BMI 28.0
--- OUTSIDE RECORDS SUMMARY | 2024-07-30 12:40 | XMS_ITS | Clinical Summary ---
Author Organization [facility] Address [address] [place] [address] Care Team Providers Care Hot Top Liner Helper Name Role Phone Tor Rayo MD Primary Care Provider [phone] Allergies Active Allergy Reactions Criticality Noted Date [...] age to complete this topic Care Teams Hot Top Liner Helper Relationship Specialty Start Date End Date Po, Tor Fang MD [address] [place] [address] [address] [facility] [place] [address] PCP - General Internal Medicine 06/12/17
== END 2024-07-30 12:55 | disposition home or self-care (01) ==
PROVIDERS: PCP Internal Medicine; Visit Provider Physician Assistant
DX: M79.675 Pain in left toe(s) (principal)

== ENCOUNTER 2024-07-30 12:20 | Outpatient (REF) | payer MEDICARE, SELFPAY ==
--- NOTE | ~2024-07-30 | XR_ITS ---
EXAMINATION: XR FOOT 3 OR MORE VIEWS LEFT HISTORY: M79.675 - Pain in left toe(s) COMPARISON: There are no prior studies available for comparison. FINDINGS: Three views of the foot are submitted. The bones are osteopenic. There is no fracture or dislocation. There is moderate osteoarthritis of the 1st MTP joint with joint space narrowing and osteophyte formation. There is also moderate osteoarthritis of the intertarsal and tarsometatarsal joints. There is calcification of the plantar fascia. XR/XR foot LT min 3V IMPRESSION: Degenerative changes of the left foot as described. Electronically signed by: Michael Jamison MD 07/30/2024 12:41 PM EDT
== END 2024-07-30 12:21 | disposition home or self-care (01) ==
LOC: HO.HMGCX 12:20
PROVIDERS: PCP Internal Medicine; Visit Provider Physician Assistant
DX: M79.675 Pain in left toe(s) (principal)
CPT/HCPCS: 73630; 99212

== ENCOUNTER → 2024-07-30 12:24 | Outpatient (BNV) | payer MEDICARE, SELFPAY | PROVIDERS: PCP Internal Medicine; Visit Provider Radiology Diagnostic Radiology | DX: M19.072 Primary osteoarthritis, left ankle and foot (principal) | CPT/HCPCS: 73630 ==

== ENCOUNTER 2025-02-16 09:55 | Outpatient (AMB) | payer MEDICARE, SELFPAY ==
--- NOTE | 2025-02-16 09:57 | A.OFFPC_ITS ---
Vital Signs 02/16/25 09:58 02/16/25 10:31 Height 5 ft 1 in Weight 140 lb BMI 26.4 BP 182/80 H 168/74 H Blood Pressure Location Lt brachial Position Sitting Pulse 82 Pulse Source Pulse Oximeter Temp 97.2 F Temp Source Temporal Artery Scan Pulse Oximetry (%) 97 Oxygen Delivery Method Room Air Intake Visit Reasons: , HTN Stereotyper Helper Required: No Accompanied by: Self / Same As Patient Allergies lisinopril (LISINOPRIL) Allergy (Mild, Verified 02/16/25 10:17) COUGH, shortness of breath Medication List - Last Reconciled 02/16/25 by Casie Cline PA-C aspirin 81 mg PO DAILY atorvastatin 10 mg PO DAILY [id number]-[id number] [id number] mg (PreserVision AREDS 2 CO Q-10) caps PO calcium carbonate (Calcium 600) 600 mg PO BID celecoxib 200 mg PO DAILY cranberry fruit concentrate (Azo Cranberry) 250 mg PO .qd estradiol 0.01%(0.1mg/gram) (Estrace) 1 appful vaginal DAILY ferrous sulfate 325 mg PO DAILY lidocaine 5% 1 patch topical DAILY lorazepam 1 mg PO BID-QID PRN 75 days magnesium oxide 400 mg PO DAILY metoprolol succinate ER 25 mg PO DAILY multivitamin 1 tab PO DAILY omeprazole 20 mg PO BID raloxifene 60 mg PO DAILY Tobacco use date assessed: 07/15/24 Fall risk assessment: No Falls in past year Last assessed Fall Risk: 02/16/25 Dental Screening Dental Screen Date: 03/27/24 HPI , HTN HPI Details 88-year-old female with past medical his tory of hypertension, hypercholesterolemia, osteoporosis, GERD, generalized anxiety disorder and aortic stenosis last seen 07/2024 coming in for follow up. In review of the notes patient had TAVR procedure 11/18/2024 seen by Cardiology post-op echo stable follow up in 1 year. Presenting for a follow-up visit after cardiac surgery and for management of elevated blood pressure. Her cardiac history includes a TAVR procedure a couple of months ago, after which she developed a new right bundle branch block. She has a history of one episode of atrial fibrillation that lasted for a few hours, but a subsequent two-week heart monitor showed no recurrence and she is not currently on Eliquis, only a baby aspirin. The patient has consistently elevated blood pressure readings at home in the high 150s to low 160s for the past several days, a change from her historical baseline of 120s-140s. Her blood pressure was also noted to be elevated at her recent cardiology appointment. She has a history of anemia with a hematocrit around 32-33%, down from a baseline of 37%. She was started on an iron supplement a couple of months ago post-TAVR and tolerates it well with her regimen of Colace and MiraLAX for constipation. [facility] Medical History Anemia Ingrown toenail Vision abnormalities Dysuria Cataract Hip pain, left Preop exam for internal medicine Esophageal stricture Basal cell carcinoma Macular degeneration Osteoarthritis GERD (gastroesophageal reflux disease) Thyroid nodule Osteoporosis Hypercholesterolemia Hypertension Surgical History Status post closed reduction of dislocated total hip prosthesis S/P thyroid biopsy History of bilateral cataract extraction History of total abdominal hysterectomy and bilateral salpingo-oophorectomy History of appendectomy History of right hip replacement History of left hip replacement Family History Father Hemorrhage Mother Colitis Brother Multiple myeloma Sister Lymphoma Son In good health Daughter In good health Daughter In good health Social History Housing: House Alcohol intake: never Patient Tobacco Use Status: Never used Tobacco Tobacco use type: Cigarette e-Cigarette/Vaping Use: Never Used Second Hand Smoke Exposure: No service: No Current occupational status: retired Cognitive needs: Yes (cane) Hearing needs: No Vision needs: Yes Questionnaire Thrive Questionnaire Date Thrive assessed: 07/15/24 I am a: Patient What is your living situation today?: I have a steady place to live Within the past 12 months, did the food you bought not last and you didn't have the money to get more?: Never true Within the past 12 months, did you worry whether your food would run out before you got money to buy more?: Never true Do you have trouble paying for medicines?: No Do you have trouble getting transportation to medical appointments?: No Do you have trouble paying your heating and electricity bill?: No Do you have trouble taking care of your child, family member or friend?: No Do you have trouble with day-to-day activities such as bathing, preparing meals, shopping, managing finances, etc.?: No Are you currently unemployed and looking for a job?: No Are you interested in more education?: No Please select the resources that you would like help with: None Currently or been in a relationship where the following occur: No concerns reported THRIVE Score: 0 DANNA-7 AMB Questionnaire DANNA-7 Date DANNA - 7 assessed: 03/27/24 Source: Developed by Drs. Michael Lindsay, Nichole Santos, Riki Jacobo and colleagues, with an educational caitie from [employer]. Review of Systems Const Denies body aches, Denies chills, Denies fever(s), Denies headache(s) and Denies poor appetite Eyes Reports no additional complaints ENT Denies dysphagia, Denies dizziness, Denies headache(s) and Denies odynophagia Card Denies chest pain, Denies syncope, Denies edema, Denies irregular heart rhythm, Denies lightheadedness and Denies dyspnea Resp Denies cough and Denies dyspnea GI Denies abdominal pain, Denies constipation, Denies dysphagia, Denies diarrhea, Denies nausea, Denies odynophagia and Denies vomiting Reports no additional complaints Musc Reports no additional complaints and Denies abnormal gait Skin/Breast Reports system reviewed and no additional complaints, except as documented Neuro Denies abnormal gait, Denies dizziness, Denies syncope and Denies headache(s) Psych Reports no additional complaints Physical exam (Primary Care) Vital Signs: Last Vital Signs Temp 97.2 F 02/16/25 09:58 Pulse 82 02/16/25 09:58 BP 168/74 H 02/16/25 10:31 Pulse Ox 97 02/16/25 09:58 Oxygen Delivery Method Room Air 02/16/25 09:58 BMI result Body Mass Index 26.4 Tobacco/Smoking Status: Tobacco use Status Tobacco use date assessed 07/15/24 02/16/25 10:09 Patient Tobacco Use Status Never used Tobacco 02/16/25 10:09 Tobacco use type Cigarette 02/16/25 10:09 e-Cigarette/Vaping Use Never Used 02/16/25 10:09 Thrive Assessment: Date of Thrive Assessment Date Thrive assessed 07/15/24 02/16/25 10:09 Currently or been in a relationship where the following occur: No concerns reported Const General: cooperative, healthy appearing, comfortable and no acute distress Orientation/consciousness: patient oriented x3 HENMT Head: Yes normocephalic Ears: hearing grossly normal bilaterally General nose exam: Normal external nose present Eyes General: appearance normal, both eyes and all related structures Conjunctivae: conjunctivae normal Neck Neck: Yes full ROM and Yes no lymphadenopathy Resp Effort & Inspection: normal respiratory effort Auscultation: clear to auscultation bilaterally, no crackles, no rales, no rhonchi and no wheezes Cardio Rate: regular rate Rhythm: regular rhythm Skin General skin exam: no rashes or lesions noted Neuro General: patient oriented x3 Gait exam (Neuro): Normal gait present Extrem General: Yes normal to inspection, Yes full ROM and No edema Psych Affect: normal affect Attitude: cooperative Insight: Good insight present (Psych) Judgement: Good judgement present (Psych) Coding Level of Care Code Est Pt Level 3 (08995) Diagnoses Essential hypertension I10 Hypertension type: essential hypertension Nonrheumatic aortic valve stenosis I35.0 Cardiac valve disease etiology: nonrheumatic Atrial fibrillation I48.91 Basal cell carcinoma C44.91 Anemia, unspecified type D64.9 Anemia type: unspecified type Assessment & Plan Assessment & Plan (1) Hypertension: Code(s): I10 - Essential (primary) hypertension Category: Medical Qualifiers: Hypertension type: essential hypertension Qualified Code(s): I10 - Essential (primary) hypertension Plan: The patient's blood pressure is elevated, with recent home readings in the high 150s to low 160s and an in-office reading of 168/74 mmHg. The metoprolol dosage will be increased from 25 mg to 50 mg daily. The patient has a refill for the 25 mg tablets, but a new prescription for 50 mg tablets will be sent to the pharmacy. She is instructed to continue monitoring her blood pressure at home and to report any symptoms such as lightheadedness, dizziness, or chest pain. Follow-up is scheduled in a couple of months to recheck her blood pressure. (2) Aortic stenosis: Comment: mild 2021 1.5 cm December 2023he left ventricular systolic function is normal. The calculated ejection fraction is 64% by biplane method. - There is moderate to severe aortic valve stenosis. 0.72 cm2 - There is moderate posterior mitral annular calcification. Dr. Donnelly TAVR 11/2024 Code(s): I35.0 - Nonrheumatic aortic (valve) stenosis Category: Medical Qualifiers: Cardiac valve disease etiology: nonrheumatic Qualified Code(s): I35.0 - Nonrheumatic aortic (valve) stenosis Plan: Patient has been doing well postoperatively denies any symptoms at this time. She will continue to follow with Cardiology and has upcoming echocardiogram in 11 months. (3) Atrial fibrillation: Comment: 06/2023 Code(s): I48.91 - Unspecified atrial fibrillation Category: Medical Plan: Has had no recurrence continue to follow with Cardiology. (4) Basal cell carcinoma: Code(s): C44.91 - Basal cell carcinoma of skin, unspecified Category: Medical Plan: He is initiating by [facility] for yearly exam. (5) Anemia: Code(s): D64.9 - Anemia, unspecified Category: Medical Qualifiers: Anemia type: unspecified type Qualified Code(s): D64.9 - Anemia, unspecified Plan: The patient has a history of mild anemia and has been taking iron supplements, which she tolerates well. Recent lab results from her cardiology appointment will be obtained. Lab work to recheck her anemia and iron levels will be ordered to be completed before her next follow-up appointment in two months. Plan This note was constructed using voice recognition software. While every effort has been made to ensure accuracy and integration software engineer, still areas may have been included sometimes these areas may affect the content or meeting of the given symptoms. Total time spent caring for the patient today was 20 minutes. This includes time spent before the visit reviewing the chart, time spent during the visit, and time spent after the visit and documentation. Patient was informed and verbally consented to the use of an ambient scribe for clinic note documentation during this visit. Orders: Orders Comprehensive Met. Panel Today D64.9 - Anemia, unspecified, Z00.00 - Encounter for general adult medical examination without abnormal findings Vitamin B12 and Folate Today Z13.21 - Encounter for screening for nutritional disorder Complete Blood Count Auto Diff Today D64.9 - Anemia, unspecified, Z13.0 - Encounter for screening for diseases of the blood and blood-forming organs and certain disorders involving the immune mechanism IRON PROFILE Today D64.9 - Anemia, unspecified Ferritin Today D64.9 - Anemia, unspecified TSH reflex Free T4 Today Z13.29 - Encounter for screening for other suspected endocrine disorder Vitamin D 25-OH Total Today Z13.21 - Encounter for screening for nutritional disorder Lipid Panel Today E78.00 - Pure hypercholesterolemia, unspecified Medications: New metoprolol succinate ER 50 mg PO DAILY 90 tabs 0RF Discontinued metoprolol succinate ER Discontinued Reason: Stopped on Transfer 25 mg PO DAILY 90 tabs 0RF
[2025-02-16 09:58] VITALS: BP 182/80; PULSE 82; TEMP 36.2; O2SAT 97; BMI 26.4
[2025-02-16 10:31] VITALS: BP 168/74
== END 2025-02-16 10:44 | disposition home or self-care (01) ==
LOC: HO.HMCH 09:56
PROVIDERS: PCP Internal Medicine
DX: I10 Essential (primary) hypertension (principal); I35.0 Nonrheumatic aortic (valve) stenosis; I48.91 Unspecified atrial fibrillation; C44.91 Basal cell carcinoma of skin, unspecified; D64.9 Anemia, unspecified

== ENCOUNTER → 2025-02-16 09:55 | Outpatient (BNVA) | payer MEDICARE, SELFPAY | PROVIDERS: PCP Internal Medicine | DX: I10 Essential (primary) hypertension (principal); I35.0 Nonrheumatic aortic (valve) stenosis; I48.91 Unspecified atrial fibrillation; C44.91 Basal cell carcinoma of skin, unspecified; D64.9 Anemia, unspecified | CPT/HCPCS: 99212 ==